=== PATIENT | female | born 1940 | race Caucasian/White ===

== ENCOUNTER 2021-10-11 00:24 | Emergency (ER) | payer MEDICARE, SELFPAY ==
[2021-10-11 00:37] VITALS: BP 182/64; BP 200/100; PULSE 76; PULSE 86; RESP 18; TEMP 36.9; O2SAT 96; BMI 32.1
--- NOTE | 2021-10-11 00:46 | ED.EPISTAXIS ---
History of Present Illness General Chief Complaint: Epistaxis Stated Complaint: nose bleed Source: patient and EMS Mode of arrival: EMS Limitations: no limitations History of Present Illness HPI Narrative: 81-year-old female presents via EMS for epistaxis. Patient has had 3 episodes of nose bleeds today, woke up with a nose bleed. Patient is on aspirin, does not report any digital trauma, and denies any other concerning symptoms. Location: Yes left naris Onset/current episode: Yes hour(s) Duration: Yes intermittent Pertinent past history: Yes hypertension and Yes history of previous nose bleed Context: Yes aspirin use and Yes hypertension Associated symptoms: Yes bleeding down back of throat Treatment prior to arrival: Yes nose pinching, Yes head leaning forward and Yes stuff nose with tissue Related Data Previous Rx's Medication Instructions Recorded amoxicillin 875 mg-potassium 1 tab PO Q12H 3 Days #6 tab 10/11/21 clavulanate 125 mg tablet Allergies Allergy/AdvReac Type Severity Reaction Status Date / Time Sulfa (Sulfonamide Allergy Mild HIVES Verified 10/11/21 00:36 Antibiotics) Review of Systems Review of Systems: Constitutional: No Fever, No Chills ENT/Mouth: Positive epistaxis, No Ear Pain, No Hoarseness, No sore throat Eyes: No Eye Pain, No Swelling, No Redness, No Foreign Body Cardiovascular: No Chest Pain, No SOB Respiratory: No Cough, No Dyspnea Gastrointestinal: No Nausea, No Vomiting, No Diarrhea, No abdominal Pain Genitourinary: No Dysuria, No Hematuria Musculoskeletal: No joint pain, No Myalgias, No Joint Swelling Skin: No Skin lacerations, No rash Neuro: No Weakness, No Numbness, No Paresthesias, No Loss of Consciousness, No Dizziness, No Headache Psych: No Anxiety/Panic, No Depression Heme/Lymph: no easy bruising, no Lymphadenopathy Endocrine: No Polyuria, No Polydipsia Yes all other systems are reviewed and are negative PMFSH Past Medical History Attestation statement: The following information was validated with the patient. Source: old records reviewed Social History Social History Alcohol intake: never Patient Tobacco Use Status: Former Tobacco user Use of substances other than those prescribed or required for medical reasons: No Advance Directives: No Advance Directives Information Provided: Yes Physical Exam Vital Signs: Vital Signs: Last Vital Signs Temp 98.4 F 10/11/21 00:37 Pulse 76 10/11/21 00:37 Resp 18 10/11/21 00:37 BP 182/64 H 10/11/21 00:37 Pulse Ox 96 10/11/21 00:37 BMI result Body Mass Index 32.1 Appearance: Alert. Oriented X3. No acute distress. Eyes: Pupils equal, round and reactive to light. ENT: Pharynx normal. Left Guillermo epistaxis, bleeding at the anterior septum. Neck: Normal inspection. Neck supple. CVS: Normal heart rate and rhythm. Pulses normal. Respiratory: No respiratory distress. Breath sounds normal. Abdomen: Soft and nontender. Skin: Skin warm and dry. Normal skin color. Normal skin turgor. Extremities: Moves all extremities against resistance. Neuro: No motor deficit. No sensory deficit. Cranial nerves 2-12 intact. Course Course Course Narrative: 81-year-old female presents with 3rd episode of epistaxis today. On my exam patient is actively bleeding, I pulled a large blood clot out of her left naris and noted active bleeding to an area of the anterior septum. Considering this is her 3rd episode of bleeding, will apply rhino rocket. Rhino rocket with Betadine applied with good effect. Patient tolerated procedure well. 5 mL of air inflated. Will give Augmentin. 01:41 no bleeding noted. Patient will be discharged home. Understands she must return 3 days to have rocket removed. Patient verbalized understanding of and agrees to plan of care to discharge home. Verbalized understanding of signs and symptoms indicating need for emergent intervention MDM - Epistaxis Differential Diagnosis Differential diagnosis: Likely anterior epistaxis Medical Records Attestation: I reviewed the patient's medical records. Procedures Epistaxis Control Nostril: Yes left Direct inspection: Yes anterior source identified Direct inspection method: Yes nasal speculum Clots removed by: Yes blowing nose and Yes manually Epistaxis treatment: Yes nasal tampon Results of treatment: Yes bleeding controlled Complications: Yes none Discharge Plan Discharge Clinical Impression: Epistaxis Patient Disposition: Home, Self-Care Instructions: Nosebleed (ED) Additional Instructions: You were evaluated for nose bleed. We placed a nasal tampon to stop the bleeding. Please return in 3 days to have device removed. Take Augmentin 875 mg every 12 hours for the next 3 days. Thank you for choosing this emergency department for evaluation. Please follow-up with primary care physician as needed. Return to the emergency department for any new, concerning, or worsening symptoms. Prescriptions: New amoxicillin-pot clavulanate 875-125 mg tablet 1 tab PO Q12H 3 Days Qty: 6 0RF
--- NOTE | 2021-10-11 00:50 | PC.NURSE ---
pt a&ox3, vss - hypertensive, bp has gone down since EMS picked pt up. 3 episodes of epistaxis today, pt on aspirin. pending ED provider.
[2021-10-11 02:00] VITALS: BP 185/70; PULSE 79; O2SAT 96
[2021-10-11] MEDS: Amoxicillin/Potassium Clav 875 MG TABLET PO (02:49)
--- NOTE | 2021-10-11 02:49 | PC.NURSE ---
medicated per provider order. daughter will need a phone call to pick pt up when she gets out of work at 8:00a.
--- NOTE | 2021-10-11 02:52 | PC.NURSE ---
Addendum entered by Talya Kidd 10/11/21 06:53: report given to GLYNN Galvin daughter called, will pick pt up at 8:30AM Original Note: report received from GLYNN Vargas
[2021-10-11 04:00] VITALS: RESP 20
[2021-10-11 05:45] VITALS: BP 184/73; PULSE 74; RESP 16; TEMP 36.6; O2SAT 96
== END 2021-10-11 09:12 | disposition home or self-care (01) ==
PROVIDERS: Emergency Provider Emergency Medicine
DX: R04.0 Epistaxis (principal); I10 Essential (primary) hypertension; Z79.82 Long term (current) use of aspirin
CPT/HCPCS: 30901; 99283; 99284

== ENCOUNTER 2021-12-21 15:35 | Emergency (ER) | payer MEDICARE, SELFPAY ==
--- NOTE | ~2021-12-21 | XR_ITS ---
EXAMINATION: CR X-RAY FOOT AND ANKLE RIGHT CLINICAL INFORMATION: [place] snap femoral fracture. COMPARISON: None TECHNIQUE: 3 views each of the right foot and ankle were obtained. An arrow points to the base of the fifth metatarsal. FINDINGS: There is an acute, spiral type comminuted fracture of the base of the fifth metatarsal. The remainder of the metatarsals are intact. The ankle joint and mortise are intact. The tarsal bones are normally aligned. Small to moderate plantar and retrocalcaneal spurs are noted. The tarsal bones are normally aligned. Mild intertarsal, first and second metatarsophalangeal and distal interphalangeal degenerative joint changes are seen. There is mild soft tissue swelling. XR/XR ankle RT 2V IMPRESSION: 1. Acute, nondisplaced spiral type fracture of the base of the fifth metatarsal. 2. Mild degenerative joint changes as detailed above.
--- NOTE | ~2021-12-21 | XR_ITS ---
EXAMINATION: CR X-RAY FOOT AND ANKLE RIGHT CLINICAL INFORMATION: [place] snap femoral fracture. COMPARISON: None TECHNIQUE: 3 views each of the right foot and ankle were obtained. An arrow points to the base of the fifth metatarsal. FINDINGS: There is an acute, spiral type comminuted fracture of the base of the fifth metatarsal. The remainder of the metatarsals are intact. The ankle joint and mortise are intact. The tarsal bones are normally aligned. Small to moderate plantar and retrocalcaneal spurs are noted. The tarsal bones are normally aligned. Mild intertarsal, first and second metatarsophalangeal and distal interphalangeal degenerative joint changes are seen. There is mild soft tissue swelling. XR/XR foot RT 2V IMPRESSION: 1. Acute, nondisplaced spiral type fracture of the base of the fifth metatarsal. 2. Mild degenerative joint changes as detailed above.
[2021-12-21 16:23] VITALS: BP 186/69; PULSE 73; RESP 18; TEMP 37; O2SAT 98; BMI 30.8
--- NOTE | 2021-12-21 16:43 | ECG_ITS ---
Test Reason : FALL Blood Pressure : / mmHG Vent. Rate : 066 BPM Atrial Rate : 066 BPM P-R Int : 176 ms QRS Dur : 074 ms QT Int : 426 ms P-R-T Axes : 056 -23 053 degrees QTc Int : 446 ms Sinus rhythm with Premature atrial complexes Otherwise normal ECG When compared with ECG of 21-JUL-2018 04:23, Premature atrial complexes are now Present Referred By: Miranda Burks Electronically Signed By:HYACINTH SALCIDO MD
[2021-12-21] MEDS: Dextrose 50 % 25 GM/50 ML SYRINGE IVPUSH (16:48)
[2021-12-21 16:51] LABS: MANUAL DIFF FLAG NO
[2021-12-21 17:01] LABS: Basophils Absolute Auto 0.1 X10*3/uL (0.0-0.2); Basophils Percent Auto 0.4 % (0-2); Eosinophils Absolute Auto 0.2 X10*3/uL (0.0-0.4); Eosinophils Percent Auto 1.2 % (0-4); Hematocrit 39.4 % (37.0-47.0); Hemoglobin 12.8 g/dl (12.0-16.0); Imm Gran Abs Auto 0.04 X10*3/uL (0.00-0.03); Imm Gran Pct Auto 0.3 % (0.0-0.4); Lymphocytes Absolute Auto 4.3 X10*3/uL (1.2-4.9); Mean Corpuscular HGB Conc 32.5 g/dl (31.0-35.0); Mean Corpuscular Hemoglobin 30.8 pg (27.0-33.0); Mean Corpuscular Volume 94.9 fL (80.0-98.0); Mean Platelet Volume 10.5 fL (9.4-12.3); Monocytes Absolute Auto 0.9 X10*3/uL (0.1-1.2); Monocytes Percent Auto 6.7 % (2-11); Neutrophils Percent Auto 59.4 % (45-73); Platelet Count 197 X10*3/uL (160-400); Red Blood Count 4.15 X10*6/uL (4.20-5.50); Red Cell Distribution Width 12.9 % (11.0-16.0); White Blood Count 13.5 X10*3/uL (4.8-10.8)
--- NOTE | 2021-12-21 17:05 | ED.LOWEXIN ---
HPI - Extremity Injury (Lower) General Chief Complaint: Extremity Injury, Lower Stated Complaint: ? R Foot Fx S/P Fall 12/21/21 Time Seen by Provider: 12/21/21 16:43 Source: patient and family History of Present Illness HPI Narrative: 81-year-old female who presents with loss of balance while putting on her pants today and felt a ?snap? right lateral foot with some bruising and then noted afterwards she was not able to bear weight. Patient states that she took her diabetic medications this morning which is insulin and then did not eat. Nursing noted that patient became clammy and pale at triage and noted that her point of care was 37 and patient was immediately given juice. Otherwise, patient denies any fever, chills, nausea, vomiting, abdominal pain, urinary pain/burning/frequency. Related Data Home Medications Medication Instructions Recorded Confirmed atorvastatin 80 mg tablet 1 tab PO BEDTIME 12/21/21 12/21/21 citalopram 20 mg tablet 1 tab PO DAILY 12/21/21 12/21/21 insulin aspart U-100 100 unit/mL 8 unit subcut TID 12/21/21 12/21/21 subcutaneous solution (Novolog U-100 Insulin aspart) insulin glargine 100 unit/mL (3 25 unit subcut BEDTIME 12/21/21 12/21/21 mL) subcutaneous pen (Basaglar KwikPen U-100 Insulin) isosorbide mononitrate 60 mg 1 tab PO DAILY 12/21/21 12/21/21 tablet,extended release 24 hr metoprolol succinate 50 mg 1 tab PO DAILY 12/21/21 12/21/21 tablet,extended release 24 hr pantoprazole 40 mg tablet,delayed 1 tab PO DAILY 12/21/21 12/21/21 release primidone 50 mg tablet 1 tab PO TID 12/21/21 12/21/21 Allergies Allergy/AdvReac Type Severity Reaction Status Date / Time Sulfa (Sulfonamide Allergy Mild HIVES Verified 12/21/21 16:22 Antibiotics) Review of Systems Review of Systems: Pertinent positives and negatives as stated in HPI 10 point review of systems is otherwise negative. [facility] Past Medical History Source: nursing notes reviewed Social History Social History Alcohol intake: never Patient Tobacco Use Status: Former Tobacco user Use of substances other than those prescribed or required for medical reasons: No Advance Directives: No Advance Directives Information Provided: No Physical Exam Vital Signs: Vital Signs: Last Vital Signs Temp 98.6 F 12/21/21 16:23 Pulse 73 12/21/21 16:23 Resp 18 12/21/21 16:23 BP 186/69 H 12/21/21 16:23 Pulse Ox 98 12/21/21 16:23 O2 Del Method 12/21/21 16:23 BMI result Body Mass Index 30.8 VITAL SIGNS: Reviewed. GENERAL: Well developed, well nourished, in no acute distress. HEAD: Normocephalic/atraumatic EYES: PERRLA, EOMI EARS: Ext canals without abnormality OROPHARYNX: no oral lesions noted, posterior pharynx clear LUNGS: Normal breath sounds. No adventitious sounds or accessory muscle use. SpO2<98> CARDIOVASCULAR: Regular rate and rhythm without noted murmurs, no JVD or lower extremity edema. ABDOMEN: Soft, non-tender, non-distended with bowel sounds. MUSCULOSKELETAL: No tenderness, deformities, or effusions noted on gross inspection. EXTREMITIES: No cyanosis, clubbing or edema; RIGHT FOOT: Patient has noted ecchymosis over the 5th metatarsal with pain on palpation and mild swelling. SKIN: Inspection of the skin reveals no rashes NEUROLOGIC: Alert and oriented x 4. Strength and sensation to light touch were grossly intact x 4. Course Course Course Narrative: 81-year-old female with history and clinical presentation consistent fracture of the left foot which was further corroborated by x-ray showing acute nondisplaced spiral type fracture of the base the 5th metatarsal. Her daughter is at bedside but states that she is unable to care for her mother at home as she has just undergone surgery herself and has her left arm in a sling. Otherwise, patient was at home by herself and being placed in a walking boot and having follow-up for Orthopedics will likely increase chances of falls and so plan is for patient to go to short-term rehab. Both the patient and the daughter are aware of the plan. Basic labs will be conducted and case management/PT referrals have been placed. Review of all investigations significant for reactive leukocytosis and chronic stable CKD, serum glucose within normal range and will continue to be monitored. COVID is negative and patient is otherwise medically cleared for placement in short-term rehab. Reevaluation(s) Reevaluation #1: Patient placed in physician observation because the patient needed more time for labs, PT eval, case management placement. At the time observation was started the patient's vital signs were stable, patient is alert and oriented, neuro: Nonfocal, CV RRR, lungs clear Time: 17:13 MDM - Extremity Injury (Lower) Lab Data Result diagrams: 12/21/21 16:46 12/21/21 16:46 Labs: Lab Results 12/21/21 12/21/21 12/21/21 Range/Units 16:24 16:31 16:46 WBC 13.5 H (4.8-10.8) X10*3/uL RBC 4.15 L (4.20-5.50) X10*6/uL Hgb 12.8 (12.0-16.0) g/dl Hct 39.4 (37.0-47.0) % MCV 94.9 (80.0-98.0) fL MCH 30.8 (27.0-33.0) pg MCHC 32.5 (31.0-35.0) g/dl RDW 12.9 (11.0-16.0) % Plt Count 197 (160-400) X10*3/uL MPV 10.5 (9.4-12.3) fL Immature Gran % (Auto) 0.3 (0.0-0.4) % Neut % (Auto) 59.4 (45-73) % Lymph % (Auto) 32.0 (20-40) % [place] % (Auto) 6.7 (2-11) % Eos % (Auto) 1.2 (0-4) % Baso % (Auto) 0.4 (0-2) % Lymph # (Auto) 4.3 (1.2-4.9) X10*3/uL [place] # (Auto) 0.9 (0.1-1.2) X10*3/uL Eos # (Auto) 0.2 (0.0-0.4) X10*3/uL Baso # (Auto) 0.1 (0.0-0.2) X10*3/uL Abs Immat Gran (auto) 0.04 H (0.00-0.03) X10*3/uL Absolute Neuts (auto) 8.0 (2.0-8.3) x10*3/uL Absolute Nucleated RBC 0.000 (0.0-0.012) X10*3/uL Nucleated RBC % (auto) 0.0 (0.0-0.2) /100WBC Sodium (135-145) mmol/L Potassium (3.3-5.1) mmol/L Chloride (96-108) mmol/L Carbon Dioxide (22-29) mmol/L Anion Gap (12-20) BUN (9-16) mg/dL Creatinine (0.5-1.4) mg/dL Estim Creat Clear Calc Estimated GFR POC Glucose 37 L* 46 L* (60-115) mg/dL Random Glucose (60-115) mg/dL Calcium (8.4-10.2) mg/dL Total Bilirubin (0.0-1.0) mg/dL AST (5-31) U/L ALT (0-31) U/L Alkaline Phosphatase (39-117) U/L Troponin I High Sens (<3.5-17.0) ng/L Total Protein (6.5-8.0) g/dL Albumin (3.5-5.0) g/dL COVID-19 ([facility]) (Negative) COVID-19 Clin Com 12/21/21 12/21/21 12/21/21 Range/Units 16:46 16:46 18:11 WBC (4.8-10.8) X10*3/uL RBC (4.20-5.50) X10*6/uL Hgb (12.0-16.0) g/dl Hct (37.0-47.0) % MCV (80.0-98.0) fL MCH (27.0-33.0) pg MCHC (31.0-35.0) g/dl RDW (11.0-16.0) % Plt Count (160-400) X10*3/uL MPV (9.4-12.3) fL Immature Gran % (Auto) (0.0-0.4) % Neut % (Auto) (45-73) % Lymph % (Auto) (20-40) % [place] % (Auto) (2-11) % Eos % (Auto) (0-4) % Baso % (Auto) (0-2) % Lymph # (Auto) (1.2-4.9) X10*3/uL [place] # (Auto) (0.1-1.2) X10*3/uL Eos # (Auto) (0.0-0.4) X10*3/uL Baso # (Auto) (0.0-0.2) X10*3/uL Abs Immat Gran (auto) (0.00-0.03) X10*3/uL Absolute Neuts (auto) (2.0-8.3) x10*3/uL Absolute Nucleated RBC (0.0-0.012) X10*3/uL Nucleated RBC % (auto) (0.0-0.2) /100WBC Sodium 141 (135-145) mmol/L Potassium 4.0 (3.3-5.1) mmol/L Chloride 110 H (96-108) mmol/L Carbon Dioxide 20 L (22-29) mmol/L Anion Gap 15 (12-20) BUN 31 H (9-16) mg/dL Creatinine 1.47 H (0.5-1.4) mg/dL Estim Creat Clear Calc 26.6 Estimated GFR 34 POC Glucose (60-115) mg/dL Random Glucose 65 (60-115) mg/dL Calcium 9.7 (8.4-10.2) mg/dL Total Bilirubin 0.2 (0.0-1.0) mg/dL AST 22 (5-31) U/L ALT 17 (0-31) U/L Alkaline Phosphatase 75 (39-117) U/L Troponin I High Sens 4.0 (<3.5-17.0) ng/L Total Protein 7.6 (6.5-8.0) g/dL Albumin 4.3 (3.5-5.0) g/dL COVID-19 ([facility]) Negative (Negative) COVID-19 Clin Com See Note ECG Data Attestation: I personally reviewed and interpreted this ECG as follows: Prior ECG tracings: available for review Interpretation: Sinus rhythm with PACs, HR-66, no STEMI, [place]/QRS/QTC are within normal limits. Discharge Plan Discharge Clinical Impression: Fracture of fifth metatarsal bone of right foot, Diabetes Patient Disposition: Still a Patient Prescriptions: No Action primidone 50 mg tablet 1 tab PO TID atorvastatin 80 mg tablet 1 tab PO BEDTIME metoprolol succinate 50 mg tablet extended release 24 hr 1 tab PO DAILY isosorbide mononitrate 60 mg tablet extended release 24 hr 1 tab PO DAILY citalopram 20 mg tablet 1 tab PO DAILY insulin aspart U-100 [Novolog U-100 Insulin aspart] 100 unit/mL solution 8 unit subcut TID pantoprazole 40 mg tablet,delayed release (DR/EC) 1 tab PO DAILY insulin glargine [Basaglar KwikPen U-100 Insulin] 100 unit/mL (3 mL) insulin pen 25 unit subcut BEDTIME
[2021-12-21 17:11] LABS: Alanine Aminotransferase 17 U/L (0-31); Albumin Level 4.3 g/dL (3.5-5.0); Alkaline Phosphatase 75 U/L (39-117); Anion Gap 15 (12-20); Aspartate Amino Transferase 22 U/L (5-31); Bilirubin Total 0.2 mg/dL (0.0-1.0); Blood Urea Nitrogen 31 mg/dL (9-16); Calcium 9.7 mg/dL (8.4-10.2); Carbon Dioxide 20 mmol/L (22-29); Chloride 110 mmol/L (96-108); Creatinine Clr Calc Pharmacy 26.6; Estimated Glomerular Filt Rate 34; Glucose Random 65 mg/dL (60-115); Sodium 141 mmol/L (135-145); Total Protein 7.6 g/dL (6.5-8.0)
[2021-12-21 17:25] LABS: Glucose, Whole Blood 46 mg/dL (60-115)
[2021-12-21 17:25] LABS: Glucose, Whole Blood 37 mg/dL (60-115)
[2021-12-21] MEDS: Acetaminophen 325 MG TABLET 975 MG PO (17:47)
--- NOTE | 2021-12-21 18:28 | PHA.MEDREC ---
Pharmacy Consult ? Medication Reconciliation Pharmacy has completed the medication reconciliation. Dose on basaglar decreased to 25 units Thanks Esteban
[2021-12-21 18:38] LABS: COVID-19 Test Negative (Negative); IDNOW Serial# 9DB6401D
--- NOTE | 2021-12-21 18:58 | PC.NURSE ---
Assumed care of this pt. at 1900 - report from Lani Herrera RN
[2021-12-21 19:55] VITALS: BP 155/64; PULSE 62; RESP 14; TEMP 36.8; O2SAT 96
--- NOTE | 2021-12-21 19:55 | PC.NURSE ---
Pt. awaiting walking boot. Nursing construction supervisor/carpenter checked for boot in OR and there were none. Pt. will need to obtain walking boot from Ortho. tomorrow, 12/22
[2021-12-21 20:23] LABS: Glucose, Whole Blood 51 mg/dL (60-115)
--- NOTE | 2021-12-21 21:00 | MHC.CM.ED ---
CM met with patient at request of Dr. Burks. Pt has spiral fx of base of 5th metatarsal. Lives alone. Daughter recently had abd surgery and has a fx wrist. Unable to assist mother at this time. Pt would like to go home, but does understand that she may have trouble getting around with a boot on and her walker. Reluctantly agreeable to STR. Understands she will have a PT eval in the am and they will make recommendations for further care. Pt uses a wheeled walker and has MOW. HCP/daughter Jennifer Cummings ([phone]). Vax/boosted with [employer]. Pt has no requests for facilities. Will make local referrals. Pt awake she will have final decision once bed offers are made. CM to follow for d/c needs.
[2021-12-22] VITALS: BP 191/71; PULSE 64; RESP 16; TEMP 36.6; O2SAT 98
[2021-12-22 00:23] LABS: Glucose, Whole Blood 92 mg/dL (60-115)
--- NOTE | 2021-12-22 00:48 | PC.NURSE ---
GLYNN ALONSO IS AWARE OF PATIENT HIGH BP .
[2021-12-22] MEDS: Atorvastatin Calcium 80 MG TABLET PO (01:32)
[2021-12-22] MEDS: Primidone 50 MG TABLET PO ×2 (01:32→11:24)
[2021-12-22 02:48] LABS: CDiff Gene PCR NEGATIVE (Negative)
[2021-12-22] MEDS: Acetaminophen 325 MG TABLET 975 MG PO (05:11)
[2021-12-22 05:26] VITALS: BP 179/57; PULSE 67; RESP 17; TEMP 36.7; O2SAT 96
[2021-12-22 07:19] VITALS: BP 190/62; PULSE 76; RESP 16; TEMP 36.4; O2SAT 95
[2021-12-22 07:24] LABS: Glucose, Whole Blood 156 mg/dL (60-115)
[2021-12-22 07:37] VITALS: PULSE 76; O2SAT 95
[2021-12-22] MEDS: Insulin Lispro 100 UNIT/ML 3 ML VIAL 8 UNIT SUBCUT (08:36)
[2021-12-22] MEDS: Isosorbide Mononitrate 60 MG TAB.ER.24H PO (08:36)
[2021-12-22] MEDS: Escitalopram Oxalate 10 MG TABLET PO (08:36)
[2021-12-22] MEDS: Metoprolol Succinate ER 50 MG TAB.ER.24H PO (08:36)
--- NOTE | 2021-12-22 08:47 | PC.NURSE ---
assumed care of pt; pt states no pain; administered pt meds per MAR; call hamilton within reach
--- NOTE | 2021-12-22 10:01 | PC.NURSE ---
Pt's daughter states she doesn't feel safe bringing pt home, aware pt passed PT at this time. CM made aware, she will f/u with daughter.
--- NOTE | 2021-12-22 10:05 | MHC.CM.ED ---
Addendum entered by Steph Ga 12/22/21 12:24: Spoke with patient's daughter, Jennifer, via telephone at [phone]. T/w explained patient passed physical therapy and rehab would not be authorized by Medicare. Jennifer disappointed but understands patient can't privately pay at a short term rehab. Jennifer will be at ER around 1pm to transport her mother home. Patient, Glenis MAKI and Alexia PAUL aware. Original Note: Patient remains in ER. Physical therapy eval completed. Home with services is recommended. Met with patient in regards to discharge planning. Patient feels she can safely return home with VNA. Patient's daughter will transport her home when she returns from her doctors appointment. Spoke with GLYNN Galvin about discharge plan. Glenis notified T/W that patient's daughter does not feel patient can safely return home. Will wait for daughter to return so discharge plan can be discussed. Continue to monitor for d/c needs.
--- NOTE | 2021-12-22 10:22 | PC.NURSE ---
Called pharmacy to request primidone. To be sent.
[2021-12-22 11:00] LABS: Appearance Urine CLEAR; Color Urine YELLOW; Glucose Urine UA NEG (NEG); Leukocyte Esterase Urine NEG (NEG); Nitrite Urine NEG (NEG); UACC Culture Trigger NO; Urine Blood 2+ (NEG); Urine Ketones NEG (NEG); Urine Protein 2+ MG/DL (NEG-TRACE)
[2021-12-22 11:14] LABS: Bacteria Urine 3+ /LPF; Squamous Epithelial Cell Urine TRACE /LPF
== END 2021-12-22 13:14 | disposition home or self-care (01) ==
PROVIDERS: Nurse Practitioner Family; Emergency Provider Student in an Organized Health Care Education/Training Program; PCP Internal Medicine
DX: S92.501A Displaced unspecified fracture of right lesser toe(s), initial encounter for closed fracture (principal); E11.9 Type 2 diabetes mellitus without complications; M25.571 Pain in right ankle and joints of right foot; R07.89 Other chest pain; W01.0XXA Fall on same level from slipping, tripping and stumbling without subsequent striking against object, initial encounter; Y93.9 Activity, unspecified; Y92.9 Unspecified place or not applicable; Y99.9 Unspecified external cause status; Z79.899 Other long term (current) drug therapy; Z20.822 Contact with and (suspected) exposure to COVID-19; Z87.891 Personal history of nicotine dependence
CPT/HCPCS: 36415; 73600; 73620; 80053; 81001; 82947; 84484; 85025; 87493; 87635; 93005; 96374; 97162; 99285

== ENCOUNTER 2022-01-22 19:28 | Emergency (ER) | payer MEDICARE, SELFPAY ==
[2022-01-22 19:33] VITALS: BP 182/69; BP 210/80; PULSE 81; PULSE 85; RESP 18; TEMP 36.7; O2SAT 98; BMI 26.4
--- NOTE | 2022-01-22 19:40 | ED_ITS ---
HPI - Eye Problem General Chief complaint: Eye Problems Stated complaint: bleeding in the left eye Time Seen by Provider: 01/22/22 19:36 Source: patient and EMS Mode of arrival: EMS Limitations: no limitations History of Present Illness HPI Narrative: 81-year-old female with history of diabetic retinopathy managed by Dr. Mcnamara in [place] presents to the ER for evaluation of acute onset of left eye bleeding and dull pain after she had an injection in the left eye at 17:00 today. she states she noted her left eye the start to feel funny and when she looked in the mirror she noticed a most the entire portion of her sclera was bloody. She reported a new dull achy type pain. She reported persistent blurry vision in that left eye, unchanged from prior. she reports a history of the same procedure in the right eye about a month ago with no adverse side effects. She is on aspirin but no full anticoagulation. MD chief complaint: eye pain and eye redness Onset (ago): hour(s) Onset description: sudden Duration: constant Location: left eye Eye Symptoms: redness and pain Mechanism: direct trauma Severity: mild Severity scale (1-10): 3 If Pain, Quality: aching Context: history of glaucoma and recent eye procedure Associated symptoms: none Treatments Prior to Arrival: none Related Data Home Medications Medication Instructions Recorded Confirmed atorvastatin 80 mg tablet 1 tab PO BEDTIME 12/21/21 12/21/21 citalopram 20 mg tablet 1 tab PO DAILY 12/21/21 12/21/21 insulin aspart U-100 100 unit/mL 8 unit subcut TID 12/21/21 12/21/21 subcutaneous solution (Novolog U-100 Insulin aspart) insulin glargine 100 unit/mL (3 25 unit subcut BEDTIME 12/21/21 12/21/21 mL) subcutaneous pen (Basaglar KwikPen U-100 Insulin) isosorbide mononitrate 60 mg 1 tab PO DAILY 12/21/21 12/21/21 tablet,extended release 24 hr metoprolol succinate 50 mg 1 tab PO DAILY 12/21/21 12/21/21 tablet,extended release 24 hr pantoprazole 40 mg tablet,delayed 1 tab PO DAILY 12/21/21 12/21/21 release primidone 50 mg tablet 1 tab PO TID 08/01/22 08/01/22 Allergies Allergy/AdvReac Type Severity Reaction Status Date / Time Sulfa (Sulfonamide Allergy Mild HIVES Verified 12/21/21 16:22 Antibiotics) Review of Systems Review of Systems: Constitutional: No Fever, No Chills ENT/Mouth: No sore throat, No Rhinorrhea Eyes: + Eye Pain, No Swelling, + Redness, +Blurred vision Cardiovascular: No Chest Pain, No SOB Respiratory: No Cough, No Sputum Gastrointestinal: No Nausea, No Vomiting, No abdominal Pain Genitourinary: No Hematuria Musculoskeletal: No joint pain, No Myalgias Skin: No Skin Lesions, No rash Neuro: No Weakness, No Numbness, No Dizziness, No Headache Psych: + Anxiety/Panic, No Depression Heme/Lymph: No Bruising PMFSH Social History Social History Alcohol intake: never Patient Tobacco Use Status: Former Tobacco user Use of substances other than those prescribed or required for medical reasons: No Advance Directives: No Advance Directives Information Provided: No Physical Exam Vital Signs: Vital Signs: Last Vital Signs Temp 98.0 F 01/22/22 19:41 Pulse 81 01/22/22 19:41 Resp 18 01/22/22 19:41 BP 182/69 H 01/22/22 19:41 Pulse Ox 98 01/22/22 19:41 O2 Del Method 01/22/22 19:41 BMI result Body Mass Index 26.4 Appearance: Alert. Oriented X3. No acute distress. HEENT: left eye with scleral hemorrhage involving the upper left and lower left area, pupil is dilated, prior glaucoma surgery changes. CVS: Normal heart rate and rhythm. Pulses normal. Respiratory: No respiratory distress. Skin: Skin warm and dry. Normal skin color. Normal skin turgor. No rashes. Extremities: normal inpsection Neuro: Oriented X 3. No motor deficit. No sensory deficit. Course Course Course Narrative: 81-year-old female with recent injection to her left eye presents to the ER with sudden onset dull ache and bleeding some flare up. She is not anticoagulation. She has baseline blurred vision in the left eye with end-stage diabetic retinopathy. On examination it appears as this is a subconjunctival hemorrhage as a complication of the procedure. Her intra-ocular pressure is 10. Dr. Mcnamara's office has been contacted. Reevaluation(s) Reevaluation #1: Spoke with Dr. Mcnamara's colleague - normal complication of the injections, recommend warm compresses and tylenol PRN. patient reassured. stable for d/c home. Critical Care Time Critical Care Time Critical Care Time: No Discharge Plan Discharge Clinical Impression: Subconjunctival hemorrhage Patient Disposition: Home, Self-Care Instructions: Subconjunctival Hemorrhage (ED) Additional Instructions: Use warm compresses to your eye a few times per day Take tylenol as needed for pain The bleeding and pain can be normal after this procedure follow-up with Dr. Mcnamara as needed Prescriptions: No Action primidone 50 mg tablet 1 tab PO TID atorvastatin 80 mg tablet 1 tab PO BEDTIME metoprolol succinate 50 mg tablet extended release 24 hr 1 tab PO DAILY isosorbide mononitrate 60 mg tablet extended release 24 hr 1 tab PO DAILY citalopram 20 mg tablet 1 tab PO DAILY insulin aspart U-100 [Novolog U-100 Insulin aspart] 100 unit/mL solution 8 unit subcut TID pantoprazole 40 mg tablet,delayed release (DR/EC) 1 tab PO DAILY insulin glargine [Basaglar KwikPen U-100 Insulin] 100 unit/mL (3 mL) insulin pen 25 unit subcut BEDTIME
[2022-01-22 19:41] VITALS: BP 182/69; PULSE 81; RESP 18; TEMP 36.7; O2SAT 98
[2022-01-22] MEDS: Tetracaine HCl/PF 0.5% Oph Sol 4 ML DROPS 1 DROP EYE-LEFT (20:44)
--- NOTE | 2022-01-22 20:45 | PC.NURSE ---
Pt. up for discharge. Pt. attempting to call family members for a ride home at this time.
--- NOTE | 2022-01-22 22:39 | PC.NURSE ---
Pt. still awaiting ride home from family member. Unsafe to be d/c to waiting room d/t blurred vision from glaucoma shot (reason for visit), and pt. being a fall risk because of this.
--- NOTE | 2022-01-22 23:42 | PC.NURSE ---
Another attempt to contact pt.'s daughter, Jennifer, for transportation home
--- NOTE | 2022-01-23 03:33 | PC.NURSE ---
Daughter, Jennifer, called back. Jennifer planning to shredder picker her mother at 05:30am this morning.
[2022-01-23 05:57] VITALS: BP 170/74; PULSE 89; RESP 18; TEMP 36.6; O2SAT 95
--- NOTE | 2022-01-23 06:02 | PC.NURSE ---
Pt. d/c home safely to daughter, Jennifer, in front lobby. Escorted to front lobby with RN for safety
== END 2022-01-23 06:05 | disposition home or self-care (01) ==
PROVIDERS: Emergency Provider Student in an Organized Health Care Education/Training Program; PCP Internal Medicine
DX: H11.32 Conjunctival hemorrhage, left eye (principal)
CPT/HCPCS: 99283; 99284

== ENCOUNTER 2022-12-30 10:57 | Outpatient (AMB) | payer MEDICARE, SELFPAY ==
--- NOTE | 2022-12-30 11:01 | A.OFFPC_ITS ---
Vital Signs 12/30/22 11:03 Height 5 ft 1 in Weight 141 lb BMI 26.6 BP 126/70 Blood Pressure Location Rt brachial Position Sitting Pulse 68 Pulse Source Pulse Oximeter Pulse Oximetry (%) 98 Intake Visit Reasons: COOK FISH EGGS/HTN , Diabetes , Asthma Intake Note: pt is here for npv, establish care Nursery Attendant Required: No Accompanied by: Daughter Allergies Sulfa (Sulfonamide Antibiotics) Allergy (Mild, Verified 12/30/22 11:24) HIVES Medication List - Last Reconciled 12/30/22 by Todd Espinal PA-C ascorbic acid (vitamin C) ER 500 mg PO DAILY aspirin 81 mg PO DAILY atorvastatin 1 tab PO BEDTIME calcium carbonate (Calcium) 600 mg PO DAILY cetirizine 10 mg PO DAILY PRN cholecalciferol (vitamin D3) 10 mcg PO DAILY citalopram 1 tab PO DAILY ferrous sulfate 325 mg PO DAILY insulin aspart U-100 (Novolog U-100 Insulin aspart) 8 units subcut TID insulin glargine (Basaglar KwikPen U-100 Insulin) 25 units subcut BEDTIME insulin syringe-needle U-100 (BD Insulin Syringe Ultra-Fine) As directed isosorbide mononitrate ER 1 tab PO DAILY metoprolol succinate ER 1 tab PO DAILY nitroglycerin 0.4 mg sublingual Q5M PRN pantoprazole 20 mg PO QAM pen needle, diabetic (BD Ultra-Fine Short Pen Needle) As directed primidone 1 tab PO TID Tobacco use date assessed: 12/30/22 Fall risk assessment: No Falls in past year Last assessed Fall Risk: 12/30/22 Dental Screening Dental Screen Date: 12/30/22 Did you have a dental visit in the last 12 months?: No Did you have a dental problem in the last 6 months where you did not have access to dental care?: No Was dental information given to patient?: Patient declined HPI COOK FISH EGGS/HTN , Diabetes , Asthma HPI Details Patient is an 82-year-old female here today for new patient visit. This the 1st time I am meeting this 82-year-old female with a past medical history significant for type 2 diabetes, hypertension, depression, AFIB, CAD( stent placement), COPD, CHF, GERD. .. Type 2 diabetes: Patient continues on insulin therapy and has been able to manage her blood sugars fairly well. Was seeing chain saw mechanic while in [place]. Today's A1c at 7.9. .. AFIB: Not on anticoagulation due to a severe head bleed, continues on aspirin daily. Followed by surface ship usw supervisor in [place] like to transfer care to [facility]. Currently under rate control with metoprolol. She also has a history of coronary artery disease and has a stent placed. Continues on high potency statin and aspirin. Will check her fasting lipid panel to ensure appropriate LDL below 70. .. Congestive heart failure : Has a chronic history of Congestive heart failure though at this time no need for diuretics. Seems euvolemic on physical exam today. .. Right renal mass: Reviewed previous PCP and Nephrology records--> Was followed by senior sql server database developer [place] for right renal mass. She was to undergo MRI with contrast as recent imaging showing enlarging right renal mass Vaccines: Up-to-date with COVID vaccine, tetanus vaccine and shingles vaccine PFSH Surgical History History of ankle surgery Hx laparoscopic cholecystectomy Hx of hernia repair S/P HORTENCIA (total abdominal hysterectomy) Family History Mother Diabetes Father COPD (chronic obstructive pulmonary disease) Social History Housing: Apartment Alcohol intake: never Patient Tobacco Use Status: Former Tobacco user e-Cigarette/Vaping Use: Never Used service: No Current occupational status: retired Cognitive needs: No Hearing needs: No Vision needs: Yes Questionnaire PHQ-9 Over the last 2 weeks, how often have you been bothered by any of the following problems? 1. Little interest or pleasure in doing things: not at all 2. Feeling down, depressed, or hopeless: several days 3. Trouble falling or staying asleep, or sleeping too much: nearly every day 4. Feeling tired or having little energy: several days 5. Poor appetite or overeating: not at all 6. Feeling bad about yourself - or that you are a failure or have let yourself or your family down: several days 7. Trouble concentrating on things, such as reading the newspaper or watching television: not at all 8. Moving or speaking so slowly that other people could have noticed. Or the opposite - being so fidgety or restless that you have been moving around a lot more than usual: nearly every day 9. Thoughts that you would be better off or of hurting yourself in some way: not at all Total score: 9 Depression Screening Interpretation: Positive 18913 - PHQ-9 Billing: Yes Source: Developed by Drs. Emigdio Webber, Cathy Will, Khris Bernal and colleagues, with an educational belle from [employer]. Thrive Questionnaire Date Thrive assessed: 12/30/22 I am a: Patient What is your living situation today?: I have a steady place to live Within the past 12 months, did the food you bought not last and you didn't have the money to get more?: Never true Within the past 12 months, did you worry whether your food would run out before you got money to buy more?: Never true Do you have trouble paying for medicines?: No Do you have trouble getting transportation to medical appointments?: No Do you have trouble paying your heating and electricity bill?: No Do you have trouble taking care of your child, family member or friend?: No Do you have trouble with day-to-day activities such as bathing, preparing meals, shopping, managing finances, etc.?: No Are you currently unemployed and looking for a job?: No Are you interested in more education?: No Please select the resources that you would like help with: None Currently or been in a relationship where the following occur: no concerns reported SAI-7 AMB Questionnaire SAI-7 Date SAI - 7 assessed: 12/30/22 Feeling nervous, anxious, or on edge: 3 = Nearly every day Not being able to stop or control worryin = Nearly every day Worrying too much about different things: 3 = Nearly every day Trouble relaxin = Nearly every day Being so restless that it is hard to sit still: 3 = Nearly every day Becoming easily annoyed or irritable: 1 = Several days Feeling afraid as if something awful might happen: 0 = Not at all Total ASI-7 score (0-4 normal; 5-9 mild; 10-14 moderate; 15-21 severe): 16 Source: Developed by Drs. Emigdio Webber, Khris Barrientos and colleagues, with an educational belle from [employer]. SAI-7 Assessment Billing SAI-7 Assessment Tool: SAI-7 Assessment 37343 Review of Systems Const Denies headache(s) Eyes Denies loss of vision ENT Denies vertigo, Denies dizziness, Denies headache(s) and Denies sore throat Card Denies chest pain, Denies leg edema and Denies lightheadedness Resp Denies cough, Denies hemoptysis and Denies wheezing GI Denies abdominal pain, Denies melena, Denies constipation, Denies diarrhea and Denies vomiting Denies urinary frequency, Denies dysuria and Denies urinary urgency Musc Denies arthralgias, Denies joint swelling, Denies numbness and Denies tingling Neuro Denies Abnormal speech present, Denies behavioral changes, Denies vertigo, Denies dizziness, Denies headache(s), Denies loss of vision, Denies memory loss, Denies numbness and Denies tingling Psych Denies anxiety, Denies behavioral changes, Denies depression, Denies memory loss and Denies panic attacks Paul/Lymph Denies easy bleeding and Denies easy bruising Aller/Immun Denies wheezing Physical exam (Primary Care) Vital Signs: Last Vital Signs Pulse 68 12/30/22 11:03 BP 126/70 12/30/22 11:03 Pulse Ox 98 12/30/22 11:03 BMI result Body Mass Index 26.6 Tobacco/Smoking Status: Tobacco use Status Tobacco use date assessed 12/30/22 12/30/22 11:03 Patient Tobacco Use Status Former Tobacco user 12/30/22 11:14 e-Cigarette/Vaping Use Never Used 12/30/22 11:18 PHQ-9: PHQ-9 Score PHQ-9: Total score 9 12/30/22 11:27 Depression Screening Interpretation: Positive Thrive Assessment: Date of Thrive Assessment Date Thrive assessed 12/30/22 12/30/22 11:18 Currently or been in a relationship where the following occur: no concerns reported Const General: healthy appearing, no acute distress, alert and awake Nutritional Appearance: well nourished Orientation/consciousness: oriented to person, oriented to place and oriented to time HENMT Ears: TM's normal bilaterally General nose exam: Normal nasal mucous membranes and turbinates present Eyes Conjunctivae: conjunctivae normal Sclerae: sclerae normal Pupils: Equal, round and reactive pupils present Neck Neck: Yes no lymphadenopathy and Yes no JVD Thyroid: Thyroid normal Carotids: no bruits Resp Effort & Inspection: normal respiratory effort and not tachypneic Auscultation: no crackles, no rales, no rhonchi and no wheezes Cardio Rate: regular rate Rhythm: regular rhythm Heart sounds: no murmurs and normal S1 and S2 GI Palpation (GI): Soft to palpation, nontender, no hepatomegaly and no splenomegaly Auscultation: normal bowel sounds Back/Spine/Pelvis Back/spine/pelvis image: 1. SMALL SUBCUTANEOUS CYSTIC LIKE MASS OVER THE UPPER BACK Skin General skin exam: no rashes or lesions noted and dry skin Neuro General: oriented to person, oriented to place and oriented to time Cranial nerves: Yes Equal, round and reactive pupils present Speech: No Abnormal speech present Gait exam (Neuro): Normal gait present Motor exam (neuro): no tremor noted Extrem Right upper extremity: full ROM Left upper extremity: full ROM Right lower extremity: full ROM; no edema Left lower extremity: full ROM; no edema Psych Mental Status: mental status grossly normal Speech and movement: Normal speech and movement present Affect: normal affect Attitude: cooperative Thought process: Normal thought process present Results AMB Hemoglobin A1c AMB Hemoglobin A1c 7.9 % Last Edit by Xavi Bolden CMA on 12/30/22 11: 32 Results Reviewed Results Reviewed: Laboratory Last Values Hgb A1c (Clinic) 7.9 % (4.0-6.0) H 12/30/22 11:31 Assessment and Plan Assessment & Plan (1) DMII (diabetes mellitus, type 2): Code(s): E11.9 - Type 2 diabetes mellitus without complications Qualifiers: Diabetes mellitus complication status: with hyperglycemia Diabetes mellitus director long term care insulin use: with director long term care use Qualified Code(s): E11.65 - Type 2 diabetes mellitus with hyperglycemia; Z79.4 - FDC (current) use of insulin Plan: Patient's type 2 diabetes controlled with current insulin regime. Goal A1c is to be below 8.0 due to patient's age and comorbidities. (2) HTN (hypertension): Code(s): I10 - Essential (primary) hypertension Qualifiers: Hypertension type: primary hypertension Qualified Code(s): I10 - Essential (primary) hypertension Plan: Blood pressure acceptable today in office. Will continue her current dose of antihypertensive medication with goal blood pressure be below 140/90 (3) GERD (gastroesophageal reflux disease): Code(s): K21.9 - Gastro-esophageal reflux disease without esophagitis Qualifiers: Esophagitis presence: without esophagitis Qualified Code(s): K21.9 - Gastro-esophageal reflux disease without esophagitis Plan: Continues on PPI therapy with good effect on reducing her GERD symptoms. (4) MDD (major depressive disorder), recurrent episode, moderate: Code(s): F33.1 - Major depressive disorder, recurrent, moderate Plan: Patient continues on SSRI therapy over last several years. She reports she was in a D depression several years ago after her passed. Currently gets support from her family and feels stable from a mental health point of view. (5) SAI (generalized anxiety disorder): Code(s): F41.1 - Generalized anxiety disorder Plan: Patient's SAI-7 score positive for moderate anxiety which has been an existing condition for her. She continues on SSRI therapy. (6) Afib: Code(s): I48.91 - Unspecified atrial fibrillation Qualifiers: Atrial fibrillation type: persistent (not longstanding) Qualified Code(s): I48.19 - Other persistent atrial fibrillation Plan: Patient has a chronic history of AFib. Was placed on anticoagulation in the past though had a severe head bleed from a fall. Was taken off anticoagulation and now on daily aspirin therapy. She otherwise denies any chest discomfort palpitations or dizziness. She would like to establish care with a surface ship usw supervisor here in [facility] (7) CHF (congestive heart failure), NYHA class III: Code(s): I50.9 - Heart failure, unspecified Qualifiers: Congestive heart failure chronicity: chronic Congestive heart failure type: diastolic Qualified Code(s): I50.32 - Chronic diastolic (congestive) heart failure (8) Right renal mass: Code(s): N28.89 - Other specified disorders of kidney and ureter Plan: As per HPI patient has a right renal mass that has enlarged the last year. She was due for MRI with contrast though unsure she had had this done. Will refer to senior sql server database developer here in [facility] for further evaluation and management of her right renal mass (9) Hypothyroid: Code(s): E03.9 - Hypothyroidism, unspecified Qualifiers: Hypothyroidism type: unspecified Qualified Code(s): E03.9 - Hypothyroidism, unspecified Plan: Patient has a history of slightly elevated TSH readings. Was followed by endocrinology as well for this. Has not been started on levothyroxine at this time will continue to follow TSH (10) Subcutaneous cyst: Code(s): L72.9 - Follicular cyst of the skin and subcutaneous tissue, unspecified Plan: Has a small subcutaneous cyst over upper back that has been drained in the past by general surgeon. She reports she has felt this is come back and would like to watch and wait at this time. Offered general surgeon referral though she declines at this time. Orders: Orders Comprehensive [facility]. Panel Fast Today I10 - Essential (primary) hypertension Lipid Panel Today I50.32 - Chronic diastolic (congestive) heart failure NT-proBNP Today I50.32 - Chronic diastolic (congestive) heart failure Complete Blood Count no Diff Today I10 - Essential (primary) hypertension TSH reflex Free T4 Today E03.9 - Hypothyroidism, unspecified AMB Hemoglobin A1c Today E11.9 - Type 2 diabetes mellitus without complications Referrals Cardiology Referral I48.91 - Unspecified atrial fibrillation, I50.9 - Heart failure, unspecified Nephrology Referral N28.89 - Other specified disorders of kidney and ureter Medications: New pantoprazole 20 mg PO QAM 90 days 90 tabs 2RF K21.9 - Gastro-esophageal reflux disease without esophagitis nitroglycerin do not exceed 3 doses per episode 0.4 mg sublingual Q5M 4 days PRN 10 tabs 0RF chest pain I50.32 - Chronic diastolic (congestive) heart failure Changed From atorvastatin 1 tab PO BEDTIME I50.32 - Chronic diastolic (congestive) heart failure To atorvastatin 80 mg PO BEDTIME 90 days 90 tabs 2RF I50.32 - Chronic diastolic (congestive) heart failure From citalopram 1 tab PO DAILY F33.1 - Major depressive disorder, recurrent, moderate To citalopram 20 mg PO DAILY 90 days 90 tabs 2RF F33.1 - Major depressive disorder, recurrent, moderate From isosorbide mononitrate ER 1 tab PO DAILY I50.32 - Chronic diastolic (congestive) heart failure To isosorbide mononitrate ER 60 mg PO DAILY 90 days 90 tabs 2RF I50.32 - Chronic diastolic (congestive) heart failure From primidone 1 tab PO TID R25.1 - Tremor, unspecified To primidone 50 mg PO TID 90 days 270 tabs 2RF R25.1 - Tremor, unspecified From metoprolol succinate ER 1 tab PO DAILY I48.19 - Other persistent atrial fibrillation To metoprolol succinate ER 50 mg PO DAILY 90 tabs 2RF I48.19 - Other persistent atrial fibrillation Coding Level of Care Code New Pt Level 4 (89569) Diagnoses DMII (diabetes mellitus, type 2) E11.65; Z79.4 Diabetes mellitus complication status: with hyperglycemia Diabetes mellitus [facility] insulin use: with [facility] use HTN (hypertension) I10 Hypertension type: primary hypertension GERD (gastroesophageal reflux disease) K21.9 Esophagitis presence: without esophagitis MDD (major depressive disorder), recurrent episode, moderate F33.1 SAI (generalized anxiety disorder) F41.1 Afib I48.19 Atrial fibrillation type: persistent (not longstanding) CHF (congestive heart failure), NYHA class III I50.32 Congestive heart failure chronicity: chronic Congestive heart failure type: diastolic Right renal mass N28.89 Hypothyroid E03.9 Hypothyroidism type: unspecified Subcutaneous cyst L72.9 Additional Codes SAI-7 Assessment Billing - SAI-7 Assessment Tool: SAI-7 Assessment [id number] ([id number])
[2022-12-30 11:03] VITALS: BP 126/70; PULSE 68; O2SAT 98; BMI 26.6
== END 2022-12-30 12:07 | disposition home or self-care (01) ==
PROVIDERS: Visit Provider Physician Assistant
DX: E11.65 Type 2 diabetes mellitus with hyperglycemia (principal); Z79.4 Long term (current) use of insulin; I10 Essential (primary) hypertension; K21.9 Gastro-esophageal reflux disease without esophagitis; F33.1 Major depressive disorder, recurrent, moderate; I48.19 Other persistent atrial fibrillation; I50.32 Chronic diastolic (congestive) heart failure; E03.9 Hypothyroidism, unspecified; F41.1 Generalized anxiety disorder; N28.89 Other specified disorders of kidney and ureter; L72.9 Follicular cyst of the skin and subcutaneous tissue, unspecified
CPT/HCPCS: 83036; 99204

== ENCOUNTER 2022-12-31 07:10 | Outpatient (REF) | payer MEDICARE, SELFPAY ==
[2022-12-31 08:13] LABS: Hematocrit 40.8 % (37.0-47.0); Mean Corpuscular HGB Conc 31.9 g/dl (31.0-35.0); Mean Corpuscular Volume 97.1 fL (80.0-98.0); Mean Platelet Volume 11.6 fL (9.4-12.3); Platelet Count 247 X10*3/uL (160-400); Red Cell Distribution Width 13.5 % (11.0-16.0); White Blood Count 10.3 X10*3/uL (4.8-10.8)
[2022-12-31 08:52] LABS: Alanine Aminotransferase 115 U/L (0-31); Albumin Level 3.9 g/dL (3.5-5.0); Alkaline Phosphatase 73 U/L (39-117); Anion Gap 14 (12-20); Aspartate Amino Transferase 75 U/L (5-31); Bilirubin Total 0.4 mg/dL (0.0-1.0); Blood Urea Nitrogen 41 mg/dL (9-16); Calcium 10.2 mg/dL (8.4-10.2); Carbon Dioxide 21 mmol/L (22-29); Chloride 109 mmol/L (96-108); Cholesterol 137 mg/dL; Estimated Glomerular Filt Rate 31; Glucose Fasting 127 mg/dL (60-99); HDL Cholesterol 36 mg/dL; LDL Cholesterol Calculated 77 mg/dl; Potassium 4.1 mmol/L (3.3-5.1); Sodium 140 mmol/L (135-145); Total Protein 7.5 g/dL (6.5-8.0); Triglycerides 120 mg/dL
[2023-01-05 15:58] LABS: NT-proBNP 811 pg/mL (<450)
== END 2022-12-31 07:11 | disposition home or self-care (01) ==
LOC: HO.LAB 07:10
PROVIDERS: PCP Physician Assistant; Visit Provider Physician Assistant
DX: I11.0 Hypertensive heart disease with heart failure (principal); I50.32 Chronic diastolic (congestive) heart failure; E03.9 Hypothyroidism, unspecified
CPT/HCPCS: 36415; 80053; 80061; 83880; 84443; 85027

== ENCOUNTER 2023-02-08 14:06 | Outpatient (AMB) | payer MEDICARE, SELFPAY ==
--- NOTE | 2023-02-08 14:10 | A.OFFVIS_ITS ---
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 Teddy/ afib /heart failure Intake Note: NPV w/ EKG Supervisor Rubber Covering Required: No Accompanied by: Daughter Allergies Sulfa (Sulfonamide Antibiotics) Allergy (Mild, Verified 02/08/23 14:19) HIVES Medication List - Last Reconciled 02/08/23 by Tom Jordan MD ascorbic acid (vitamin C) ER 500 mg PO DAILY aspirin 81 mg PO DAILY atorvastatin 80 mg PO BEDTIME 90 days calcium carbonate (Calcium) 600 mg PO DAILY cetirizine 10 mg PO DAILY PRN cholecalciferol (vitamin D3) 10 mcg PO DAILY citalopram 20 mg PO DAILY 90 days ferrous sulfate 325 mg PO DAILY insulin aspart U-100 (Novolog U-100 Insulin aspart) 8 units subcut TID insulin glargine (Basaglar KwikPen U-100 Insulin) 25 units subcut BEDTIME insulin syringe-needle U-100 (BD Insulin Syringe Ultra-Fine) As directed isosorbide mononitrate ER 60 mg PO DAILY 90 days metoprolol succinate ER 50 mg PO DAILY nitroglycerin 0.4 mg sublingual Q5M PRN 4 days pantoprazole 20 mg PO QAM 90 days pen needle, diabetic (BD Ultra-Fine Short Pen Needle) As directed primidone 50 mg PO TID 90 days HPI HPI Comments History of Present Illness Details Alejandra is here for consultation regarding various cardiac issues. Listed to have paroxysmal atrial fibrillation, coronary disease as well as congestive heart failure. Per daughter who comes for the appointment, patient apparently goes to [facility] but she would like to switch her care to us due to convenience. Within limits of her daily activity, she is generally doing okay. No recent episodes of cardiac decompensation. However, she does get short of breath with activity but has been this way for a long time. With regard to atrial fibrillation, apparently she was on anticoagulation but then had head injury from fall extra and had bleeding issues and hence it was stopped. She also used to get nosebleeds as well. At this time, she is not on any anticoagulation. With regard to coronary disease, history of right coronary artery stenting in 2011 but has not had any anginal issues or anything along those lines. Overall, seems to be getting along okay but would likely to switch to us. [facility] Medical History (Updated 02/08/23 @ 14:54 by Tom Jordan MD) Heart failure, unspecified PAF (paroxysmal atrial fibrillation) DMII (diabetes mellitus, type 2) Atherosclerotic cardiovascular disease Surgical History History of ankle surgery Hx of hernia repair S/P HORTENCIA (total abdominal hysterectomy) Hx laparoscopic cholecystectomy Family History Mother Diabetes Father COPD (chronic obstructive pulmonary disease) Social History Housing: Apartment Alcohol intake: never Patient Tobacco Use Status: Former Tobacco user e-Cigarette/Vaping Use: Never Used service: No Current occupational status: retired Cognitive needs: No Hearing needs: No Vision needs: Yes Review of Systems Const Denies chills, Denies daytime sleepiness, Denies fatigue, Denies fever(s), Denies frequent falls, Denies night sweats, Denies snoring, Denies weakness, Denies weight gain and Denies weight loss Eyes Denies loss of vision ENT Denies dizziness and Denies hearing loss Card Denies chest pain, Denies chest pain with activity, Denies syncope, Denies rapid heart rate, Denies edema, Denies claudication, Denies leg edema, Denies lightheadedness, Denies palpitations, Denies dyspnea, Denies dyspnea on exertion and Denies orthopnea Resp Denies cough, Denies excessive phlegm production, Denies dyspnea, Denies dyspnea on exertion, Denies snoring and Denies wheezing GI Denies abdominal pain, Denies hematochezia, Denies change in bowel habits, Denies change in stool character, Denies heartburn, Denies nausea and Denies vomiting Denies hematuria, Denies urinary frequency and Denies dysuria Musc Denies arthralgias, Denies muscle weakness, Denies numbness and Denies tingling Skin/Breast Denies nail changes and Denies rash Neuro Denies Abnormal speech present, Denies dizziness, Denies syncope, Denies frequent falls, Denies loss of vision, Denies memory loss, Denies numbness, Denies tingling and Denies weakness Psych Denies depression and Denies memory loss Endo Denies fatigue and Denies palpitations Aller/Immun Denies wheezing Physical Exam Vital Signs: Last Vital Signs Pulse 67 02/08/23 14:11 BP 128/54 L 02/08/23 14:11 BMI result Body Mass Index 26.6 Const General: comfortable and no acute distress Orientation/consciousness: patient oriented x3 HEENT Other: Unremarkable Head: Yes normal to inspection Neck Neck: Yes normal visual inspection Chest Chest palpation & inspection: normal inspection of the chest Resp Auscultation: clear to auscultation bilaterally Cardio Palpation: normal PMI Heart sounds: S1 normal heart sound present, S2 normal heart sound present, no gallops, no murmurs and no rubs GI Palpation (GI): Soft to palpation Back/Spine/Pelvis Other: unremarkable Skin General skin exam: no rashes or lesions noted Neuro General: patient oriented x3 Speech: No Abnormal speech present Extrem General: Yes normal to inspection Psych Mental Status: mental status grossly normal Office Procedures EKG Details: EKG with sinus rhythm at 67/Min; no significant ST-T changes and otherwise [place]remarkable[place] [id number], Complete Assessment & Plan Assessment & Plan (1) PAF (paroxysmal atrial fibrillation): Code(s): I48.0 - Paroxysmal atrial fibrillation Plan: By EKG, in sinus rhythm. On beta-blockers. No changes. Per history, head injury/bleeding in the past and hence not on any anticoagulation. Will need to review records. (2) Atherosclerotic cardiovascular disease: Code(s): I25.10 - Atherosclerotic heart disease of [place] coronary artery without angina pectoris Plan: Cardiac catheterization 2011 with right coronary artery stenting. Clinically, she does not have any angina. In that study, she had some disease in circumflex and diagonal system but nothing significant. On aspirin, statins. (3) Heart failure, unspecified: Code(s): I50.9 - Heart failure, unspecified Qualifiers: Heart failure chronicity: unspecified Heart failure type: unspecified Qualified Code(s): I50.9 - Heart failure, unspecified Plan: Listed have congestive heart failure but unknown cardiac function. Will need echocardiogram to assess this further. Clinically, she does not have any overt volume overload. Not on any diuretics either. Shortness of breath could also be from COPD. Plan Will request records from [facility]. Orders: Orders CA echo transthoracic complete Today I50.9 - Heart failure, unspecified ECG 3 day holter monitor Today I48.0 - Paroxysmal atrial fibrillation Coding Level of Care Code New Pt Level 4 (04182) Diagnoses PAF (paroxysmal atrial fibrillation) I48.0 Atherosclerotic cardiovascular disease I25.10 Heart failure, unspecified HF chronicity, unspecified heart failure type I50.9 Heart failure chronicity: unspecified Heart failure type: unspecified CPT Codes EKG - CPT: 70016-[id number], Complete ([id number])
[2023-02-08 14:11] VITALS: BP 128/54; PULSE 67; BMI 26.6
== END 2023-02-08 15:08 | disposition home or self-care (01) ==
PROVIDERS: PCP Physician Assistant; Visit Provider Internal Medicine
DX: I48.0 Paroxysmal atrial fibrillation (principal); I25.10 Atherosclerotic heart disease of native coronary artery without angina pectoris; I50.9 Heart failure, unspecified
CPT/HCPCS: 93010; 99204

== ENCOUNTER → 2023-02-08 14:06 | Outpatient (BNVA) | payer MEDICARE, SELFPAY | PROVIDERS: PCP Physician Assistant; Visit Provider Internal Medicine | DX: I48.0 Paroxysmal atrial fibrillation (principal); I25.10 Atherosclerotic heart disease of native coronary artery without angina pectoris; I50.9 Heart failure, unspecified | CPT/HCPCS: 93005 ==

== ENCOUNTER 2023-02-16 09:12 | Outpatient (AMB) | payer MEDICARE, SELFPAY ==
--- NOTE | 2023-02-16 09:17 | A.OFFVIS_ITS ---
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 Patient is accompanied by her daughter Jennifer. Pt states she has tremors in her arms mainly. Pt states she hasn't had any recent falls. Pt denies any numbness or tingling. Accompanied by: Daughter Allergies Sulfa (Sulfonamide Antibiotics) Allergy (Mild, Verified 02/16/23 09:21) HIVES HPI HPI Comments History of Present Illness Details 82y/o female with tremors comes for furt her management. She is accompanied by her daughter who helps with history . she was born premature - weighed 2 lbs . she has had tremors in her hands and her whole body all her life. she also has some voice tremors. she has been managed with primidone and has been doing well. she still does all her cooking If she feels her tremors are worse she sits and relaxes and that helps her. she also has gait issues, some balance issues . she uses a walker and no recent falls. [facility] Medical History Heart failure, unspecified PAF (paroxysmal atrial fibrillation) DMII (diabetes mellitus, type 2) Atherosclerotic cardiovascular disease Surgical History History of ankle surgery Hx of hernia repair S/P HORTENCIA (total abdominal hysterectomy) Hx laparoscopic cholecystectomy Family History Mother Diabetes Father COPD (chronic obstructive pulmonary disease) Social History Housing: Apartment Alcohol intake: never Patient Tobacco Use Status: Former Tobacco user e-Cigarette/Vaping Use: Never Used service: No Current occupational status: retired Cognitive needs: No Hearing needs: No Vision needs: Yes Review of Systems Const Denies headache(s) Eyes Denies loss of vision ENT Denies vertigo, Denies dizziness, Denies headache(s) and Denies sore throat Card Denies chest pain, Denies leg edema and Denies lightheadedness Resp Denies cough, Denies hemoptysis and Denies wheezing GI Denies abdominal pain, Denies melena, Denies constipation, Denies diarrhea and Denies vomiting Denies urinary frequency, Denies dysuria and Denies urinary urgency Musc Denies arthralgias, Denies joint swelling, Denies numbness and Denies tingling Neuro Denies Abnormal speech present, Denies behavioral changes, Denies vertigo, Denies dizziness, Denies headache(s), Denies loss of vision, Denies memory loss, Denies numbness and Denies tingling Psych Denies anxiety, Denies behavioral changes, Denies depression, Denies memory loss and Denies panic attacks Paul/Lymph Denies easy bleeding and Denies easy bruising Aller/Immun Denies wheezing Physical Exam Vital Signs: Last Vital Signs Pulse 88 02/16/23 09:19 BP 140/60 H 02/16/23 09:19 Pulse Ox 96 02/16/23 09:19 Oxygen Delivery Method Room Air 02/16/23 09:19 BMI result Body Mass Index 27.7 Const General: cooperative and comfortable Nutritional Appearance: average body habitus Orientation/consciousness: patient oriented x3 Eyes Pupils: Equal, round and reactive pupils present Neuro Other: Bilateral Ptosis Mild voice tremors No tremors in UE Normal tone Gait- off balance, small steps Better with walker General: patient oriented x3, tone normal and moves all extremities Cranial nerves: Yes Facial sensation intact/muscles of mastication intact, Yes Equal, round and reactive pupils present, Yes Bilaterally intact EOM present, Yes Nystagmus not present and Yes Normal facial strength present Cognition (Neuro): normal cognition Speech: No Abnormal speech present Motor exam (neuro): 5/5 motor strength present throughout and no tremor noted Deep tendon reflexes (DTR's): Right triceps reflex intensity grade: 1+, Left triceps reflex intensity grade: 1+, Rt Biceps (C5, C6): 1+, Left biceps reflex intensity grade: 1+, Right brachioradialis reflex intensity grade: 1+, Left brachioradialis reflex intensity grade: 1+, Right patellar reflex intensity grade: 1+ and Left patellar reflex intensity grade: 1+ Coordination: [id number] test normal Psych Appearance: grossly normal Assessment & Plan Assessment & Plan (1) Tremor: Comment: benign essential Code(s): R25.1 - Tremor, unspecified Plan Patient is doing well on primidone 50mg tid Suggested PT -patient declines Coding Level of Care Code New Pt Level 3 (58701) Diagnoses Tremor R25.1
[2023-02-16 09:19] VITALS: BP 140/60; PULSE 88; O2SAT 96; BMI 27.7
== END 2023-02-16 10:24 | disposition home or self-care (01) ==
PROVIDERS: Referring Provider Internal Medicine; Visit Provider Psychiatry & Neurology Neurology
DX: R25.1 Tremor, unspecified (principal)
CPT/HCPCS: 99203

== ENCOUNTER → 2023-02-16 09:12 | Outpatient (BNVA) | payer MEDICARE, SELFPAY | PROVIDERS: Referring Provider Internal Medicine; Visit Provider Psychiatry & Neurology Neurology ==

== ENCOUNTER → 2023-03-08 13:45 | Outpatient (REF) | payer MEDICARE, SELFPAY ==
--- NOTE | 2023-03-08 13:49 | HM_ITS ---
Conclusion: 1. Patient was monitored for total period of 1 day and 12 hours 2. Baseline was normal sinus with average heart rate of 73 beats per minute 3. Frequent PACs noted with total burden of 1.1% 4. 2 short episodes of substernal with tachycardia noted longest lasting 8 beats and the fastest 140 beats per minute 5. No significant pauses noted 6. Patient marked the counter twice correlating with sinus rhythm and at the at the time PVC MTDD
--- NOTE | 2023-03-08 13:49 | CA_ITS ---
Transthoracic Echocardiogram Patient (Last, First, Middle): Alejandra Bellamy M Gender: Female Date of : 1940 Age: 82 Procedure Date: 03/08/2023 Procedure Type: Transthoracic Echocardiogram Location: OP Height: 154.94 cm Weight: 66.68 kg BSA: 1.66 m2 Heart Rate: bpm BP: 148 / 68 mmHg Dynamics Ax Developer: TO Referring MD: Tom Jordan MD Symptoms: I50.9 - Heart failure, unspecified Study Quality: Fair ECG Rhythm: Sinus Conclusions: - The left ventricular systolic function is normal. The calculated ejection fraction is 68% by biplane method. - There is moderate septal and moderate basal asymmetric hypertrophy. - There is mild calcification of the aortic valve. - There is mild mitral annular calcification. - No obvious valvular pathology seen on this study. Findings Left Ventricle Normal left ventricular cavity size. The left ventricular systolic function is normal. The calculated ejection fraction is 68% by biplane method. There is no evidence of regional wall motion abnormalities. Evidence suggests grade I (mild) diastolic dysfunction. There is moderate septal and moderate basal asymmetric hypertrophy. Right Ventricle Normal right ventricular cavity size and systolic function. Atria Both atria are normal in size. Aortic Valve There is a normal trileaflet aortic valve. There is mild calcification of the aortic valve. There is no aortic valve stenosis. There is no aortic valve regurgitation. Mitral Valve There is mild anterior mitral leaflet thickening. There is mild mitral annular calcification. There is trace mitral valve regurgitation. There is no mitral valve stenosis. Pulmonic Valve The pulmonic valve is likely normal. Tricuspid Valve There is no tricuspid valve regurgitation. Tricuspid regurgitation envelope is inadequate for calculation of right ventricular systolic pressure. Great Vessels The asc aorta is normal in size. Small plaque is seen in the sino tubular ridge. Venous The inferior vena cava is normal in size and collapses greater than 50% with inspiration. Pericardium/Pleural There is no evidence of pericardial effusion. Prior Study Comparison No significant change compared to prior study dated: 04/28/2017. Recommendations, Care & Conclusions No obvious valvular pathology seen on this study. Measurements 2D Linear Measurements IVSd: 1.60 0.6-0.9/0.6-1.0 cm LVIDd: 3.70 3.9-5.3/4.2-5.9 cm LVIDd Index: 2.23 2.4-3.2/2.2-3.1 cm/m2 LVIDs: 2.00 2.0-3.6 cm LVPWd: 0.90 0.7-1.1 cm LA Diam: 3.40 2.7-3.8/3.0-4.0 cm LAIDs Index: 2.05 1.5-2.3 cm/m2 LV Mass: 195.18 67-162/88-224 g LV Mass Index: 117.58 43-95/49-115 g/m2 LVOT Diam: 1.80 3.0+(-)1.3 cm 2D Systolic Function EF 4C: 69.50 >55% EF 2C: 65.50 >55% EF BiP: 67.80 >55% Mitral Valve MV VTI: 0.39 MV Pk Anjel: 1.28 MV Mn Anjel: 0.78 MV Pk Grad: 7.00 MV Mn Grad: 3.00 MV Pk E: 1.05 MV PK A: 1.15 MV Decel Time: 279.00 E/A: 0.90 E'Lateral: 6.20 E'Medial: 5.55 E/E' Med: 18.90 E/E' Lat: 16.90 PHT: 82.00 MVA PHT: 2.68 MVA Continuity: 1.58 Decel Spalding: 3.78 Aortic Valve AoV Pk Anjel: 1.29 AoV Mn Anjel: 1.05 AoV VTI: 0.33 AoV Pk Grad: 7.00 Aov Mn Grad: 5.00 ISABELLA Cont.VTI: 1.89 LVOT LVOT Pk Anjel: 0.94 LVOT Mn Anjel: 0.75 LVOT VTI: 0.24 LVOT Pk Grad: 4.00 LVOT Mn Grad: 2.00 LVOT Diam: 1.80 LVOT Area: 2.54 Diastolic Function MV Pk E: 1.05 MV Pk A: 1.15 E/A: 0.90 E'Medial: 5.55 E/E' Med: 18.90 E' Laterial: 6.20 E/E' Lat: 16.90 Right Ventricle TAPSE (mm): 21.70 TVS' Anjel: 12.30 Tricuspid Valve RA Press: 3.00 Great Vessels Aorta Sinus of Valsalva: 2.90 2.0-3.[address] Ridge: 2.00 1.7-3.4 cm Ao Asc: 3.30 2.1-3.4 cm Updated in Other Vendor System with Status of Final Tom Jordan MD electronically signed on 03/10/2023 12:53:42 PM with status of Final
== END ==
LOC: HO.CARD 13:45
PROVIDERS: PCP Physician Assistant; Visit Provider Internal Medicine
DX: I48.0 Paroxysmal atrial fibrillation (principal); I50.9 Heart failure, unspecified
CPT/HCPCS: 93242; 93306

== ENCOUNTER → 2023-03-08 13:49 | Outpatient (BNV) | payer MEDICARE, SELFPAY | PROVIDERS: PCP Physician Assistant; Visit Provider Internal Medicine | DX: I49.1 Atrial premature depolarization (principal) | CPT/HCPCS: 93227; 93306 ==

== ENCOUNTER 2023-04-13 13:40 | Outpatient (AMB) | payer MEDICARE, SELFPAY ==
[2023-04-13 13:54] VITALS: BP 124/50; PULSE 81; BMI 27.8
--- NOTE | 2023-04-13 13:54 | HO.NEPHOV_ITS ---
HPI HPI Comments History of Present Illness Details 82-year-old female with a type 2 diabete s over 40 years, hypertension, CAD, CHF among multiple other medical issues was seen in consultation for CKD. She is on insulin has been able to manage her blood sugars fairly well. Her last A1c was 7.9. She had CAD & undergone angioplasty and stenting of her coronaries. She has A Fib but not on anticoagulation due to H/O intracranial bleed. She has history of Congestive heart failure but not on Farxiga. She has H/O right renal mass and has been followed up by Urologist for enlarging right renal mass. She is hypertensive and her BP is well controlled. She is not on A CEI/ARB. She does not take NSAID's regularly. She has no urinary symptoms, new bone or back pain, edema, hematuria. She denies nausea, vomiting, diarrhea, PND, orthopnea or any other systemic complaints. [facility] Medical History Heart failure, unspecified PAF (paroxysmal atrial fibrillation) DMII (diabetes mellitus, type 2) Atherosclerotic cardiovascular disease Surgical History History of ankle surgery Hx of hernia repair S/P HORTENCIA (total abdominal hysterectomy) Hx laparoscopic cholecystectomy Family History Mother Diabetes Father COPD (chronic obstructive pulmonary disease) Housing: Apartment Alcohol intake: never Patient Tobacco Use Status: Former Tobacco user e-Cigarette/Vaping Use: Never Used service: No Current occupational status: retired Cognitive needs: No Hearing needs: No Vision needs: Yes Vital Signs 04/13/23 13:54 Height 5 ft 1 in Weight 147 lb 6 oz BMI 27.8 BP 124/50 L Blood Pressure Location Rt brachial Position Sitting Pulse 81 Pulse Source Pulse Oximeter Physical Exam Vital Signs: Last Vital Signs Pulse 81 04/13/23 13:54 BP 124/50 L 04/13/23 13:54 BMI result Body Mass Index 27.8 Const General: comfortable and no acute distress Orientation/consciousness: patient oriented x3 HEENT Head: Yes normocephalic Mouth: Normal oral and palatal mucosa present Eyes EOM: EOMs intact bilaterally Neck Neck: Yes supple Resp Auscultation: clear to auscultation bilaterally Cardio Jugular venous distension: no JVD Rate: regular rate GI Palpation (GI): Soft to palpation Auscultation: normal bowel sounds General: Yes no CVA tenderness Back/Spine/Pelvis Back: no CVA tenderness Skin General skin exam: no rashes or lesions noted Neuro General: patient oriented x3 and moves all extremities Extrem General: Yes no pedal edema Assessment & Plan Assessment & Plan (1) CKD (chronic kidney disease) stage 3, GFR 30-59 ml/min: Code(s): N18.30 - Chronic kidney disease, stage 3 unspecified Qualifiers: Chronic kidney disease stage 3 subtype: stage 3a (GFR 45-59) Qualified Code(s): N18.31 - Chronic kidney disease, stage 3a (2) HTN (hypertension): Code(s): I10 - Essential (primary) hypertension Qualifiers: Hypertension type: primary hypertension Qualified Code(s): I10 - Essential (primary) hypertension Plan Alejandra has 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 She has diabetes mellitus over 40 years. Her A1c is still over 7. She is proteinuric. She has no hypoglycemia. Her blood pressure is at goal. She has history of congestive heart failure. She is not on any ANI inhibitor or ARB. She is not clear why she has not been on those medications. We should start her on Farxiga/Jardiance. She should keep her blood sugar under better control. She should be on a low-sodium diet. She should avoid nonsteroidal anti-inflammatory medications. She has a renal mass which needs very close follow-up with her urologist. Follow-up laboratory studies were ordered. All her and her daughter's questions were answered. Time spent retrieving data, patient encounter and documentation 61 minutes. Orders: Orders Electrolytes 04/13/23 N18.30 - Chronic kidney disease, stage 3 unspecified Blood Urea Nitrogen 04/13/23 N18.30 - Chronic kidney disease, stage 3 unspecified Creatinine 04/13/23 N18.30 - Chronic kidney disease, stage 3 unspecified Protein Creatinine Ratio, Ur 04/13/23 N18.30 - Chronic kidney disease, stage 3 unspecified Calcium 04/13/23 N18.30 - Chronic kidney disease, stage 3 unspecified Immunofixation Pnl, Serum 04/13/23 N18.30 - Chronic kidney disease, stage 3 unspecified Coding Level of Care Code New Pt Level 4 (31303) Diagnoses Stage 3a chronic kidney disease N18.31 Chronic kidney disease stage 3 subtype: stage 3a (GFR 45-59) Primary hypertension I10 Hypertension type: primary hypertension
== END 2023-04-13 14:46 | disposition home or self-care (01) ==
PROVIDERS: PCP Physician Assistant; Visit Provider Internal Medicine Nephrology
DX: E11.22 Type 2 diabetes mellitus with diabetic chronic kidney disease (principal); N18.31 Chronic kidney disease, stage 3a; I12.9 Hypertensive chronic kidney disease with stage 1 through stage 4 chronic kidney disease, or unspecified chronic kidney disease; N28.89 Other specified disorders of kidney and ureter; R80.8 Other proteinuria
CPT/HCPCS: 99205

== ENCOUNTER → 2023-04-13 13:40 | Outpatient (BNVA) | payer MEDICARE, SELFPAY | PROVIDERS: PCP Physician Assistant; Visit Provider Internal Medicine Nephrology | DX: N18.31 Chronic kidney disease, stage 3a (principal); E11.65 Type 2 diabetes mellitus with hyperglycemia; Z79.4 Long term (current) use of insulin | CPT/HCPCS: 99202 ==

== ENCOUNTER 2023-04-25 13:12 | Outpatient (AMB) | payer MEDICARE, SELFPAY ==
--- NOTE | 2023-04-25 13:15 | MHC.OFFVIS ---
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 Operator Required: No Accompanied by: Daughter Allergies Sulfa (Sulfonamide Antibiotics) Allergy (Mild, Verified 04/25/23 13:19) HIVES Medication List - Last Reconciled 04/25/23 by Tom Jordan MD ascorbic acid (vitamin C) ER 500 mg PO DAILY aspirin 81 mg PO DAILY atorvastatin 80 mg PO BEDTIME 90 days calcium carbonate (Calcium) 600 mg PO DAILY cetirizine 10 mg PO DAILY PRN cholecalciferol (vitamin D3) 10 mcg PO DAILY citalopram 20 mg PO DAILY 90 days ferrous sulfate 325 mg PO DAILY insulin aspart U-100 (Novolog U-100 Insulin aspart) 8 units subcut TID insulin glargine (Basaglar KwikPen U-100 Insulin) 17 units subcut BEDTIME insulin syringe-needle U-100 (BD Insulin Syringe Ultra-Fine) As directed isosorbide mononitrate ER 60 mg PO DAILY 90 days metoprolol succinate ER 50 mg PO DAILY nitroglycerin 0.4 mg sublingual Q5M PRN 4 days pantoprazole 20 mg PO QAM 90 days pen needle, diabetic (BD Ultra-Fine Short Pen Needle) As directed primidone 50 mg PO TID 90 days HPI HPI Comments History of Present Illness Details Alejandra returns for follow-up. Recently seen in consultation. She was going to [facility] but would like to switch to us for convenience. Listed to have paroxysmal atrial fibrillation, coronary disease as well as congestive heart failure. Within limits of her daily activity, she is generally doing okay. No recent episodes of cardiac decompensation. However, she does get short of breath with activity but has been this way for a long time. With regard to atrial fibrillation, apparently she was on anticoagulation but then had head injury from fall extra and had bleeding issues and hence it was stopped. She also used to get nosebleeds as well. At this time, she is not on any anticoagulation. With regard to coronary disease, history of right coronary artery stenting in 2011 but has not had any anginal issues or anything along those lines. Overall, seems to be getting along okay but would likely to switch to us. Daughter is also here for the appointment. [facility] Medical History Heart failure, unspecified PAF (paroxysmal atrial fibrillation) DMII (diabetes mellitus, type 2) Atherosclerotic cardiovascular disease Surgical History History of ankle surgery Hx of hernia repair S/P HORTENCIA (total abdominal hysterectomy) Hx laparoscopic cholecystectomy Family History Mother Diabetes Father COPD (chronic obstructive pulmonary disease) Social History Housing: Apartment Alcohol intake: never Patient Tobacco Use Status: Former Tobacco user e-Cigarette/Vaping Use: Never Used service: No Current occupational status: retired Cognitive needs: No Hearing needs: No Vision needs: Yes Review of Systems Const Denies weakness ENT Denies dizziness Card Denies chest pain, Denies chest pain with activity, Denies syncope, Denies rapid heart rate, Denies pedal edema, Denies edema, Denies leg edema, Denies lightheadedness, Denies palpitations, Denies dyspnea, Denies dyspnea on exertion and Denies orthopnea Resp Denies cough, Denies dyspnea and Denies dyspnea on exertion GI Denies hematochezia and Denies change in stool character Musc Denies abnormal gait, Denies muscle cramps, Denies muscle weakness, Denies numbness, Denies radiating pain into limb and Denies tingling Neuro Denies abnormal gait, Denies dizziness, Denies syncope, Denies numbness, Denies tingling and Denies weakness Endo Denies palpitations Physical Exam Vital Signs: Last Vital Signs Pulse 80 04/25/23 13:19 BP 130/54 L 04/25/23 13:19 BMI result Body Mass Index 27.6 Const General: comfortable and no acute distress Orientation/consciousness: patient oriented x3 HEENT Other: Unremarkable Head: Yes normal to inspection Neck Neck: Yes normal visual inspection Chest Chest palpation & inspection: normal inspection of the chest Resp Auscultation: clear to auscultation bilaterally Cardio Palpation: normal PMI Heart sounds: S1 normal heart sound present, S2 normal heart sound present, no gallops, no murmurs and no rubs GI Palpation (GI): Soft to palpation Back/Spine/Pelvis Other: unremarkable Skin General skin exam: no rashes or lesions noted Neuro General: patient oriented x3 Extrem General: Yes normal to inspection Psych Mental Status: mental status grossly normal Assessment & Plan Assessment & Plan (1) PAF (paroxysmal atrial fibrillation): Code(s): I48.0 - Paroxysmal atrial fibrillation Plan: By EKG, in sinus rhythm. Recent Holter shows no clear atrial fibrillation. On beta-blockers. No changes. Per history, head injury/bleeding in the past and hence not on any anticoagulation. We still do not have last cardiac note from [facility] and hence will request the same. (2) Atherosclerotic cardiovascular disease: Code(s): I25.10 - Atherosclerotic heart disease of [place] coronary artery without angina pectoris Plan: Cardiac catheterization 2011 with right coronary artery stenting. Clinically, she does not have any angina. In that study, she had some disease in circumflex and diagonal system but nothing significant. On aspirin, statins. (3) Heart failure, unspecified: Code(s): I50.9 - Heart failure, unspecified Qualifiers: Heart failure chronicity: unspecified Heart failure type: unspecified Qualified Code(s): I50.9 - Heart failure, unspecified Plan: Heart failure statin her diagnosis. In the recent echocardiogram, LVEF 68% with mild diastolic dysfunction. No obvious evidence of congestive heart failure on exam. Not on regular diuretics. Shortness of breath could also be from COPD. (4) Carotid artery stenosis: Code(s): I65.29 - Occlusion and stenosis of unspecified carotid artery Plan: History of carotid artery stenosis but they do not want any specific workup. They would like leave it as is. Plan Will again request records from [facility]. Discussed with daughter who came for appointment. Coding Level of Care Code Est Pt Level 4 (38986) Diagnoses PAF (paroxysmal atrial fibrillation) I48.0 Atherosclerotic cardiovascular disease I25.10 Heart failure, unspecified HF chronicity, unspecified heart failure type I50.9 Heart failure chronicity: unspecified Heart failure type: unspecified Carotid artery stenosis I65.29
[2023-04-25 13:19] VITALS: BP 130/54; PULSE 80; BMI 27.6
== END 2023-04-25 13:39 | disposition home or self-care (01) ==
PROVIDERS: PCP Physician Assistant; Visit Provider Internal Medicine
DX: I48.0 Paroxysmal atrial fibrillation (principal); I25.10 Atherosclerotic heart disease of native coronary artery without angina pectoris; I50.9 Heart failure, unspecified; I65.29 Occlusion and stenosis of unspecified carotid artery
CPT/HCPCS: 99214

== ENCOUNTER → 2023-04-25 13:12 | Outpatient (BNVA) | payer MEDICARE, SELFPAY | PROVIDERS: PCP Physician Assistant; Visit Provider Internal Medicine | DX: I48.0 Paroxysmal atrial fibrillation (principal); I25.10 Atherosclerotic heart disease of native coronary artery without angina pectoris; I11.0 Hypertensive heart disease with heart failure; I50.9 Heart failure, unspecified; I65.29 Occlusion and stenosis of unspecified carotid artery | CPT/HCPCS: 99212 ==

== ENCOUNTER 2023-05-05 11:04 | Outpatient (AMB) | payer MEDICARE, SELFPAY ==
--- NOTE | 2023-05-05 11:20 | MHC.PC.OV ---
Vital Signs 05/05/23 11:21 Height 5 ft 1 in Weight 147 lb 4.301 oz BMI 27.8 BP 130/50 L Blood Pressure Location Rt brachial Position Sitting Respiration 16 Pulse 60 Pulse Source Palpation Intake Visit Reasons: f/u DMII Intake Note: Pt is here for F/U DM, Pt requesting Dermatology referral due to skin rash on back of the neck and skin sensitivity. Steel Die Printer Required: No Accompanied by: Daughter Allergies Sulfa (Sulfonamide Antibiotics) Allergy (Mild, Verified 05/05/23 11:38) HIVES Medication List - Last Reconciled 05/05/23 by Todd Espinal PA-C ascorbic acid (vitamin C) ER 500 mg PO DAILY aspirin 81 mg PO DAILY atorvastatin 80 mg PO BEDTIME 90 days calcium carbonate (Calcium) 600 mg PO DAILY cetirizine 10 mg PO DAILY PRN cholecalciferol (vitamin D3) 10 mcg PO DAILY citalopram 20 mg PO DAILY 90 days ferrous sulfate 325 mg PO DAILY insulin aspart U-100 (Novolog U-100 Insulin aspart) 8 units subcut TID insulin glargine (Basaglar KwikPen U-100 Insulin) 17 units subcut BEDTIME insulin syringe-needle U-100 (BD Insulin Syringe Ultra-Fine) As directed isosorbide mononitrate ER 60 mg PO DAILY 90 days metoprolol succinate ER 50 mg PO DAILY nitroglycerin 0.4 mg sublingual Q5M PRN 4 days pantoprazole 20 mg PO QAM 90 days pen needle, diabetic (BD Ultra-Fine Short Pen Needle) As directed primidone 50 mg PO TID 90 days Tobacco use date assessed: 12/30/22 Fall risk assessment: No Falls in past year Last assessed Fall Risk: 05/05/23 Dental Screening Dental Screen Date: 05/05/23 Did you have a dental visit in the last 12 months?: No Did you have a dental problem in the last 6 months where you did not have access to dental care?: No Was dental information given to patient?: Patient declined HPI f/u DMII HPI Details Patient is an 83-year-old female here today for new patient visit. Patient has a past medical history significant for type 2 diabetes, hypertension, depression, AFIB, CAD( stent placement), COPD, CHF, GERD. Concern--> reports over last several years having an itchy irritated scalp. She does have lesions over her scalp in upper neck and in her ear canals. Signs symptoms are concerning for psoriasis or eczema. Will refer to dermatology for evaluation. Will start topical steroid treatment to help with the discomfort and itch. .. Type 2 diabetes: Patient continues on insulin therapy and has been able to manage her blood sugars fairly well. Today's A1c is 7.1 from 7.9. Her diet has been much better as she is getting Meals on wheels .. AFIB: Not on anticoagulation due to a severe head bleed the past, continues on aspirin daily. Followed by pinking machine operator in [place] like to transfer care to [facility]. Currently under rate control with metoprolol. She also has a history of coronary artery disease and has a stent placed. Continues on high potency statin and aspirin. Will check her fasting lipid panel to ensure appropriate LDL below 70. .. Congestive heart failure : Has now follow-up with [facility]. Has a chronic history of Congestive heart failure though at this time no need for diuretics. Seems euvolemic on physical exam today. .. Right renal mass: Reviewed previous PCP and Nephrology records--> Was followed by mosaicist [place] for right renal mass. She was to undergo MRI with contrast as recent imaging showing enlarging right renal mass .. Chronic kidney disease stage III: Now followed by Nephrology. Recommendations have been made to consider farxiga or Jardiance [facility] Medical History Heart failure, unspecified PAF (paroxysmal atrial fibrillation) DMII (diabetes mellitus, type 2) Atherosclerotic cardiovascular disease Surgical History History of ankle surgery Hx of hernia repair S/P HORTENCIA (total abdominal hysterectomy) Hx laparoscopic cholecystectomy Family History Mother Diabetes Father COPD (chronic obstructive pulmonary disease) Social History Housing: Apartment Alcohol intake: never Patient Tobacco Use Status: Former Tobacco user e-Cigarette/Vaping Use: Never Used service: No Current occupational status: retired Cognitive needs: No Hearing needs: No Vision needs: Yes Questionnaire Thrive Questionnaire Date Thrive assessed: 12/30/22 SAI-7 AMB Questionnaire SAI-7 Date SAI - 7 assessed: 12/30/22 Source: Developed by Drs. Emigdio Webber, Cathy Will, Khris Bernal and colleagues, with an educational belle from [employer]. Review of Systems Const Denies headache(s) Eyes Denies loss of vision ENT Denies vertigo, Denies dizziness, Denies headache(s) and Denies sore throat Card Denies chest pain, Denies leg edema and Denies lightheadedness Resp Denies cough, Denies hemoptysis and Denies wheezing GI Denies abdominal pain, Denies melena, Denies constipation, Denies diarrhea and Denies vomiting Denies urinary frequency, Denies dysuria and Denies urinary urgency Musc Denies arthralgias, Denies joint swelling, Denies numbness and Denies tingling Neuro Denies Abnormal speech present, Denies behavioral changes, Denies vertigo, Denies dizziness, Denies headache(s), Denies loss of vision, Denies memory loss, Denies numbness and Denies tingling Psych Denies anxiety, Denies behavioral changes, Denies depression, Denies memory loss and Denies panic attacks Paul/Lymph Denies easy bleeding and Denies easy bruising Aller/Immun Denies wheezing Physical exam (Primary Care) Vital Signs: Last Vital Signs Pulse 60 05/05/23 11:21 Resp 16 05/05/23 11:21 BP 130/50 L 05/05/23 11:21 BMI result Body Mass Index 27.8 Tobacco/Smoking Status: Tobacco use Status Tobacco use date assessed 12/30/22 05/05/23 11:23 Patient Tobacco Use Status Former Tobacco user 05/05/23 11:23 e-Cigarette/Vaping Use Never Used 05/05/23 11:23 Thrive Assessment: Date of Thrive Assessment Date Thrive assessed 12/30/22 05/05/23 11:23 Const General: healthy appearing, no acute distress, alert and awake Nutritional Appearance: well nourished Orientation/consciousness: oriented to person, oriented to place and oriented to time [facility] Head images: 1. DRY PAPULES PUSTULES OVER THE SCALP. Ears: TM's normal bilaterally General nose exam: Normal nasal mucous membranes and turbinates present Eyes Conjunctivae: conjunctivae normal Sclerae: sclerae normal Pupils: Equal, round and reactive pupils present Neck Neck: Yes no lymphadenopathy and Yes no JVD Thyroid: Thyroid normal Carotids: no bruits Resp Effort & Inspection: normal respiratory effort and not tachypneic Auscultation: no crackles, no rales, no rhonchi and no wheezes Cardio Rate: regular rate Rhythm: regular rhythm Heart sounds: no murmurs and normal S1 and S2 GI Palpation (GI): Soft to palpation, nontender, no hepatomegaly and no splenomegaly Auscultation: normal bowel sounds Skin General skin exam: no rashes or lesions noted and dry skin Neuro General: oriented to person, oriented to place and oriented to time Cranial nerves: Yes Equal, round and reactive pupils present Speech: No Abnormal speech present Gait exam (Neuro): Normal gait present Motor exam (neuro): no tremor noted Extrem Right upper extremity: full ROM Left upper extremity: full ROM Right lower extremity: full ROM; no edema Left lower extremity: full ROM; no edema Psych Mental Status: mental status grossly normal Speech and movement: Normal speech and movement present Affect: normal affect Attitude: cooperative Thought process: Normal thought process present Office Procedures Flu Questionnaire Does the patient have a severe egg allergy?: No Does the patient have severe life threatening allergies?: No Does the patient have a fever or illness today?: No Has the patient ever had Guillain-[place] Syndrome?: No Has the patient ever had any past reaction to a flu shot?: No Results AMB Hemoglobin A1c AMB Hemoglobin A1c 7.1 % Last Edit by DAVID Hunt on 05/05/23 11:36 Immunizations flu vacc [id number] 6mos up(PF) 60 mcg(15 mcgx4)/0.5 mL IM syringe Performing Provider: Todd Espinal PA-C [facility] Administered by: DAVID Hunt on 05/05/23 11:38 Dose Route Admin Location Dispensed Lot Number Expiration Date NDC Smoking Pipe Liner 0.5 mL IM Right Deltoid 0.5 mL [id number] 11/20/23 57940-147-46 Context Labs VIS Given Date VIS Provided VIS Publication Date 05/05/23 Single Vaccine 20 Eligibility Eligibility Date Funding Source Not [facility] Eligible 05/05/23 Private Results Reviewed Results Reviewed: Laboratory Last Values Hgb A1c (Clinic) 7.1 % (4.0-6.0) H 05/05/23 11:36 Assessment and Plan Assessment & Plan (1) DMII (diabetes mellitus, type 2): Code(s): E11.9 - Type 2 diabetes mellitus without complications Qualifiers: Diabetes mellitus terminal operations manager insulin use: with fci use Diabetes mellitus complication status: with hyperglycemia Qualified Code(s): E11.65 - Type 2 diabetes mellitus with hyperglycemia; Z79.4 - tank terminal gauger (current) use of insulin Plan: Patient's type 2 diabetes controlled with current insulin regime. Goal A1c is to be below 8.0 due to patient's age and comorbidities. (2) HTN (hypertension): Code(s): I10 - Essential (primary) hypertension Qualifiers: Hypertension type: primary hypertension Qualified Code(s): I10 - Essential (primary) hypertension Plan: Blood pressure acceptable today in office. Will continue her current dose of antihypertensive medication with goal blood pressure be below 140/90 (3) GERD (gastroesophageal reflux disease): Code(s): K21.9 - Gastro-esophageal reflux disease without esophagitis Qualifiers: Esophagitis presence: without esophagitis Qualified Code(s): K21.9 - Gastro-esophageal reflux disease without esophagitis Plan: Continues on PPI therapy with good effect on reducing her GERD symptoms. (4) MDD (major depressive disorder), recurrent episode, moderate: Code(s): F33.1 - Major depressive disorder, recurrent, moderate Plan: Patient continues on SSRI therapy over last several years. She reports she was in a D depression several years ago after her passed. Currently gets support from her family and feels stable from a mental health point of view. (5) Afib: Code(s): I48.91 - Unspecified atrial fibrillation Qualifiers: Atrial fibrillation type: persistent (not longstanding) Qualified Code(s): I48.19 - Other persistent atrial fibrillation Plan: Patient has a chronic history of AFib. Was placed on anticoagulation in the past though had a severe head bleed from a fall. Was taken off anticoagulation and now on daily aspirin therapy. She otherwise denies any chest discomfort palpitations or dizziness. She would like to establish care with a pinking machine operator here in [place] (6) CHF (congestive heart failure), NYHA class III: Code(s): I50.9 - Heart failure, unspecified Qualifiers: Congestive heart failure type: diastolic Congestive heart failure chronicity: chronic Qualified Code(s): I50.32 - Chronic diastolic (congestive) heart failure Plan: Appears euvolemic on physical exam today. No overt signs of Congestive heart failure. (7) Right renal mass: Code(s): N28.89 - Other specified disorders of kidney and ureter Plan: As per HPI patient has a right renal mass that has enlarged the last year. Family reports she had been followed for this renal mass though no further concerns (8) Hypothyroid: Code(s): E03.9 - Hypothyroidism, unspecified Qualifiers: Hypothyroidism type: unspecified Qualified Code(s): E03.9 - Hypothyroidism, unspecified Plan: Patient's most recent TSH stable.. Was followed by endocrinology as well for this. Has not been started on levothyroxine at this time will continue to follow TSH (9) Psoriasis: Code(s): L40.9 - Psoriasis, unspecified Plan: Patient reports a 2 year history of dry itchy scalp, on physical exam does try patches over her scalp back of neck. Also has similar appearance in her ears. Concerns here for psoriasis. Will refer to dermatology for evaluation. Will supply patient with topical steroid solution Orders: Orders AMB Hemoglobin A1c Today E11.9 - Type 2 diabetes mellitus without complications Lipid Panel Today E11.65 - Type 2 diabetes mellitus with hyperglycemia, Z79.4 - tank terminal gauger (current) use of insulin Comprehensive [place]. Panel Fast Today E11.65 - Type 2 diabetes mellitus with hyperglycemia, Z79.4 - [facility] (current) use of insulin Complete Blood Count no Diff Today I48.0 - Paroxysmal atrial fibrillation TSH reflex Free T4 Today E03.9 - Hypothyroidism, unspecified Influenza [id number] Immunization Today Z23 - Encounter for immunization Referrals Dermatology Referral L40.9 - Psoriasis, unspecified Medications: New clobetasol 0.05% 1 appl topical DAILY 30 days 50 mL 1RF L40.9 - Psoriasis, unspecified Coding Level of Care Code Est Pt Level 4 (37312) Diagnoses Type 2 diabetes mellitus with hyperglycemia, with long-term current use of insulin E11.65; Z79.4 Diabetes mellitus terminal operations manager insulin use: with terminal operations manager use Diabetes mellitus complication status: with hyperglycemia Primary hypertension I10 Hypertension type: primary hypertension Gastroesophageal reflux disease without esophagitis K21.9 Esophagitis presence: without esophagitis MDD (major depressive disorder), recurrent episode, moderate F33.1 Persistent atrial fibrillation I48.19 Atrial fibrillation type: persistent (not longstanding) Chronic diastolic congestive heart failure, NYHA class 3 I50.32 Congestive heart failure type: diastolic Congestive heart failure chronicity: chronic Right renal mass N28.89 Hypothyroidism, unspecified type E03.9 Hypothyroidism type: unspecified Psoriasis L40.9
[2023-05-05 11:21] VITALS: BP 130/50; PULSE 60; RESP 16; BMI 27.8
== END 2023-05-05 12:00 | disposition home or self-care (01) ==
PROVIDERS: PCP Physician Assistant; Visit Provider Physician Assistant
DX: Z23 Encounter for immunization (principal); E11.65 Type 2 diabetes mellitus with hyperglycemia; Z79.4 Long term (current) use of insulin; L40.9 Psoriasis, unspecified; I48.19 Other persistent atrial fibrillation; F33.1 Major depressive disorder, recurrent, moderate; E03.9 Hypothyroidism, unspecified
CPT/HCPCS: 83036; 90471; 90686; 99214

== ENCOUNTER 2023-06-01 10:45 | Outpatient (REF) | payer MEDICARE, SELFPAY ==
[2023-06-01 12:15] LABS: Hematocrit 37.7 % (37.0-47.0); Hemoglobin 12.2 g/dl (12.0-16.0); Mean Corpuscular HGB Conc 32.4 g/dl (31.0-35.0); Mean Corpuscular Volume 95.9 fL (80.0-98.0); Mean Platelet Volume 11.8 fL (9.4-12.3); Platelet Count 188 X10*3/uL (160-400); Red Blood Count 3.93 X10*6/uL (4.20-5.50); Red Cell Distribution Width 13.5 % (11.0-16.0); White Blood Count 6.4 X10*3/uL (4.8-10.8)
[2023-06-01 12:53] LABS: Alanine Aminotransferase 12 U/L (0-31); Albumin Level 3.8 g/dL (3.5-5.0); Alkaline Phosphatase 64 U/L (39-117); Anion Gap 13 (12-20); Aspartate Amino Transferase 14 U/L (5-31); Bilirubin Total 0.2 mg/dL (0.0-1.0); Blood Urea Nitrogen 38 mg/dL (9-16); Calcium 9.9 mg/dL (8.4-10.2); Carbon Dioxide 23 mmol/L (22-29); Chloride 109 mmol/L (96-108); Cholesterol 156 mg/dL (<200); Estimated Glomerular Filt Rate 32; Glucose Fasting 141 mg/dL (60-99); HDL Cholesterol 44 mg/dL (>40); LDL Cholesterol Calculated 90 mg/dL (<100); Potassium 4.1 mmol/L (3.3-5.1); Sodium 141 mmol/L (135-145); Total Protein 7.1 g/dL (6.5-8.0); Triglycerides 110 mg/dL (<150)
[2023-06-01 13:11] LABS: TSH reflex Free T4 2.72 uIU/mL (0.32-4.0)
== END 2023-06-01 10:46 | disposition home or self-care (01) ==
LOC: HO.LAB 10:45
PROVIDERS: PCP Physician Assistant; Visit Provider Internal Medicine Nephrology
DX: I48.0 Paroxysmal atrial fibrillation (principal); E11.65 Type 2 diabetes mellitus with hyperglycemia; E03.9 Hypothyroidism, unspecified; Z79.4 Long term (current) use of insulin
CPT/HCPCS: 36415; 80053; 80061; 84443; 85027

== ENCOUNTER 2023-06-15 13:34 | Outpatient (AMB) | payer MEDICARE, SELFPAY ==
--- NOTE | 2023-06-15 13:58 | HO.NEPHOV_ITS ---
HPI HPI Comments History of Present Illness Details 82-year-old female with a type 2 diabete s over 40 years, hypertension, CAD, CHF among multiple other medical issues was seen in consultation for CKD. She is on insulin & has been able to manage her blood sugars fairly well. Her last A1c was 7.9. She had CAD & undergone angioplasty and stenting of her coronaries. She has A Fib but not on anticoagulation due to H/O intracranial bleed. She has history of Congestive heart failure but not on Farxiga. She claims to have history of recurrent UTIs. She has H/O right renal mass and has been followed up by Urologist for enlarging right renal mass. She is hypertensi ve and her BP is well controlled. She is not on ACEI/ARB. She does not take NSAID's regularly. She has no urinary symptoms, new bone or back pain, edema, hematuria. She said she has been having blood coming of urethra even though she is not very clear whether it was vaginal bleed. Her daughter was there during this encounter. Patient said this issue has been going on for a long time which has never been brought up were discussed with her family or physicians. She denies nausea, vomiting, diarrhea, PND, orthopnea or any other systemic complaints PFSH Medical History Heart failure, unspecified PAF (paroxysmal atrial fibrillation) DMII (diabetes mellitus, type 2) Atherosclerotic cardiovascular disease Surgical History History of ankle surgery Hx of hernia repair S/P HORTENCIA (total abdominal hysterectomy) Hx laparoscopic cholecystectomy Family History Mother Diabetes Father COPD (chronic obstructive pulmonary disease) Social History Housing: Apartment Alcohol intake: never Patient Tobacco Use Status: Former Tobacco user e-Cigarette/Vaping Use: Never Used service: No Current occupational status: retired Cognitive needs: No Hearing needs: No Vision needs: Yes Vital Signs 06/15/23 14:00 Height 5 ft 1 in Weight 148 lb 2 oz BMI 28.0 BP 140/60 H Blood Pressure Location Lt brachial Position Sitting Pulse 90 Pulse Source Pulse Oximeter Pulse Oximetry (%) 96 Oxygen Delivery Method Room Air Physical Exam Vital Signs: Last Vital Signs Pulse 90 06/15/23 14:00 BP 140/60 H 06/15/23 14:00 Pulse Ox 96 06/15/23 14:00 Oxygen Delivery Method Room Air 06/15/23 14:00 BMI result Body Mass Index 28.0 Const General: comfortable and no acute distress Orientation/consciousness: patient oriented x3 HEENT Head: Yes normocephalic Mouth: Normal oral and palatal mucosa present Eyes EOM: EOMs intact bilaterally Neck Neck: Yes supple Resp Auscultation: clear to auscultation bilaterally Cardio Jugular venous distension: no JVD Rate: regular rate GI Palpation (GI): Soft to palpation Auscultation: normal bowel sounds General: Yes no CVA tenderness Back/Spine/Pelvis Back: no CVA tenderness Skin General skin exam: no rashes or lesions noted Neuro General: patient oriented x3 and moves all extremities Extrem General: Yes no pedal edema Assessment & Plan Assessment & Plan (1) CKD (chronic kidney disease) stage 3, GFR 30-59 ml/min: Code(s): N18.30 - Chronic kidney disease, stage 3 unspecified Qualifiers: Chronic kidney disease stage 3 subtype: stage 3a (GFR 45-59) Qualified Code(s): N18.31 - Chronic kidney disease, stage 3a (2) Hematuria: Code(s): R31.9 - Hematuria, unspecified Qualifiers: Hematuria type: gross Qualified Code(s): R31.0 - Gross hematuria Plan Alejandra has 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 She has diabetes mellitus over 40 years. Her A1c is still over 7. She is proteinuric. She has no hypoglycemia. Her blood pressure is at goal. She has history of congestive heart failure. She is not on any ANI inhibitor or ARB. She is not clear why she has not been on those medications. We should start her on Farxiga/Jardiance. I did not initiate it as she mentioned in passing she gets recurrent UTI. She should keep her blood sugar under better control. She should be on a low-sodium diet. She should avoid nonsteroidal anti-inflammatory medications. She has a renal mass which needs very close follow-up with her urologist. I ordered a renal ultrasound. She may need CT scan of the abdomen and pelvis with intravenous contrast after seeing her ultrasound. She needs to go back to her urologist as well as a pelvic exam by a solution professional. Follow-up laboratory studies were ordered. All her and her daughter's questions were answered. Follow-up given Orders: Orders Electrolytes 06/15/23 N18.30 - Chronic kidney disease, stage 3 unspecified Creatinine 06/15/23 N18.30 - Chronic kidney disease, stage 3 unspecified Protein Creatinine Ratio, Ur 06/15/23 N18.30 - Chronic kidney disease, stage 3 unspecified Blood Urea Nitrogen 06/15/23 N18.30 - Chronic kidney disease, stage 3 unspecified US renal BI 06/15/23 N18.30 - Chronic kidney disease, stage 3 unspecified, R31.9 - Hematuria, unspecified Medications: New empagliflozin (Jardiance) 5 mg (1/2 x 10 mg) PO DAILY 15 tabs 4RF 30 days Coding Level of Care Code Est Pt Level 4 (38196) Diagnoses Stage 3a chronic kidney disease N18.31 Chronic kidney disease stage 3 subtype: stage 3a (GFR 45-59) Gross hematuria R31.0 Hematuria type: gross Results Reviewed Nephrology Results: Hgb 12.2 g/dl (12.0-16.0) 06/01/23 WBC 6.4 X10*3/uL (4.8-10.8) 06/01/23 Plt Count 188 X10*3/uL (160-400) 06/01/23 Sodium 141 mmol/L (135-145) 06/01/23 Potassium 4.1 mmol/L (3.3-5.1) 06/01/23 Chloride 109 mmol/L (96-108) H 06/01/23 Carbon Dioxide 23 mmol/L (22-29) 06/01/23 BUN 38 mg/dL (9-16) H 06/01/23 Creatinine 1.53 mg/dL (0.5-1.4) H 06/01/23 Calcium 9.9 mg/dL (8.4-10.2) 06/01/23
[2023-06-15 14:00] VITALS: BP 140/60; PULSE 90; O2SAT 96; BMI 28.0
== END 2023-06-15 14:52 | disposition home or self-care (01) ==
PROVIDERS: PCP Physician Assistant; Visit Provider Internal Medicine Nephrology
DX: N18.31 Chronic kidney disease, stage 3a (principal); R31.0 Gross hematuria
CPT/HCPCS: 99214

== ENCOUNTER → 2023-06-15 13:34 | Outpatient (BNVA) | payer MEDICARE, SELFPAY | PROVIDERS: PCP Physician Assistant; Visit Provider Internal Medicine Nephrology | DX: N18.31 Chronic kidney disease, stage 3a (principal); R31.0 Gross hematuria | CPT/HCPCS: 99212 ==

== ENCOUNTER 2023-06-23 14:43 | Outpatient (REF) | payer MEDICARE, SELFPAY ==
--- NOTE | ~2023-06-23 | US_ITS ---
EXAMINATION: US RETROPERITONEAL LIMITED (RENAL ONLY) CLINICAL INFORMATION: Hematuria. COMPARISON: Ultrasound kidney 04/25/2017 TECHNIQUE: Routine grayscale imaging of kidneys was performed. FINDINGS: RIGHT KIDNEY: 8.7 x 3.8 x 4.1 cm (SAG x AP x TRV). The kidney is normal in size, lobulated contour, and echogenicity. Renal cortical thickness is normal. There are anechoic, likely parapelvic, lower pole cysts with largest measuring 1.8 x 0.9 x 1.2 cm. No echogenic stones seen. Suspect mild caliectasis. LEFT KIDNEY: 9.4 x 4.1 x 4.1 cm (SAG x AP x TRV). The kidney is normal in size, lobulated contour, and echogenicity. Renal cortical thickness is normal. There are prominent pyramids. No calculi or focal parenchymal lesions. No hydronephrosis. US/US renal BI IMPRESSION: Bilateral lobulated kidney contour with likely parapelvic lower pole cysts right kidney. There is suspicion for mild caliectasis. There are prominent pyramids in the left kidney. There are no echogenic stones or obvious hydronephrosis.
== END 2023-06-23 14:44 | disposition home or self-care (01) ==
LOC: HO.US 14:43
PROVIDERS: PCP Physician Assistant; Visit Provider Internal Medicine Nephrology
DX: N18.30 Chronic kidney disease, stage 3 unspecified (principal); R31.9 Hematuria, unspecified
CPT/HCPCS: 76775

== ENCOUNTER 2023-09-13 13:34 | Outpatient (REF) | payer MEDICARE, SELFPAY ==
[2023-09-13 14:59] LABS: Anion Gap 13 (12-20); Blood Urea Nitrogen 37 mg/dL (9-16); Calcium 9.8 mg/dL (8.4-10.2); Carbon Dioxide 26 mmol/L (22-29); Chloride 106 mmol/L (96-108); Estimated Glomerular Filt Rate 29; Potassium 4.4 mmol/L (3.3-5.1); Sodium 141 mmol/L (135-145)
[2023-09-13 15:01] LABS: Creatinine Urine 95.45 mg/dL
[2023-09-13 15:20] LABS: Protein/Creatinine Ratio, Ur 2.34 (<0.2); Total Protein Urine Random 223 mg/dL (<12)
[2023-09-17 15:03] LABS: IgA 324 mg/dL (70-320); IgG 1293 mg/dL (600-1540); IgM 117 mg/dL (50-300)
== END 2023-09-13 13:35 | disposition home or self-care (01) ==
LOC: HO.LAB 13:34
PROVIDERS: PCP Physician Assistant; Visit Provider Internal Medicine Nephrology
DX: N18.30 Chronic kidney disease, stage 3 unspecified (principal)
CPT/HCPCS: 36415; 80051; 82310; 82565; 82570; 82784; 84156; 84520; 86334

== ENCOUNTER 2023-09-21 10:27 | Outpatient (AMB) | payer MEDICARE, SELFPAY ==
--- NOTE | 2023-09-21 10:31 | HO.NEPHOV ---
Vital Signs 09/21/23 10:32 Height 5 ft 1 in Weight 150 lb 2 oz BMI 28.4 BP 124/50 L Blood Pressure Location Rt brachial Position Sitting Pulse 67 Pulse Source Pulse Oximeter Pulse Oximetry (%) 97 Oxygen Delivery Method Room Air Intake Visit Reasons: CKD/ 3 MO FU/ Confirmed [employer] Insurance Required: No Accompanied by: Daughter Allergies Sulfa (Sulfonamide Antibiotics) Allergy (Mild, Verified 09/21/23 10:34) HIVES HPI Comments Details: 82-year-old female with a type 2 diabetes over 40 years, hypertension, CAD, CHF among multiple other medical issues was seen in consultation for CKD. She is on insulin & has been able to manage her blood sugars fairly well. She had CAD & undergone angioplasty and stenting of her coronaries. She has A Fib but not on anticoagulation due to H/O intracranial bleed. She has history of Congestive heart failure but not on Farxiga ( expensive). She claims to have history of recurrent UTIs bu tnone recently. She is hypertensive and her BP is well controlled. She is not on ACEI/ARB. She does not take NSAID's regularly. She has no urinary symptoms, new bone or back pain, edema, hematuria. Her daughter and grand daughter were there during this encounter. She denies nausea, vomiting, diarrhea, PND, orthopnea or any other systemic complaints [facility] Medical History Heart failure, unspecified PAF (paroxysmal atrial fibrillation) DMII (diabetes mellitus, type 2) Atherosclerotic cardiovascular disease Surgical History History of ankle surgery Hx of hernia repair S/P HORTENCIA (total abdominal hysterectomy) Hx laparoscopic cholecystectomy Family History Mother Diabetes Father COPD (chronic obstructive pulmonary disease) Social History Housing: Apartment Alcohol intake: never Patient Tobacco Use Status: Former Tobacco user e-Cigarette/Vaping Use: Never Used service: No Current occupational status: retired Cognitive needs: No Hearing needs: No Vision needs: Yes Physical Exam Vital Signs: Last Vital Signs Pulse 67 09/21/23 10:32 BP 124/50 L 09/21/23 10:32 Pulse Ox 97 09/21/23 10:32 Oxygen Delivery Method Room Air 09/21/23 10:32 BMI result Body Mass Index 28.4 Const General: comfortable and no acute distress Orientation/consciousness: patient oriented x3 HEENT Head: Yes normocephalic Mouth: Normal oral and palatal mucosa present Eyes EOM: EOMs intact bilaterally Neck Neck: Yes supple Resp Auscultation: clear to auscultation bilaterally Cardio Jugular venous distension: no JVD Rate: regular rate GI Palpation (GI): Soft to palpation Auscultation: normal bowel sounds General: Yes no CVA tenderness Back/Spine/Pelvis Back: no CVA tenderness Skin General skin exam: no rashes or lesions noted Neuro General: patient oriented x3 and moves all extremities Extrem General: Yes no pedal edema Results Reviewed Nephrology Results: Hgb 12.2 g/dl (12.0-16.0) 06/01/23 WBC 6.4 X10*3/uL (4.8-10.8) 06/01/23 Plt Count 188 X10*3/uL (160-400) 06/01/23 Sodium 141 mmol/L (135-145) 09/13/23 Potassium 4.4 mmol/L (3.3-5.1) 09/13/23 Chloride 106 mmol/L (96-108) 09/13/23 Carbon Dioxide 26 mmol/L (22-29) 09/13/23 BUN 37 mg/dL (9-16) H 09/13/23 Creatinine 1.70 mg/dL (0.5-1.4) H 09/13/23 Calcium 9.8 mg/dL (8.4-10.2) 09/13/23 Urine Creatinine 95.45 mg/dL 09/13/23 Protein/Creatinin Ratio 2.34 (<0.2) H 09/13/23 Renal US 06/23/23 Assessment & Plan Assessment & Plan (1) CKD (chronic kidney disease) stage 3, GFR 30-59 ml/min: Code(s): N18.30 - Chronic kidney disease, stage 3 unspecified Category: Medical Qualifiers: Chronic kidney disease stage 3 subtype: stage 3a (GFR 45-59) Qualified Code(s): N18.31 - Chronic kidney disease, stage 3a (2) HTN (hypertension): Code(s): I10 - Essential (primary) hypertension Category: Medical Qualifiers: Hypertension type: primary hypertension Qualified Code(s): I10 - Essential (primary) hypertension Ulysses Roberts has 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 She has diabetes mellitus over 40 years. Her A1c is still over 7. She is proteinuric. She has no hypoglycemia. Her blood pressure is at goal. She has history of congestive heart failure. She is not on any ANI inhibitor or ARB. She is not clear why she has not been on those medications. We ideally should start her on Farxiga/Jardiance but expensive for patient and cant afford. She should keep her blood sugar under better control. She should be on a low-sodium diet. She should avoid nonsteroidal anti-inflammatory medications. She has a renal mass which needs very close follow-up with her urologist. Her recent renal ultrasound was reviewed. Follow-up laboratory studies were ordered. All her and her daughter's questions were answered. Follow-up given Orders: Orders Creatinine Today I10 - Essential (primary) hypertension, N18.31 - Chronic kidney disease, stage 3a Electrolytes Today I10 - Essential (primary) hypertension, N18.31 - Chronic kidney disease, stage 3a Blood Urea Nitrogen Today I10 - Essential (primary) hypertension, N18.31 - Chronic kidney disease, stage 3a Medications: Discontinued empagliflozin (Jardiance) Discontinued Reason: Doctor's Order 5 mg (1/2 x 10 mg) PO DAILY 30 days 15 tabs 4RF Coding Level of Care Code Est Pt Level 4 (50442) Diagnoses Stage 3a chronic kidney disease N18.31 Chronic kidney disease stage 3 subtype: stage 3a (GFR 45-59) Primary hypertension I10 Hypertension type: primary hypertension
[2023-09-21 10:32] VITALS: BP 124/50; PULSE 67; O2SAT 97; BMI 28.4
== END 2023-09-21 11:02 | disposition home or self-care (01) ==
PROVIDERS: PCP Physician Assistant; Visit Provider Internal Medicine Nephrology
DX: N18.31 Chronic kidney disease, stage 3a (principal); I10 Essential (primary) hypertension
CPT/HCPCS: 99214

== ENCOUNTER → 2023-09-21 10:27 | Outpatient (BNVA) | payer MEDICARE, SELFPAY | PROVIDERS: PCP Physician Assistant; Visit Provider Internal Medicine Nephrology | DX: I13.0 Hypertensive heart and chronic kidney disease with heart failure and stage 1 through stage 4 chronic kidney disease, or unspecified chronic kidney disease (principal); I50.9 Heart failure, unspecified; N18.31 Chronic kidney disease, stage 3a; I48.91 Unspecified atrial fibrillation; Z79.899 Other long term (current) drug therapy | CPT/HCPCS: 99212 ==

== ENCOUNTER 2023-11-02 10:49 | Outpatient (REF) | payer MEDICARE, SELFPAY ==
[2023-11-02 12:17] LABS: Anion Gap 13 (12-20); Blood Urea Nitrogen 40 mg/dL (9-16); Carbon Dioxide 23 mmol/L (22-29); Chloride 105 mmol/L (96-108); Estimated Glomerular Filt Rate 33; Potassium 4.5 mmol/L (3.3-5.1); Sodium 136 mmol/L (135-145)
[2023-11-02 12:35] LABS: Creatinine Urine 30.44 mg/dL; Protein/Creatinine Ratio, Ur 2.73 (<0.2); Total Protein Urine Random 83 mg/dL (<12)
== END 2023-11-02 10:50 | disposition home or self-care (01) ==
LOC: HO.LAB 10:49
PROVIDERS: PCP Physician Assistant; Visit Provider Internal Medicine Nephrology
DX: N18.30 Chronic kidney disease, stage 3 unspecified (principal)
CPT/HCPCS: 36415; 80051; 82565; 82570; 84156; 84520

== ENCOUNTER 2023-11-10 10:46 | Outpatient (AMB) | payer MEDICARE, SELFPAY ==
[2023-11-10 11:03] VITALS: BP 118/60; PULSE 70; O2SAT 96; BMI 28.3
--- NOTE | 2023-11-10 11:03 | MHC.PC.OV ---
Vital Signs 11/10/23 11:03 Height 5 ft 1 in Weight 150 lb BMI 28.3 BP 118/60 Blood Pressure Location Lt brachial Position Sitting Pulse 70 Pulse Source Pulse Oximeter Pulse Oximetry (%) 96 Oxygen Delivery Method Room Air Intake Visit Reasons: f/u HTN/ DMII Machine Operator Hop Worker Required: No Grizzly Worker: Present Accompanied by: Daughter Allergies Sulfa (Sulfonamide Antibiotics) Allergy (Mild, Verified 11/10/23 11:21) HIVES Medication List - Last Reconciled 11/10/23 by Todd Espinal PA-C ascorbic acid (vitamin C) ER 500 mg PO DAILY aspirin 81 mg PO DAILY atorvastatin 80 mg PO BEDTIME 90 days calcium carbonate (Calcium 600) 600 mg PO DAILY cetirizine 10 mg PO DAILY PRN cholecalciferol (vitamin D3) 10 mcg PO DAILY citalopram 20 mg PO DAILY 90 days clobetasol 0.05% 1 appl topical DAILY 30 days ferrous sulfate 325 mg PO DAILY insulin glargine (Basaglar KwikPen U-100 Insulin) 17 units (0.17 mL) subcut BEDTIME 30 days insulin lispro (Humalog U-100 Insulin) 8 units (0.08 mL) subcut TID 30 days insulin syringe-needle U-100 (BD Insulin Syringe Ultra-Fine) As directed isosorbide mononitrate ER 60 mg PO DAILY 90 days metoprolol succinate ER 50 mg PO DAILY nitroglycerin 0.4 mg sublingual Q5M PRN 4 days pantoprazole 20 mg PO QAM 90 days pen needle, diabetic (BD Ultra-Fine Short Pen Needle) once Daily primidone 50 mg PO TID 90 days Tobacco use date assessed: 11/10/23 Fall risk assessment: No Falls in past year Last assessed Fall Risk: 11/10/23 Dental Screening Dental Screen Date: 11/10/23 Did you have a dental visit in the last 12 months?: No Did you have a dental problem in the last 6 months where you did not have access to dental care?: No Was dental information given to patient?: Patient has dentist HPI f/u HTN/ DMII HPI Details Patient is an 83-year-old female here today for new patient visit. Patient has a past medical history significant for type 2 diabetes, hypertension, depression, AFIB, CAD( stent placement), COPD, CHF, GERD. .. Type 2 diabetes: Patient continues on insulin therapy and has been able to manage her blood sugars fairly well. Today's A1c is 7.1 from 7.9. Her diet has been much better as she is getting Meals on wheels .. AFIB: Not on anticoagulation due to a severe head bleed the past, continues on aspirin daily. Followed by elevator worker in [place] like to transfer care to [facility]. Currently under rate control with metoprolol. She also has a history of coronary artery disease and has a stent placed. Continues on high potency statin and aspirin. Will check her fasting lipid panel to ensure appropriate LDL below 70. .. Congestive heart failure : Has now follow-up with [facility]. Has a chronic history of Congestive heart failure though at this time no need for diuretics. Seems euvolemic on physical exam today. .. Right renal mass: Reviewed previous PCP and Nephrology records--> Was followed by flight coordinator [place] for right renal mass. She was to undergo MRI with contrast as recent imaging showing enlarging right renal mass .. Chronic kidney disease stage III: Now followed by Nephrology. Recommendations have been made to consider farxiga or Jardiance unfortunately have been too expensive. Laboratory Tests 12/21/21 12/31/22 06/01/23 16:46 07:24 11:22 RBC 4.15 L 4.20 3.93 L Hgb 12.2 Creatinine 1.59 H Fasting Glucose 127 H AST 75 H ALT 115 H LDL Cholesterol, C alc 77 U Random Total Pro tein 09/13/23 11/02/23 11/02/23 13:46 11:02 11:03 RBC Hgb Creatinine 1.70 H 1.50 H Fasting Glucose AST ALT LDL Cholesterol, C alc U Random Total Pro tein 83 H PFSH Medical History (Updated 11/14/23 @ 07:19 by Todd Espinal PA-C) DMII (diabetes mellitus, type 2) Atherosclerotic cardiovascular disease Surgical History History of ankle surgery Hx of hernia repair S/P HORTENCIA (total abdominal hysterectomy) Hx laparoscopic cholecystectomy Family History Mother Diabetes Father COPD (chronic obstructive pulmonary disease) Social History Housing: Apartment Alcohol intake: never Patient Tobacco Use Status: Former Tobacco user e-Cigarette/Vaping Use: Never Used service: No Current occupational status: retired Cognitive needs: No Hearing needs: No Vision needs: Yes Questionnaire PHQ-9 Over the last 2 weeks, how often have you been bothered by any of the following problems? 1. Little interest or pleasure in doing things: not at all 2. Feeling down, depressed, or hopeless: not at all 3. Trouble falling or staying asleep, or sleeping too much: not at all 4. Feeling tired or having little energy: not at all 5. Poor appetite or overeating: not at all 6. Feeling bad about yourself - or that you are a failure or have let yourself or your family down: not at all 7. Trouble concentrating on things, such as reading the newspaper or watching television: not at all 8. Moving or speaking so slowly that other people could have noticed. Or the opposite - being so fidgety or restless that you have been moving around a lot more than usual: not at all 9. Thoughts that you would be better off or of hurting yourself in some way: not at all Total score: 0 Depression Screening Interpretation: Negative Depression Screening Done: Yes 79744 - PHQ-9 Billing: Yes Source: Developed by Drs. Emigdio Webber, Cathy Will, Khris Bernal and colleagues, with an educational belle from [employer]. Thrive Questionnaire Date Thrive assessed: 11/10/23 I am a: Patient What is your living situation today?: I have a steady place to live Within the past 12 months, did the food you bought not last and you didn't have the money to get more?: Never true Within the past 12 months, did you worry whether your food would run out before you got money to buy more?: Never true Do you have trouble paying for medicines?: No Do you have trouble getting transportation to medical appointments?: No Do you have trouble paying your heating and electricity bill?: No Do you have trouble taking care of your child, family member or friend?: No Do you have trouble with day-to-day activities such as bathing, preparing meals, shopping, managing finances, etc.?: No Are you currently unemployed and looking for a job?: No Are you interested in more education?: No Please select the resources that you would like help with: None Currently or been in a relationship where the following occur: no concerns reported THRIVE Score: 0 AUDIT C Alcohol Use Questionnaire (AUDIT-C) 1. How often do you have a drink containing alcohol?: Never 3. How often do you have six or more drinks on one occasion?: Never Total Score: 0 SAI-7 AMB Questionnaire SAI-7 Date SAI - 7 assessed: 11/10/23 Feeling nervous, anxious, or on edge: 0 = Not at all Not being able to stop or control worryin = Not at all Worrying too much about different things: 0 = Not at all Trouble relaxin = Not at all Being so restless that it is hard to sit still: 0 = Not at all Becoming easily annoyed or irritable: 0 = Not at all Feeling afraid as if something awful might happen: 0 = Not at all Total SAI-7 score (0-4 normal; 5-9 mild; 10-14 moderate; 15-21 severe): 0 Source: Developed by Drs. Emigdio Webber, Cathy Will, Khris Bernal and colleagues, with an educational belle from [employer]. SAI-7 Assessment Billing SAI-7 Assessment Tool: SAI-7 Assessment 98279 (The patient's daughter reports that the patient is doing very well on citalopram.) Review of Systems Const Denies headache(s) Eyes Denies loss of vision ENT Denies vertigo, Denies dizziness, Denies headache(s) and Denies sore throat Card Denies chest pain, Denies leg edema and Denies lightheadedness Resp Denies cough, Denies hemoptysis and Denies wheezing GI Denies abdominal pain, Denies melena, Denies constipation, Denies diarrhea and Denies vomiting Denies urinary frequency, Denies dysuria and Denies urinary urgency Musc Denies arthralgias, Denies joint swelling, Denies numbness and Denies tingling Neuro Denies Abnormal speech present, Denies behavioral changes, Denies vertigo, Denies dizziness, Denies headache(s), Denies loss of vision, Denies memory loss, Denies numbness and Denies tingling Psych Denies anxiety, Denies behavioral changes, Denies depression, Denies memory loss and Denies panic attacks Paul/Lymph Denies easy bleeding and Denies easy bruising Aller/Immun Denies wheezing Physical exam (Primary Care) Vital Signs: Last Vital Signs Pulse 70 11/10/23 11:03 BP 118/60 11/10/23 11:03 Pulse Ox 96 11/10/23 11:03 Oxygen Delivery Method Room Air 11/10/23 11:03 BMI result Body Mass Index 28.3 Tobacco/Smoking Status: Tobacco use Status Tobacco use date assessed 11/10/23 11/10/23 11:11 Patient Tobacco Use Status Former Tobacco user 11/10/23 11:03 e-Cigarette/Vaping Use Never Used 11/10/23 11:03 PHQ-9: PHQ-9 Score PHQ-9: Total score 0 11/10/23 11:24 Depression Screening Interpretation: Negative Thrive Assessment: Date of Thrive Assessment Date Thrive assessed 11/10/23 11/10/23 11:11 Currently or been in a relationship where the following occur: no concerns reported Const General: healthy appearing, no acute distress, alert and awake Nutritional Appearance: well nourished Orientation/consciousness: oriented to person, oriented to place and oriented to time HENMT Ears: TM's normal bilaterally General nose exam: Normal nasal mucous membranes and turbinates present Eyes Conjunctivae: conjunctivae normal Sclerae: sclerae normal Pupils: Equal, round and reactive pupils present Neck Neck: Yes no lymphadenopathy and Yes no JVD Thyroid: Thyroid normal Carotids: no bruits Resp Effort & Inspection: normal respiratory effort and not tachypneic Auscultation: no crackles, no rales, no rhonchi and no wheezes Cardio Rate: regular rate Rhythm: regular rhythm Heart sounds: no murmurs and normal S1 and S2 GI Palpation (GI): Soft to palpation, nontender, no hepatomegaly and no splenomegaly Auscultation: normal bowel sounds Skin General skin exam: no rashes or lesions noted and dry skin Neuro General: oriented to person, oriented to place and oriented to time Cranial nerves: Yes Equal, round and reactive pupils present Speech: No Abnormal speech present Gait exam (Neuro): Normal gait present Motor exam (neuro): no tremor noted Extrem Right upper extremity: full ROM Left upper extremity: full ROM Right lower extremity: full ROM; no edema Left lower extremity: full ROM; no edema Psych Mental Status: mental status grossly normal Speech and movement: Normal speech and movement present Affect: normal affect Attitude: cooperative Thought process: Normal thought process present Results AMB Hemoglobin A1c AMB Hemoglobin A1c 7.4 % Last Edit by DAVID Hunt on 11/10/23 11:25 Results Reviewed Results Reviewed: Laboratory Last Values Hgb A1c (Clinic) 7.4 % (4.0-6.0) H 11/10/23 10:55 Assessment and Plan Assessment & Plan (1) DMII (diabetes mellitus, type 2): Code(s): E11.9 - Type 2 diabetes mellitus without complications Qualifiers: Diabetes mellitus complication status: with hyperglycemia Diabetes mellitus terminal computer operator insulin use: with terminal computer operator use Qualified Code(s): E11.65 - Type 2 diabetes mellitus with hyperglycemia; Z79.4 - half-way (current) use of insulin Plan: Patient's type 2 diabetes controlled with current insulin regime. Today's A1c is 7.4.. Goal A1c is to be below 8.0 due to patient's age and comorbidities. (2) HTN (hypertension): Code(s): I10 - Essential (primary) hypertension Qualifiers: Hypertension type: primary hypertension Qualified Code(s): I10 - Essential (primary) hypertension Plan: Blood pressure acceptable today in office. Will continue her current dose of antihypertensive medication with goal blood pressure be below 140/90 (3) GERD (gastroesophageal reflux disease): Code(s): K21.9 - Gastro-esophageal reflux disease without esophagitis Qualifiers: Esophagitis presence: without esophagitis Qualified Code(s): K21.9 - Gastro-esophageal reflux disease without esophagitis Plan: Continues on PPI therapy with good effect on reducing her GERD symptoms. (4) MDD (major depressive disorder), recurrent episode, moderate: Code(s): F33.1 - Major depressive disorder, recurrent, moderate Plan: Patient continues on SSRI therapy over last several years. Currently gets support from her family and feels stable from a mental health point of view. (5) Afib: Code(s): I48.91 - Unspecified atrial fibrillation Qualifiers: Atrial fibrillation type: persistent (not longstanding) Qualified Code(s): I48.19 - Other persistent atrial fibrillation Plan: Patient has a chronic history of AFib. Was placed on anticoagulation in the past though had a severe head bleed from a fall. Was taken off anticoagulation and now on daily aspirin therapy. She otherwise denies any chest discomfort palpitations or dizziness. She would like to establish care with a elevator worker here in [place] (6) CHF (congestive heart failure), NYHA class III: Code(s): I50.9 - Heart failure, unspecified Qualifiers: Congestive heart failure chronicity: chronic Congestive heart failure type: diastolic Qualified Code(s): I50.32 - Chronic diastolic (congestive) heart failure Plan: Appears euvolemic on physical exam today. No overt signs of Congestive heart failure. (7) Right renal mass: Code(s): N28.89 - Other specified disorders of kidney and ureter Plan: As per HPI patient has a right renal mass that has enlarged the last year. Family reports she had been followed for this renal mass though no further concerns (8) Hypothyroid: Code(s): E03.9 - Hypothyroidism, unspecified Qualifiers: Hypothyroidism type: unspecified Qualified Code(s): E03.9 - Hypothyroidism, unspecified Plan: Patient's most recent TSH stable.. Was followed by endocrinology as well for this. Has not been started on levothyroxine at this time will continue to follow TSH (9) Psoriasis: Code(s): L40.9 - Psoriasis, unspecified Plan: She reports her psoriasis skin manifestations are fairly well controlled. She does have a new ferrari pool given to her last visit at his has been helpful on her scalp which.. on physical exam does try patches over her scalp back of neck. Also has similar appearance in her ears. Orders: Orders Complete Blood Count no Diff 11/10/23 E11.65 - Type 2 diabetes mellitus with hyperglycemia, Z79.4 - half-way (current) use of insulin Lipid Panel 11/10/23 I25.10 - Atherosclerotic heart disease of [place] coronary artery without angina pectoris AMB Hemoglobin A1c 11/10/23 E11.65 - Type 2 diabetes mellitus with hyperglycemia, Z79.4 - half-way (current) use of insulin Comprehensive [place]. Panel Fast 11/10/23 E11.65 - Type 2 diabetes mellitus with hyperglycemia, Z79.4 - termite helper (current) use of insulin TSH reflex Free T4 11/10/23 E03.9 - Hypothyroidism, unspecified Patient Instructions: Goal: Blood pressure to remain below 140/90, A1c to be below 8.0 Barriers: Adherence to physical activity and healthy eating habits Coding Level of Care Code Est Pt Level 4 (40357) Diagnoses Type 2 diabetes mellitus with hyperglycemia, with long-term current use of insulin E11.65; Z79.4 Diabetes mellitus complication status: with hyperglycemia Diabetes mellitus terminal computer operator insulin use: with terminal computer operator use Primary hypertension I10 Hypertension type: primary hypertension Gastroesophageal reflux disease without esophagitis K21.9 Esophagitis presence: without esophagitis MDD (major depressive disorder), recurrent episode, moderate F33.1 Persistent atrial fibrillation I48.19 Atrial fibrillation type: persistent (not longstanding) Chronic diastolic congestive heart failure, NYHA class 3 I50.32 Congestive heart failure chronicity: chronic Congestive heart failure type: diastolic Right renal mass N28.89 Hypothyroidism, unspecified type E03.9 Hypothyroidism type: unspecified Psoriasis L40.9 Additional Codes SAI-7 Assessment Billing - SAI-7 Assessment Tool: SAI-7 Assessment 28682 ([id number])
== END 2023-11-10 11:33 | disposition home or self-care (01) ==
PROVIDERS: PCP Physician Assistant; Visit Provider Physician Assistant
DX: E11.65 Type 2 diabetes mellitus with hyperglycemia (principal); Z79.4 Long term (current) use of insulin
CPT/HCPCS: 83036; 99214

== ENCOUNTER 2023-12-01 14:02 | Outpatient (AMB) | payer MEDICARE, SELFPAY ==
--- NOTE | 2023-12-01 14:03 | MHC.OFFVIS ---
Vital Signs 12/01/23 14:04 Height 5 ft 1 in Weight 152 lb 1.903 oz BMI 28.7 BP 150/64 H Blood Pressure Location Lt brachial Position Sitting Pulse 75 Intake Visit Reasons: 6 mth f/up Applied Psychology Chair Required: No Closing Machine Operator: Closing Machine Operator Present Accompanied by: Daughter Allergies Sulfa (Sulfonamide Antibiotics) Allergy (Mild, Verified 11/10/23 11:21) HIVES Medication List - Last Reconciled 12/01/23 by Tom Jordan MD ascorbic acid (vitamin C) ER 500 mg PO DAILY aspirin 81 mg PO DAILY atorvastatin 80 mg PO BEDTIME 90 days calcium carbonate (Calcium 600) 600 mg PO DAILY cetirizine 10 mg PO DAILY PRN cholecalciferol (vitamin D3) 10 mcg PO DAILY citalopram 20 mg PO DAILY 90 days clobetasol 0.05% 1 appl topical DAILY 30 days ferrous sulfate 325 mg PO DAILY insulin glargine (Basaglar KwikPen U-100 Insulin) 17 units (0.17 mL) subcut BEDTIME 30 days insulin lispro (Humalog U-100 Insulin) 8 units (0.08 mL) subcut TID 30 days insulin syringe-needle U-100 (BD Insulin Syringe Ultra-Fine) As directed isosorbide mononitrate ER 60 mg PO DAILY 90 days metoprolol succinate ER 50 mg PO DAILY nitroglycerin 0.4 mg sublingual Q5M PRN 4 days pantoprazole 20 mg PO QAM 90 days pen needle, diabetic (BD Ultra-Fine Short Pen Needle) once Daily primidone 50 mg PO TID 90 days HPI Comments Details: Alejandra returns for follow-up. Switched from [facility] for convenience. Per their last office note, history of coronary disease, paroxysmal atrial fibrillation, heart failure with preserved ejection fraction, CVA, peripheral vascular disease, hypertension, dyslipidemia. Overall, she feels well. No specific cardiac symptoms at this time. [facility] Medical History (Updated 11/14/23 @ 07:19 by Todd Espinal PA-C) DMII (diabetes mellitus, type 2) Atherosclerotic cardiovascular disease Surgical History History of ankle surgery Hx of hernia repair S/P HORTENCIA (total abdominal hysterectomy) Hx laparoscopic cholecystectomy Family History Mother Diabetes Father COPD (chronic obstructive pulmonary disease) Social History Housing: Apartment Alcohol intake: never Patient Tobacco Use Status: Former Tobacco user e-Cigarette/Vaping Use: Never Used service: No Current occupational status: retired Cognitive needs: No Hearing needs: No Vision needs: Yes Review of Systems Const Denies chills, Denies fatigue, Denies fever(s), Denies weight gain and Denies weight loss ENT Denies dizziness Card Denies chest pain, Denies leg edema, Denies lightheadedness, Denies palpitations, Reports dyspnea on exertion, Denies orthopnea and Denies other Resp Denies cough and Reports dyspnea on exertion GI Denies hematochezia and Denies change in stool character Musc Denies abnormal gait, Denies muscle weakness, Denies numbness, Denies radiating pain into limb and Denies tingling Neuro Denies abnormal gait, Denies dizziness, Denies numbness and Denies tingling Endo Denies fatigue and Denies palpitations Physical Exam Vital Signs: Last Vital Signs Pulse 75 12/01/23 14:04 BP 150/64 H 12/01/23 14:04 BMI result Body Mass Index 28.7 Const General: comfortable and no acute distress Orientation/consciousness: patient oriented x3 HEENT Other: Unremarkable Head: Yes normal to inspection Neck Neck: Yes normal visual inspection Chest Chest palpation & inspection: normal inspection of the chest Resp Auscultation: clear to auscultation bilaterally Cardio Palpation: normal PMI Heart sounds: S1 normal heart sound present, S2 normal heart sound present, no gallops, no murmurs and no rubs GI Palpation (GI): Soft to palpation Back/Spine/Pelvis Other: unremarkable Skin General skin exam: no rashes or lesions noted Neuro General: patient oriented x3 Extrem General: Yes normal to inspection Psych Mental Status: mental status grossly normal Assessment & Plan Assessment & Plan (1) PAF (paroxysmal atrial fibrillation): Code(s): I48.0 - Paroxysmal atrial fibrillation Category: Medical Plan: By EKG, in sinus rhythm. Recent Holter shows no clear atrial fibrillation. On beta-blockers. No changes. Per history, head injury/bleeding in the past and hence not on any anticoagulation. Discussed with daughter today and she states that patient would never like to go back on anticoagulation. (2) Atherosclerotic cardiovascular disease: Code(s): I25.10 - Atherosclerotic heart disease of [place] coronary artery without angina pectoris Category: Medical Plan: Cardiac catheterization 2011 with right coronary artery stenting. Clinically, she does not have any angina. In that study, she had some disease in circumflex and diagonal system but nothing significant. On aspirin, statins. (3) Heart failure, unspecified: Code(s): I50.9 - Heart failure, unspecified Category: Medical Qualifiers: Heart failure chronicity: unspecified Heart failure type: unspecified Qualified Code(s): I50.9 - Heart failure, unspecified Plan: In the recent echocardiogram, LVEF 68% with mild diastolic dysfunction. No obvious evidence of congestive heart failure on exam. Not on regular diuretics. Shortness of breath could also be from COPD. (4) Carotid artery stenosis: Code(s): I65.29 - Occlusion and stenosis of unspecified carotid artery Category: Medical Plan: History of carotid artery stenosis but they do not want any specific workup. They would like leave it as is. Plan Overall, they would like to keep the care as simple as conservative as possible and avoid anything aggressive. Coding Level of Care Code Est Pt Level 4 (50257) Diagnoses PAF (paroxysmal atrial fibrillation) I48.0 Atherosclerotic cardiovascular disease I25.10 Heart failure, unspecified HF chronicity, unspecified heart failure type I50.9 Heart failure chronicity: unspecified Heart failure type: unspecified Carotid artery stenosis I65.29
[2023-12-01 14:04] VITALS: BP 150/64; PULSE 75; BMI 28.7
== END 2023-12-01 14:28 | disposition home or self-care (01) ==
PROVIDERS: PCP Physician Assistant; Visit Provider Internal Medicine
DX: I48.0 Paroxysmal atrial fibrillation (principal); I25.10 Atherosclerotic heart disease of native coronary artery without angina pectoris; I50.9 Heart failure, unspecified; I65.29 Occlusion and stenosis of unspecified carotid artery
CPT/HCPCS: 93010; 99214

== ENCOUNTER → 2023-12-01 14:02 | Outpatient (BNVA) | payer MEDICARE, SELFPAY | PROVIDERS: PCP Physician Assistant; Visit Provider Internal Medicine | DX: I48.0 Paroxysmal atrial fibrillation (principal); I25.10 Atherosclerotic heart disease of native coronary artery without angina pectoris; I50.9 Heart failure, unspecified; I65.29 Occlusion and stenosis of unspecified carotid artery | CPT/HCPCS: 93005; 99212 ==

== ENCOUNTER 2024-01-17 12:18 | Outpatient (REF) | payer MEDICARE, SELFPAY ==
[2024-01-17 13:02] LABS: Hematocrit 37.5 % (37.0-47.0); Hemoglobin 12.2 g/dl (12.0-16.0); Mean Corpuscular HGB Conc 32.5 g/dl (31.0-35.0); Mean Corpuscular Hemoglobin 31.2 pg (27.0-33.0); Mean Corpuscular Volume 95.9 fL (80.0-98.0); Mean Platelet Volume 10.9 fL (9.4-12.3); Platelet Count 177 X10*3/uL (160-400); Red Blood Count 3.91 X10*6/uL (4.20-5.50); Red Cell Distribution Width 13.3 % (11.0-16.0); White Blood Count 7.6 X10*3/uL (4.8-10.8)
[2024-01-17 13:32] LABS: Alanine Aminotransferase 17 U/L (0-31); Albumin Level 4.2 g/dL (3.5-5.0); Alkaline Phosphatase 77 U/L (39-117); Anion Gap 10 (12-20); Aspartate Amino Transferase 21 U/L (5-31); Bilirubin Total 0.2 mg/dL (0.0-1.0); Blood Urea Nitrogen 40 mg/dL (9-16); Calcium 9.9 mg/dL (8.4-10.2); Carbon Dioxide 25 mmol/L (22-29); Chloride 109 mmol/L (96-108); Cholesterol 140 mg/dL (<200); Estimated Glomerular Filt Rate 27; Glucose Fasting 121 mg/dL (60-99); HDL Cholesterol 44 mg/dL (>40); LDL Cholesterol Calculated 72 mg/dL (<100); Potassium 4.7 mmol/L (3.3-5.1); Sodium 139 mmol/L (135-145); Total Protein 7.7 g/dL (6.5-8.0); Triglycerides 123 mg/dL (<150)
[2024-01-17 13:52] LABS: TSH reflex Free T4 1.92 uIU/mL (0.32-4.0)
== END 2024-01-17 12:19 | disposition home or self-care (01) ==
LOC: HO.LAB 12:18
PROVIDERS: PCP Physician Assistant; Visit Provider Internal Medicine Nephrology
DX: E11.65 Type 2 diabetes mellitus with hyperglycemia (principal); I25.10 Atherosclerotic heart disease of native coronary artery without angina pectoris; Z79.4 Long term (current) use of insulin; E03.9 Hypothyroidism, unspecified
CPT/HCPCS: 36415; 80053; 80061; 84443; 85027

== ENCOUNTER 2024-01-25 11:52 | Outpatient (AMB) | payer MEDICARE, SELFPAY ==
--- NOTE | 2024-01-25 12:14 | HO.NEPHOV_ITS ---
Vital Signs 01/25/24 12:17 Height 5 ft 1 in Weight 154 lb 8 oz BMI 29.2 BP 124/50 L Blood Pressure Location Rt brachial Position Sitting Pulse 79 Pulse Source Pulse Oximeter Pulse Oximetry (%) 94 Oxygen Delivery Method Room Air Intake Visit Reasons: 4 mo fu w/labs- Conf w/ daughter Industrial Hygiene Manager Required: No Accompanied by: Daughter Allergies Sulfa (Sulfonamide Antibiotics) Allergy (Mild, Verified 01/25/24 12:18) HIVES HPI Comments Details: 82-year-old female with a type 2 diabetes over 40 years, hypertension, CAD, CHF among multiple other medical issues was seen in follow up for CKD. She is on insulin & has been able to manage her blood sugars fairly well. She had CAD & undergone angioplasty and stenting of her coronaries. She has A Fib but not on anticoagulation due to H/O intracranial bleed. She has history of Congestive heart failure but not on Farxiga ( expensive). She is hypertensive and her BP is well controlled. She is not on ACEI/ARB. She does not take NSAID's regularly. She has no urinary symptoms, new bone or back pain, edema, hematuria. Her da ughter was there during this encounter. She denies nausea, vomiting, diarrhea, PND, orthopnea or any other systemic complaints [facility] Medical History (Updated 01/25/24 @ 21:56 by Sergey Sanches MD) DMII (diabetes mellitus, type 2) Atherosclerotic cardiovascular disease Surgical History History of ankle surgery Hx of hernia repair S/P HORTENCIA (total abdominal hysterectomy) Hx laparoscopic cholecystectomy Family History Mother Diabetes Father COPD (chronic obstructive pulmonary disease) Social History Housing: Apartment Alcohol intake: never Patient Tobacco Use Status: Former Tobacco user e-Cigarette/Vaping Use: Never Used service: No Current occupational status: retired Cognitive needs: No Hearing needs: No Vision needs: Yes Review of Systems Const All systems reviewed & are unremarkable except as noted in HPI and below Physical Exam Vital Signs: Last Vital Signs Pulse 79 01/25/24 12:17 BP 124/50 L 01/25/24 12:17 Pulse Ox 94 01/25/24 12:17 Oxygen Delivery Method Room Air 01/25/24 12:17 BMI result Body Mass Index 29.2 Const General: comfortable and no acute distress Orientation/consciousness: patient oriented x3 HEENT Head: Yes normocephalic Mouth: Normal oral and palatal mucosa present Eyes EOM: EOMs intact bilaterally Neck Neck: Yes supple Resp Auscultation: clear to auscultation bilaterally Cardio Jugular venous distension: no JVD Rate: regular rate GI Palpation (GI): Soft to palpation Auscultation: normal bowel sounds General: Yes no CVA tenderness Back/Spine/Pelvis Back: no CVA tenderness Skin General skin exam: no rashes or lesions noted Neuro General: patient oriented x3 and moves all extremities Extrem General: Yes no pedal edema Results Reviewed Nephrology Results: Hgb 12.2 g/dl (12.0-16.0) 01/17/24 WBC 7.6 X10*3/uL (4.8-10.8) 01/17/24 Plt Count 177 X10*3/uL (160-400) 01/17/24 Sodium 139 mmol/L (135-145) 01/17/24 Potassium 4.7 mmol/L (3.3-5.1) 01/17/24 Chloride 109 mmol/L (96-108) H 01/17/24 Carbon Dioxide 25 mmol/L (22-29) 01/17/24 BUN 40 mg/dL (9-16) H 01/17/24 Creatinine 1.76 mg/dL (0.5-1.4) H 01/17/24 Calcium 9.9 mg/dL (8.4-10.2) 01/17/24 Urine Creatinine 30.44 mg/dL 11/02/23 Protein/Creatinin Ratio 2.73 (<0.2) H 11/02/23 Renal US 06/23/23 Assessment & Plan Assessment & Plan (1) CKD (chronic kidney disease) stage 3, GFR 30-59 ml/min: Code(s): N18.30 - Chronic kidney disease, stage 3 unspecified Category: Medical Qualifiers: Chronic kidney disease stage 3 subtype: stage 3a (GFR 45-59) Qualified Code(s): N18.31 - Chronic kidney disease, stage 3a (2) Diabetic nephropathy: Code(s): E11.21 - Type 2 diabetes mellitus with diabetic nephropathy Category: Medical Qualifiers: Diabetes mellitus type: type 2 Qualified Code(s): E11.21 - Type 2 diabetes mellitus with diabetic nephropathy (3) HTN (hypertension): Code(s): I10 - Essential (primary) hypertension Category: Medical Qualifiers: Hypertension type: primary hypertension Qualified Code(s): I10 - Essential (primary) hypertension Ulysses Roberts has 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 She has diabetes mellitus over 40 years. Her A1c is still over 7. She is proteinuric. She has no hypoglycemia. Her blood pressure is at goal. She has history of congestive heart failure. She is not on any ANI inhibitor or ARB. She is not clear why she has not been on those medications. We ideally should start her on Farxiga/Jardiance but expensive for patient and cant afford. She should keep her blood sugar under better control. She should be on a low-sodium diet. She should avoid nonsteroidal anti-inflammatory medications. She has a renal mass which needs very close follow-up with her urologist. Follow-up laboratory studies were ordered. All her and her daughter's questions were answered. Follow-up given Orders: Orders Creatinine Today N18.31 - Chronic kidney disease, stage 3a Blood Urea Nitrogen Today N18.31 - Chronic kidney disease, stage 3a Electrolytes Today N18.31 - Chronic kidney disease, stage 3a Coding Level of Care Code Est Pt Level 4 (93710) Diagnoses Stage 3a chronic kidney disease N18.31 Chronic kidney disease stage 3 subtype: stage 3a (GFR 45-59) Diabetic nephropathy associated with type 2 diabetes mellitus E11.21 Diabetes mellitus type: type 2 Primary hypertension I10 Hypertension type: primary hypertension
[2024-01-25 12:17] VITALS: BP 124/50; PULSE 79; O2SAT 94; BMI 29.2
== END 2024-01-25 12:30 | disposition home or self-care (01) ==
PROVIDERS: PCP Physician Assistant; Visit Provider Internal Medicine Nephrology
DX: N18.31 Chronic kidney disease, stage 3a (principal); E11.21 Type 2 diabetes mellitus with diabetic nephropathy; I10 Essential (primary) hypertension
CPT/HCPCS: 99214

== ENCOUNTER → 2024-01-25 11:52 | Outpatient (BNVA) | payer MEDICARE, SELFPAY | PROVIDERS: PCP Physician Assistant; Visit Provider Internal Medicine Nephrology | DX: E11.22 Type 2 diabetes mellitus with diabetic chronic kidney disease (principal); I12.9 Hypertensive chronic kidney disease with stage 1 through stage 4 chronic kidney disease, or unspecified chronic kidney disease; N18.31 Chronic kidney disease, stage 3a; E11.21 Type 2 diabetes mellitus with diabetic nephropathy | CPT/HCPCS: 99212 ==

== ENCOUNTER 2024-05-15 08:37 | Outpatient (REF) | payer MEDICARE, BC, SELFPAY ==
[2024-05-15 09:04] LABS: Hematocrit 39.6 % (37.0-47.0); Hemoglobin 12.7 g/dl (12.0-16.0); Mean Corpuscular HGB Conc 32.1 g/dl (31.0-35.0); Mean Corpuscular Hemoglobin 30.5 pg (27.0-33.0); Mean Corpuscular Volume 95.2 fL (80.0-98.0); Mean Platelet Volume 10.4 fL (9.4-12.3); Platelet Count 203 X10*3/uL (160-400); Red Blood Count 4.16 X10*6/uL (4.20-5.50); Red Cell Distribution Width 12.8 % (11.0-16.0); White Blood Count 7.6 X10*3/uL (4.8-10.8)
[2024-05-15 09:55] LABS: Glucose Fasting 58 mg/dL (60-99)
[2024-05-15 09:56] LABS: Albumin Level 4.2 g/dL (3.5-5.0); Anion Gap 13 (12-20); Aspartate Amino Transferase 35 U/L (5-31); Bilirubin Total 0.2 mg/dL (0.0-1.0); Blood Urea Nitrogen 46 mg/dL (9-16); Carbon Dioxide 24 mmol/L (22-29); Chloride 108 mmol/L (96-108); Cholesterol 147 mg/dL (<200); Estimated Glomerular Filt Rate 24; HDL Cholesterol 38 mg/dL (>40); LDL Cholesterol Calculated 81 mg/dL (<100); Potassium 4.2 mmol/L (3.3-5.1); Sodium 141 mmol/L (135-145); TSH reflex Free T4 4.37 uIU/mL (0.32-4.0); Triglycerides 141 mg/dL (<150)
[2024-05-15 10:08] LABS: Alanine Aminotransferase 23 U/L (0-31); Alkaline Phosphatase 78 U/L (39-117)
== END 2024-05-15 08:38 | disposition home or self-care (01) ==
LOC: HO.LAB 08:37
PROVIDERS: PCP Physician Assistant; Visit Provider Physician Assistant
DX: E11.21 Type 2 diabetes mellitus with diabetic nephropathy (principal); I50.32 Chronic diastolic (congestive) heart failure; E03.9 Hypothyroidism, unspecified
CPT/HCPCS: 36415; 80053; 80061; 84439; 84443; 85027

== ENCOUNTER 2024-05-17 10:12 | Outpatient (AMB) | payer MEDICARE, SELFPAY ==
--- NOTE | 2024-05-17 10:17 | MHC.PC.OV ---
Vital Signs 05/17/24 10:28 Height 5 ft 1 in Weight 153 lb 8 oz BMI 29.0 BP 150/60 H Blood Pressure Location Lt brachial Position Sitting Pulse 90 Pulse Source Pulse Oximeter Pulse Oximetry (%) 94 Oxygen Delivery Method Room Air Intake Visit Reasons: f/u DMII/ HTN Fusing Machine Feeder Required: No Accompanied by: Daughter Allergies Sulfa (Sulfonamide Antibiotics) Allergy (Mild, Verified 05/17/24 10:38) HIVES Medication List - Last Reconciled 05/17/24 by Todd Espinal PA-C ascorbic acid (vitamin C) ER 500 mg PO DAILY aspirin 81 mg PO DAILY atorvastatin 80 mg PO BEDTIME 90 days calcium carbonate (Calcium 600) 600 mg PO DAILY cetirizine 10 mg PO DAILY PRN cholecalciferol (vitamin D3) 10 mcg PO DAILY citalopram 20 mg PO DAILY 90 days clobetasol 0.05% 1 appl topical DAILY 30 days ferrous sulfate 325 mg PO DAILY insulin glargine 17 units (0.17 mL) subcut BEDTIME 30 days insulin lispro (Humalog U-100 Insulin) 8 units (0.08 mL) subcut TID 30 days insulin syringe-needle U-100 (BD Insulin Syringe Ultra-Fine) As directed isosorbide mononitrate ER 60 mg PO DAILY 90 days metoprolol succinate ER 50 mg PO DAILY nitroglycerin 0.4 mg sublingual Q5M PRN 4 days pantoprazole 20 mg PO QAM 90 days pen needle, diabetic (BD Ultra-Fine Short Pen Needle) once Daily primidone 50 mg PO TID 90 days Tobacco use date assessed: 11/10/23 Fall risk assessment: No Falls in past year Last assessed Fall Risk: 05/17/24 Dental Screening Dental Screen Date: 11/10/23 HPI f/u DMII/ HTN HPI Details Patient is an 84-year-old female here today a follow-up visit Patient has a past medical history significant for type 2 diabetes, hypertension, depression, AFIB, CAD( stent placement), COPD, CHF, GERD. .. Type 2 diabetes: Patient continues on insulin therapy and has been able to manage her blood sugars fairly well. Today's A1c is 7.2. Her diet has been much better as she is getting Meals on wheels Most recent fasting blood sugar low at 58. They report her low blood sugars are not frequent. Family attributes her low blood sugars to dietary indiscretion .. AFIB: Not on anticoagulation due to a severe head bleed the past, continues on aspirin daily. Followed by certified coder in [place] like to transfer care to [facility]. Currently under rate control with metoprolol. She also has a history of coronary artery disease and has a stent placed. Continues on high potency statin and aspirin. Will check her fasting lipid panel to ensure appropriate LDL below 70. .. Congestive heart failure : Has now follow-up with [facility]. Has a chronic history of Congestive heart failure though at this time no need for diuretics. Seems euvolemic on physical exam today. .. .. Chronic kidney disease stage III: Most recent GFR 24, creatinine 1.9. Was a bit dehydrated before lab work. Will add ANI inhibitor for better blood pressure control and renal protection.. Now followed by Nephrology. Recommendations have been made to consider farxiga or Jardiance unfortunately have been too expensive. Laboratory Tests 01/17/24 05/15/24 12:38 08:54 RBC 4.16 L Hgb 12.7 Creatinine 1.76 H 1.99 H Fasting Glucose 121 H 58 L* TSH 1.92 4.37 H PFSH Medical History DMII (diabetes mellitus, type 2) Atherosclerotic cardiovascular disease Surgical History History of ankle surgery Hx of hernia repair S/P HORTENCIA (total abdominal hysterectomy) Hx laparoscopic cholecystectomy Family History Mother Diabetes Father COPD (chronic obstructive pulmonary disease) Social History Housing: Apartment Alcohol intake: never Patient Tobacco Use Status: Former Tobacco user e-Cigarette/Vaping Use: Never Used service: No Current occupational status: retired Cognitive needs: No Hearing needs: No Vision needs: Yes Questionnaire PHQ-9 Over the last 2 weeks, how often have you been bothered by any of the following problems? 1. Little interest or pleasure in doing things: not at all 2. Feeling down, depressed, or hopeless: not at all 3. Trouble falling or staying asleep, or sleeping too much: not at all 4. Feeling tired or having little energy: not at all 5. Poor appetite or overeating: not at all 6. Feeling bad about yourself - or that you are a failure or have let yourself or your family down: not at all 7. Trouble concentrating on things, such as reading the newspaper or watching television: not at all 8. Moving or speaking so slowly that other people could have noticed. Or the opposite - being so fidgety or restless that you have been moving around a lot more than usual: not at all 9. Thoughts that you would be better off or of hurting yourself in some way: not at all Total score: 0 Depression Screening Interpretation: Negative Depression Screening Done: Yes 41479 - PHQ-9 Billing: Yes Source: Developed by Drs. Emigdio Webber, Cathy Will, Khris Bernal and colleagues, with an educational belle from [employer]. Thrive Questionnaire Date Thrive assessed: 05/17/24 I am a: Patient What is your living situation today?: I have a steady place to live Within the past 12 months, did the food you bought not last and you didn't have the money to get more?: Never true Within the past 12 months, did you worry whether your food would run out before you got money to buy more?: Never true Do you have trouble paying for medicines?: No Do you have trouble getting transportation to medical appointments?: No Do you have trouble paying your heating and electricity bill?: No Do you have trouble taking care of your child, family member or friend?: No Do you have trouble with day-to-day activities such as bathing, preparing meals, shopping, managing finances, etc.?: No Are you currently unemployed and looking for a job?: No Are you interested in more education?: No Please select the resources that you would like help with: None Currently or been in a relationship where the following occur: No concerns reported THRIVE Score: 0 AUDIT C Alcohol Use Questionnaire (AUDIT-C) 1. How often do you have a drink containing alcohol?: Never 3. How often do you have six or more drinks on one occasion?: Never Total Score: 0 SAI-7 AMB Questionnaire SAI-7 Date SAI - 7 assessed: 05/17/24 Feeling nervous, anxious, or on edge: 0 = Not at all Not being able to stop or control worryin = Not at all Worrying too much about different things: 0 = Not at all Trouble relaxin = Not at all Being so restless that it is hard to sit still: 0 = Not at all Becoming easily annoyed or irritable: 0 = Not at all Feeling afraid as if something awful might happen: 0 = Not at all Total SAI-7 score (0-4 normal; 5-9 mild; 10-14 moderate; 15-21 severe): 0 Source: Developed by Drs. Emigdio Webber, Cathy Will, Khris Bernal and colleagues, with an educational belle from [employer]. SAI-7 Assessment Billing SAI-7 Assessment Tool: SAI-7 Assessment 95732 (The patient's daughter reports that the patient is doing very well on citalopram.) Review of Systems Const Denies headache(s) Eyes Denies loss of vision ENT Denies vertigo, Denies dizziness, Denies headache(s) and Denies sore throat Card Denies chest pain, Denies leg edema and Denies lightheadedness Resp Denies cough, Denies hemoptysis and Denies wheezing GI Denies abdominal pain, Denies melena, Denies constipation, Denies diarrhea and Denies vomiting Denies urinary frequency, Denies dysuria and Denies urinary urgency Musc Denies arthralgias, Denies joint swelling, Denies numbness and Denies tingling Neuro Denies Abnormal speech present, Denies behavioral changes, Denies vertigo, Denies dizziness, Denies headache(s), Denies loss of vision, Denies memory loss, Denies numbness and Denies tingling Psych Denies anxiety, Denies behavioral changes, Denies depression, Denies memory loss and Denies panic attacks Paul/Lymph Denies easy bleeding and Denies easy bruising Aller/Immun Denies wheezing Physical exam (Primary Care) Vital Signs: Last Vital Signs Pulse 90 05/17/24 10:28 BP 150/60 H 05/17/24 10:28 Pulse Ox 94 05/17/24 10:28 Oxygen Delivery Method Room Air 05/17/24 10:28 BMI result Body Mass Index 29.0 Tobacco/Smoking Status: Tobacco use Status Tobacco use date assessed 11/10/23 05/17/24 10:18 Patient Tobacco Use Status Former Tobacco user 05/17/24 10:18 e-Cigarette/Vaping Use Never Used 05/17/24 10:18 PHQ-9: PHQ-9 Score PHQ-9: Total score 0 05/17/24 10:39 Depression Screening Interpretation: Negative Thrive Assessment: Date of Thrive Assessment Date Thrive assessed 05/17/24 05/17/24 10:18 Currently or been in a relationship where the following occur: No concerns reported Const General: healthy appearing, no acute distress, alert and awake Nutritional Appearance: well nourished Orientation/consciousness: oriented to person, oriented to place and oriented to time HENMT Ears: TM's normal bilaterally General nose exam: Normal nasal mucous membranes and turbinates present Eyes Conjunctivae: conjunctivae normal Sclerae: sclerae normal Pupils: Equal, round and reactive pupils present Neck Neck: Yes no lymphadenopathy and Yes no JVD Thyroid: Thyroid normal Carotids: no bruits Resp Effort & Inspection: normal respiratory effort and not tachypneic Auscultation: no crackles, no rales, no rhonchi and no wheezes Cardio Rate: regular rate Rhythm: regular rhythm Heart sounds: no murmurs and normal S1 and S2 GI Palpation (GI): Soft to palpation, nontender, no hepatomegaly and no splenomegaly Auscultation: normal bowel sounds Skin General skin exam: no rashes or lesions noted and dry skin Neuro General: oriented to person, oriented to place and oriented to time Cranial nerves: Yes Equal, round and reactive pupils present Speech: No Abnormal speech present Gait exam (Neuro): Normal gait present Motor exam (neuro): no tremor noted Extrem Right upper extremity: full ROM Left upper extremity: full ROM Right lower extremity: full ROM; no edema Left lower extremity: full ROM; no edema Psych Mental Status: mental status grossly normal Speech and movement: Normal speech and movement present Affect: normal affect Attitude: cooperative Thought process: Normal thought process present Office Procedures Flu Questionnaire Does the patient have a severe egg allergy?: No Does the patient have severe life threatening allergies?: No Does the patient have a fever or illness today?: No Has the patient ever had Guillain-[place] Syndrome?: No Has the patient ever had any past reaction to a flu shot?: No Results AMB Hemoglobin A1c AMB Hemoglobin A1c 7.2 % Last Edit by DAVID Hunt on 05/17/24 10:40 Immunizations Fluarix Triv [id number] (PF) 45 mcg (15 mcg x 3)/0.5 mL IM syringe Performing Provider: Todd Espinal PA-C Performing Location: [facility] Administered by: DAVID Hunt on 05/17/24 11:00 Dose Route Admin Location Dispensed Lot Number Expiration Date [place] Osteopathic Medicine Teacher 0.5 mL IM Right Deltoid 0.5 mL [id number] 11/19/24 [id number] [employer] VIS Given Date VIS Provided VIS Publication Date 05/17/24 Single Vaccine 20 Eligibility Eligibility Date Funding Source Not VFC Eligible 05/17/24 Private pneumoc 20-biju conj-dip cr(PF) 0.5 mL IM syringe Performing Provider: Todd Espinal PA-C Performing Location: [facility] Administered by: DAVID Hunt on 05/17/24 11:00 Dose Route Admin Location Dispensed Lot Number Expiration Date [place] Osteopathic Medicine Teacher 0.5 mL IM Right Deltoid 0.5 mL [id number] 08/21/25 [employer] VIS Given Date VIS Provided VIS Publication Date 05/17/24 Single Vaccine 21 Eligibility Eligibility Date Funding Source Not VFC Eligible 05/17/24 Private Results Reviewed Results Reviewed: Laboratory Last Values Hgb A1c (Clinic) 7.2 % (4.0-6.0) H 05/17/24 10:40 Coding Level of Care Code Est Pt Level 4 (11676) Diagnoses Type 2 diabetes mellitus with hyperglycemia, with long-term current use of insulin E11.65; Z79.4 Diabetes mellitus terminal 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 insulin use: with senior care use Diabetes mellitus complication status: with hyperglycemia Stage 3a chronic kidney disease N18.31 Chronic kidney disease stage 3 subtype: stage 3a (GFR 45-59) Chronic diastolic congestive heart failure, NYHA class 3 I50.32 Congestive heart failure type: diastolic Congestive heart failure chronicity: chronic Primary hypertension I10 Hypertension type: primary hypertension Persistent atrial fibrillation I48.19 Atrial fibrillation type: persistent (not longstanding) Tremor R25.1 Additional Codes SAI-7 Assessment Billing - SAI-7 Assessment Tool: SAI-7 Assessment 07213 ([id number]) PHQ-9 - 38884 - PHQ-9 Billing: Yes ([id number]) Assessment & Plan Assessment & Plan (1) DMII (diabetes mellitus, type 2): Code(s): E11.9 - Type 2 diabetes mellitus without complications Category: Medical Qualifiers: Diabetes mellitus senior care insulin use: with terminal 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 use Diabetes mellitus complication status: with hyperglycemia Qualified Code(s): E11.65 - Type 2 diabetes mellitus with hyperglycemia; Z79.4 - [facility] (current) use of insulin Plan: Patient's type 2 diabetes well controlled. Does have intermittent episodes of hypoglycemia related to her diet. Goal A1c is to be below 7.5 due to her age and comorbidities. (2) CKD (chronic kidney disease) stage 3, GFR 30-59 ml/min: Code(s): N18.30 - Chronic kidney disease, stage 3 unspecified Category: Medical Qualifiers: Chronic kidney disease stage 3 subtype: stage 3a (GFR 45-59) Qualified Code(s): N18.31 - Chronic kidney disease, stage 3a Plan: Patient has CKD remains fairly stable. Most recent GFR at 24 reports she was a bit dehydrated due to having a fast. Will continue to abstain from any nephrotoxins. Will add on lisinopril to help with renal protection. (3) CHF (congestive heart failure), NYHA class III: Code(s): I50.9 - Heart failure, unspecified Category: Medical Qualifiers: Congestive heart failure type: diastolic Congestive heart failure chronicity: chronic Qualified Code(s): I50.32 - Chronic diastolic (congestive) heart failure Plan: Patient's Congestive heart failure has been stable. No overt signs of decompensation. (4) HTN (hypertension): Code(s): I10 - Essential (primary) hypertension Category: Medical Qualifiers: Hypertension type: primary hypertension Qualified Code(s): I10 - Essential (primary) hypertension Plan: Patient's blood pressure slightly elevated today in office. Will add on low-dose lisinopril for better blood pressure control. Goal blood pressures to be below 140/90 (5) Afib: Code(s): I48.91 - Unspecified atrial fibrillation Category: Medical Qualifiers: Atrial fibrillation type: persistent (not longstanding) Qualified Code(s): I48.19 - Other persistent atrial fibrillation Plan: Patient continues on metoprolol for rate control. Continues to follow [facility]. Not on anticoagulation due to history of bleeding. (6) Tremor: Comment: benign essential Code(s): R25.1 - Tremor, unspecified Category: Medical Plan: Patient's family report Alejandra his tremor has gotten a bit worse usually related to physical activity. Will increase her primidone dose to 125 b.i.d. 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 Panel Fast 6 Months I50.32 - Chronic diastolic (congestive) heart failure Pneumococcal 20 Immunization Today I25.10 - Atherosclerotic heart disease of [place] coronary artery without angina pectoris, Z23 - Encounter for immunization Complete Blood Count no Diff 6 Months I50.32 - Chronic diastolic (congestive) heart failure Lipid Panel 6 Months I25.10 - Atherosclerotic heart disease of [place] coronary artery without angina pectoris Influenza [id number] Immunization Today Z23 - Encounter for immunization Medications: New primidone 125 mg PO BID 90 days 180 tabs 1RF R25.1 - Tremor, unspecified lisinopril 5 mg PO DAILY 90 days 90 tabs 1RF E11.21 - Type 2 diabetes mellitus with diabetic nephropathy Changed From insulin syringe-needle U-100 (BD Insulin Syringe Ultra-Fine) As directed 100 ea 0RF E11.65 - Type 2 diabetes mellitus with hyperglycemia, 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
[2024-05-17 10:28] VITALS: BP 150/60; PULSE 90; O2SAT 94; BMI 29.0
== END 2024-05-17 11:03 | disposition home or self-care (01) ==
PROVIDERS: PCP Physician Assistant; Visit Provider Physician Assistant
DX: E11.65 Type 2 diabetes mellitus with hyperglycemia (principal); Z79.4 Long term (current) use of insulin; N18.31 Chronic kidney disease, stage 3a; I50.32 Chronic diastolic (congestive) heart failure; I48.19 Other persistent atrial fibrillation; I10 Essential (primary) hypertension; R25.1 Tremor, unspecified; Z23 Encounter for immunization; I25.10 Atherosclerotic heart disease of native coronary artery without angina pectoris

== ENCOUNTER → 2024-05-17 10:12 | Outpatient (BNVA) | payer MEDICARE, SELFPAY | PROVIDERS: PCP Physician Assistant; Visit Provider Physician Assistant | DX: E11.22 Type 2 diabetes mellitus with diabetic chronic kidney disease (principal); I13.0 Hypertensive heart and chronic kidney disease with heart failure and stage 1 through stage 4 chronic kidney disease, or unspecified chronic kidney disease; I50.9 Heart failure, unspecified; N18.30 Chronic kidney disease, stage 3 unspecified; F41.9 Anxiety disorder, unspecified; F32.A Depression, unspecified; I48.91 Unspecified atrial fibrillation; I25.10 Atherosclerotic heart disease of native coronary artery without angina pectoris; J44.9 Chronic obstructive pulmonary disease, unspecified; K21.9 Gastro-esophageal reflux disease without esophagitis; E11.65 Type 2 diabetes mellitus with hyperglycemia; N18.31 Chronic kidney disease, stage 3a; I48.19 Other persistent atrial fibrillation; R25.1 Tremor, unspecified; Z23 Encounter for immunization; Z79.4 Long term (current) use of insulin | CPT/HCPCS: 83036; 90471; 90472; 90656; 90677; 96127; 99212 ==

== ENCOUNTER 2024-06-19 11:15 | Outpatient (REF) | payer MEDICARE, SELFPAY ==
[2024-06-19 12:15] LABS: Anion Gap 14 (12-20); Blood Urea Nitrogen 44 mg/dL (9-16); Carbon Dioxide 21 mmol/L (22-29); Chloride 108 mmol/L (96-108); Estimated Glomerular Filt Rate 29; Potassium 4.7 mmol/L (3.3-5.1); Sodium 138 mmol/L (135-145)
--- OUTSIDE RECORDS SUMMARY | 2024-06-19 12:32 | XMS_ITS | Clinical Summary ---
Author Organization [facility] Address [address] [facility] [address] [place] [address] Phone Care Team Providers Care Fountain Pen Turner Name Role Phone JenarehanaLori Stephenson DO Primary Care Pro vider Family History Medical History Relation Comments Diabetes Mother Heart disease Mother Hypertension Mother Cancer Sibling breast CA Relation Status Comments Father Unknown Mother Unknown Sibling Social History Tobacco Use Types Packs/Day Years Used Date Smoking Tobacco: Former Comments:Smoking History Inf o:Every day Alcohol Use Standard Drinks/Week Comments No 0 (1 standard drink = 0.6 oz pur e alcohol) Comments Unknown Sex and Gender Information Value Date Recorded Sex Assigned at Not on file Legal Sex Female 4:50 PM EST Gender Identity Not on file Sexual Orientation Not on file Last Filed Vital Signs Vital Sign Reading Time Taken Comments Blood Pressure 120/70 11/02/2018 12:01 PM EDT Pulse 90 11/02/2018 12:01 PM EDT Temperature - - Respiratory Rate - - Oxygen Saturation 98% 11/02/2018 12:01 PM EDT Inhaled Oxygen Concentration - - Weight 70.8 kg (156 lb) 11/02/2018 12:01 PM EDT Height 154.9 cm (5' 1 ) 11/02/2018 12:01 PM EDT Body Mass Index 29.48 11/02/2018 12:01 PM EDT Plan of Treatment Health Maintenance Due Date Last Done Comments Pneumococcal Vaccine: 65+ Ye ars (1 of 2 - PCV) 1946 Influenza Vaccine (#1) 2024 Hepatitis B Vaccine Aged Out No longe r eligible based on patient's age to complete this topic Insurance MEDICARE [facility] MEDICARE [facility] Care Teams Fountain Pen Turner Relationship Specialty Start Date End Date Lori Acuna DO PCP - General Internal Medicine 09/09/20
--- OUTSIDE RECORDS SUMMARY | 2024-06-19 12:33 | XMS_ITS | Clinical Summary ---
Author Organization [facility] [employer] Address [address] [place] [address] Phone Care Team Providers Care Supervisor Incising Name Role Phone Alexandra Bravo MD Primary Care Provider [phone] Allergies Active Allergy Reactions Criticality Noted Date Comments Sulfa (Sulfonamide Antibiotics) 06/23 Medications Medication Sig Dispensed Refills Start Date End Date Status ASCORBIC ACID, VITAMIN C, ORAL Take by mouth. Activ e multivitamin (LISANDRA-PLUS E ORAL) Take by mouth. Ac tive insulin syringe-needle U-100 1 mL 31 gauge x 5/16 syringe 1 Each by Does not apply route 3 times daily. 07/29/2022 Active insulin syringe-needle U-100 (BD Insulin Syringe Ultra-Fine) 0.3 mL 31 gauge x 5/16 syringe USE FOUR TIMES DAILY TO ADMINISTER INSULIN 01/06/2021 Active primidone (MYSOLINE) 50 mg tablet Take 1 Tablet by mouth 3 times daily. 01/05/2022 Active pantoprazole (PROTONIX) 20 mg EC tablet Take 1 Tablet by mouth every morning (before breakfast). 09/17/2022 Active nitroglycerin (NITROSTAT) 0.[address] 1 Tab under the tongue every 5 minutes as needed for Chest pain. 10/03/2018 Active metoprolol succinate (TOPROL-XL) 50 mg 24 hr tablet Take 1 Tablet by mouth daily. 01/05/2022 Active isosorbide mononitrate (IMDUR) 60 mg 24 hr tablet Take 1 Tablet by mouth daily. 01/05/2022 Active insulin glargine,hum.rec.anlo g (Basaglar KwikPen U-100 Insulin) 100 unit/mL (3 mL) injection pen Inject 17 Units into the skin at bedtime. Dx Code E11.22 01/13/2023 Active insulin aspart (NovoLOG) 100 unit/mL injection Inject 8 Units as directed 3 times daily (with meals). 09/29/2022 Active glucagon (Gvoke HypoPen 1-Pack) 0.5 mg/0.1 mL auto-injector Inject 1 Dose into the skin as needed for Other (severe hypoglycemia). 09/19/2020 Active citalopram (CeleXA) 20 mg tablet Take 1 Tablet by mouth daily. 01/05/2022 Active cetirizine (ZyrTEC) 10 mg capsule Take 1 Cap by mouth daily. 02/03/2018 Active atorvastatin (LIPITOR) 80 mg tablet Take 1 Tablet by mouth at bedtime. 10/29/2022 Active aspirin 81 mg EC tablet Take 1 Tab by mouth daily. 02/03/2018 Active lancets lancets Apply 1 Each topically 4 times daily. 02/03/2018 Active ferrous sulfate (IRON ORAL) Take by mouth. Active calcium carbonate (CALCARB 600 ORAL) Take by mouth. Ac tive CHOLECALCIFEROL, VITAMIN D3, ORAL Take by mouth. Acti ve glucose blood test strip Use one strip four times daily to check blood sugars 02/03/2018 Active Active Problems Problem Noted Date Diagnosed Date Pulmonary nodules 05/11/2024 Overview (05/11/2024): 02/02/16: Multiple nodules, largest was 5mm in left lower lobe pleural - unchanged as of August 2018 Subclinical hypothyroidism 09/23/2022 Osteopenia 09/18/2022 History of alcohol abuse 09/17/2022 Metatarsal fracture 01/05/2022 Overview (05/11/2024): 01/11 right 5th metatarsal fracture CKD (chronic kidney disease) stage 3, GFR 30-59 ml/min 11/01/2020 Microalbuminuria 11/01/2020 Bilateral carotid artery stenosis 09/25/2018 Diabetic polyneuropathy asso ciated with type 2 diabetes mellitus 08/23/2018 Centrilobular emphysema 06/16/2017 Paroxysmal A-fib 05/24/2017 Moderate episode of recurrent major depressive d isorder 02/28/2017 Renal mass, right 02/01/2017 Overview (05/11/2024): Enlarging from 2019 - Recommend MRI renal with IV contrast to evaluate for malignancy Heart failure with preserved ejection fraction 0 09/29/2016 Type II diabetes mellitus with renal manifestati ons 07/26/2016 CAD (coronary artery disease) 07/09/2011 Overview (05/11/2024): Cath 07/2009 mod severe RCA and LAD disease treated medically Last echo 04/2011 EF 65-70%, elevated LA pressures, LA mildly dilated, borderline pulm HTN Justine MIBI 04/2011 no perfusion defects Hyperlipidemia 07/09/2011 Hypertension 07/09/2011 Tremor 07/09/2011 Immunizations Name Administration Dates Next Due Influenza trivalent, 0.5mL ( Fluzone High-dose) 65yo and older 03/25/2022,03/12/2021,03/02/2019,03/03,03/15/2017,02/16/2016,01/09/2015 Moderna SARS-CoV-2 COVID-19, mRNA, LNP-S, preservative free 04/01/2021 Pneumococcal conjugate 13 va lent (Prevnar 13, PCV13) 2mo and older 12/15/2015 Pneumococcal polysaccharide 23 valent (Pneumovax 23) 2yo and older 02/14/2015 Td Tetanus diptheria (Tdvax) 7yo and older 03/12/2021 Surgical History Surgery Date Site/Laterality Comments CHOLECYSTECTOMY PROCEDURE: HISTORICAL CHOLECYSTECTOMY HERNIA REPAIR PROCEDURE: HISTORICAL HERNIA REPAIR/VALERIY BREAST SURGERY Right PROCEDURE: [place] UNLISTED PROCEDURE BREAST; COMMENT: cyst HYSTERECTOMY 05/23/1970 PROCEDURE: HISTORICAL HYSTERECTOMY Medical History Medical History Date Comments Historical Medical DX 07/09/2011 DX:Hyperli pidemia LDL goal < 70 CAD (coronary artery disease) 07/09/2011 DX :CAD (coronary artery disease); COMMENT: dr verdugo Diastolic CHF, chronic (CMS/HCC) 07/09/2011 DX:Diastolic CHF, chronic (HCC) Tremor 07/09/2011 DX:Tremor Carotid artery stenosis DX:Carot id artery stenosis Abnormal CT scan, chest DX:Abnor mal CT scan, chest Macrocytosis without anemia DX:M acrocytosis without anemia Microalbuminuria 11/01/2020 DX:Microalbumin uria CKD (chronic kidney disease) stage 3, GFR 30-59 ml/min ([facility]) 11/01/2020 DX:CKD (chronic kidney dise ase) stage 3, GFR 30-59 ml/min ([facility]) Metatarsal fracture 01/05/2022 DX:Metatarsa l fracture; COMMENT: 01/11 right 5th metatarsal fracture Family History Medical History Relation Name Comments Alcohol abuse Brother x 5 Alcohol abuse Father +smoker & tar 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 Heart attack Mother fatal, diabetes Breast cancer Sister x 1 40s, COPD Relation Name Status Comments Brother x 5 Father Mother Sister x 1 Social History Tobacco Use Types Packs/Day Years Used Date Smoking Tobacco: Former Cigarettes 0.5 27 0 05/23/1957 - 05/23/1984 Smokeless Tobacco: Never Alcohol Use Standard Drinks/Week Comments No 0 (1 standard drink = 0.6 oz pur e alcohol) Sex and Gender Information Value Date Recorded Sex Assigned at Not on file Gender Identity Not on file Sexual Orientation Not on file Obstetrics History Last Filed Vital Signs Vital Sign Reading Time Taken Comments Blood Pressure 133/61 09/29/2022 2:23 PM EDT Aut o Cuff Pulse 65 09/29/2022 2:23 PM EDT Temperature - - Respiratory Rate - - Oxygen Saturation - - Inhaled Oxygen Concentration - - Weight 67 kg (147 lb 9.6 oz) 09/29/2022 2:23 PM EDT Height 154.9 cm (5' 1 ) 09/29/2022 2:23 PM EDT Body Mass Index 27.89 09/29/2022 2:23 PM EDT Plan of Treatment Health Maintenance Due Date Last Done Comments Diabetes: Annual Foot Exam 1948 Diabetes: Annual Retina Eye Exam 1950 Zoster Vaccines (1 of 2) 1988 RSV Immunization Patients 60+ Years Old (1 - 1-dose 75+ series) 2013 Depression Screening 05/01/2022 Falls Risk Assessment 05/01/2022 Social Influencers of Health Screening 05/01/2022 Diabetes: Blood Sugar Control Test (HGBA1C) 03/03/2023 09/01/2022 Medicare Annual Wellness Visit 03/25/2023 03/25/2022 Hypertension/CHF/CAD Annual BMP Blood Test 09/23/2023 09/22/2022 COVID-19 Vaccine ( season) 2024 04/01/2021, 08/28/2020, 07/31/2020 Influenza Vaccine (#1) 2024 , 03/25/2022, 03/12/2021, Additional history exists Cholesterol Screening (Lipid Panel) 11/16/2026 11/16/2021 Osteoporosis Screening (Bone Density Screening) 12/08/2026 12/08/2016 DTaP,Tdap,and Td Vaccines (2 - Td or Tdap) 03/12/2031 03/12/2021 Pneumococcal Vaccine: 65+ Years Completed 12/15/2015, 02/14/2015 HIB Vaccines Aged Out No longer eligi ble based on patient's age to complete this topic HPV Vaccines Aged Out No longer eligi ble based on patient's age to complete this topic Hepatitis A Vaccines Aged Out No long er eligible based on patient's age to complete this topic Hepatitis B Vaccines Aged Out No long er eligible based on patient's age to complete this topic IPV Vaccines Aged Out No longer eligi ble based on patient's age to complete this topic MMR Vaccines Aged Out No longer eligi ble based on patient's age to complete this topic Meningococcal ACWY Vaccine Aged Out N o longer eligible based on patient's age to complete this topic RSV Immunization Patients Under 20 months Aged Out No longer eligible based on patient's age to complete this topic Varicella Vaccines Aged Out No longer eligible based on patient's age to complete this topic Procedures Procedure Name Priority Date/Time Associated Diagnosis Comments ANNUAL BMP BLOOD TEST Routine 09/22/2022 HEMOGLOBIN A1C Routine 09/01/2022 LIPID PANEL Routine 11/16/2021 DXA BONE DENSITY STUDY 1+ SITS AXIAL SKEL Routine 12/08/2016 4:04 PM EDT Other specified disorders of bone density and structure, unspecified site from Last 3 Months or Most Recently Relevant to Health Maintenance Results * Annual BMP Blood Test (09/22/2022) Pathologist [facility] Annual BMP Blood Test abstracted Historical Provider [facility] * (ABNORMAL) Hemoglobin A1c (09/01/2022) [facility] Hemoglobin A1C 7.3(A) 6.5 % Blood Venous blood specimen / Unknown Historical Provider LAB BLOOD ORDERAB LES * Lipid panel (11/16/2021) [facility] LDL/HDL Ratio 3 0 - 4 Triglycerides 127 0 - 150 mg/dL Cholesterol 152 0 - 200 mg/dL HDL 50 40 mg/dL LDL Cholesterol 77 0 - 100 mg/dL Blood Venous blood specimen / Unknown Historical Provider LAB BLOOD ORDERAB LES * DXA BONE DENSITY STUDY 1+ SITS AXIAL SKEL (12/08/2016 4:04 PM EDT) Anatomical Region Laterality Modality Bone Densitometr y 11/15/2016 11:3 6 AM EDT Narrative 12/08/2016 5:39 PM EDT DEXA SCAN: Lumbar Spine T-score is -1.2. ?? (SD relative to 20-29 y/o adult) Z-score is 1.4. ??(SD relative to age matched peers) This is considered osteopenia by WHO criteria. Left Hip T-score is -1.9. Z-score is 0.3. This is considered osteopenia by WHO criteria. Comparison exam(s): Compared with 10/24/2014 bone mineral density is unchanged. IMPRESSION: Osteopenia by WHO criteria. This patient has a 31% risk of major osteoporotic fracture and a 9.0% risk of hip fracture over the next 10 years. (World Health Organization Fracture Risk Assessment) The [facility] Department of Internal Medicine recommends using National Osteoporosis Foundation (NOF) guidelines in treatment decisions related to osteoporosis. NOF guidelines suggest considering treatment for postmenopausal women and men aged 50 or older presenting with the following: History of hip or vertebral fracture. T-score = -2.5 (DXA) at the femoral neck, total hip, or spine, after appropriate evaluation to exclude secondary causes. Low bone mass (T-score between -1.0 and -2.5 at the femoral neck or spine) AND a 10-year probability of a hip fracture = 3% OR a 10-year probability of a major osteoporosis-related fracture = 20% based on the [place]-adapted WHO algorithm Please note that all treatment decisions require clinical judgment and consideration of individual patient factors, including patient preferences, co-morbidities, previous drug use, risk factors not captured in the FRAX model (e.g., frailty, falls, vitamin D deficiency, increased bone turnover, interval significant decline in bone density) and possible under- or over-estimation of fracture risk by FRAX. Optional alternative screening schedule based on ilsa Morrison., [facility] June 10, 2011 for patients with osteopenia (based on hip BMD T-score) is as follows: * ??advanced osteopenia (T scores -2.00 to -2.49), BMD testing every year * ??moderate osteopenia (T scores -1.50 to -1.99), BMD testing every 5 years mild osteopenia or normal BMD (T scores -1.50 and higher), BMD testing every 15 years Procedure Note Yariel Gomez MD - 06/24/2023 DEXA SCAN: Lumbar Spine T-score is -1.2. (SD relative to 20-29 y/o adult) Z-score is 1.4. (SD relative to age matched peers) This is considered osteopenia by WHO criteria. Left Hip T-score is -1.9. Z-score is 0.3. This is considered osteopenia by WHO criteria. Comparison exam(s): Compared with 10/24/2014 bone mineral density isunchanged. IMPRESSION: Osteopenia by WHO criteria. This patient has a 31% risk of majorosteoporotic fracture and a 9.0% risk of hip fracture over the next 10 years. (WorldHealth Organization Fracture Risk Assessment) The [facility] Department of Internal Medicine recommendsusing National Osteoporosis Foundation (NOF) guidelines in treatment decisions related toosteoporosis. NOF guidelines suggest considering treatment for postmenopausal women and menaged 50 or older presenting with the following: History of hip or vertebral fracture. T-score = -2.5 (DXA) at the femoral neck, total hip, or spine, afterappropriate evaluation to exclude secondary causes. Low bone mass (T-score between -1.0 and -2.5 at the femoral neck or spine)AND a 10-year probability of a hip fracture = 3% OR a 10-year probability of a majorosteoporosis-related fracture = 20% based on the [place]-adapted WHO algorithm Please note that all treatment decisions require clinical judgment andconsideration of individual patient factors, including patient preferences, co- morbidities,previous drug use, risk factors not captured in the FRAX model (e.g., frailty, falls, vitaminD deficiency, increased bone turnover, interval significant decline in bone density) andpossible under- or over-estimation of fracture risk by FRAX. Optional alternative screening schedule based on lisa Morrison., [facility] for patients with osteopenia (based on hip BMD T-score) is as follows: * advanced osteopenia (T scores -2.00 to -2.49), BMD testing every year * moderate osteopenia (T scores -1.50 to -1.99), BMD testing every 5years mild osteopenia or normal BMD (T scores -1.50 and higher), BMD testingevery 15 years Lori Acuna DO [facility] DXA P ROCEDURES from Last 3 Months or Most Recently Relevant to Health Maintenance Care Teams Supervisor Incising Relationship Specialty Start Date End Date Alexandra Bravo MD [address] [place] [address] PCP - General Internal Medicine 10/16/20
== END 2024-06-19 11:16 | disposition home or self-care (01) ==
LOC: HO.LAB 11:15
PROVIDERS: PCP Physician Assistant; Visit Provider Internal Medicine Nephrology
DX: N18.31 Chronic kidney disease, stage 3a (principal)
CPT/HCPCS: 36415; 80051; 82565; 84520

== ENCOUNTER 2024-06-27 13:57 | Outpatient (AMB) | payer MEDICARE, SELFPAY ==
--- NOTE | 2024-06-27 14:09 | HO.NEPHOV_ITS ---
Vital Signs 06/27/24 14:26 Height 5 ft 1 in Weight 155 lb 6 oz BMI 29.4 BP 140/60 H Blood Pressure Location Rt brachial Position Sitting Pulse 68 Pulse Source Pulse Oximeter Pulse Oximetry (%) 98 Oxygen Delivery Method Room Air Intake Visit Reasons: 4 mon follow up-[facility] Interior Design Director Required: No Accompanied by: Other Relationship Allergies Sulfa (Sulfonamide Antibiotics) Allergy (Mild, Verified 06/27/24 14:23) HIVES HPI Comments Details: 82-year-old female with a type 2 diabetes over 40 years, hypertension, CAD, CHF among multiple other medical issues was seen in follow up for CKD. She is on insulin & has been able to manage her blood sugars fairly well. She had CAD & undergone angioplasty and stenting of her coronaries. She has A Fib but not on anticoagulation due to H/O intracranial bleed. She has history of Congestive heart failure but not on Farxiga ( expensive). She is hypertensive and her BP is well controlled. She is not on ACEI/ARB. She does not take NSAID's regularly. She has no urinary symptoms, new bone or back pain, edema, hematuria. Her daughter was there during this encounter. She denies nausea, vomiting, diarrhea, PND, orthopnea or any other systemic complaints [facility] Medical History DMII (diabetes mellitus, type 2) Atherosclerotic cardiovascular disease Surgical History History of ankle surgery Hx of hernia repair S/P HORTENCIA (total abdominal hysterectomy) Hx laparoscopic cholecystectomy Family History Mother Diabetes Father COPD (chronic obstructive pulmonary disease) Social History Housing: Apartment Alcohol intake: never Patient Tobacco Use Status: Former Tobacco user e-Cigarette/Vaping Use: Never Used service: No Current occupational status: retired Cognitive needs: No Hearing needs: No Vision needs: Yes Review of Systems Const All systems reviewed & are unremarkable except as noted in HPI and below Physical Exam Vital Signs: Last Vital Signs Pulse 68 06/27/24 14:26 BP 140/60 H 06/27/24 14:26 Pulse Ox 98 06/27/24 14:26 Oxygen Delivery Method Room Air 06/27/24 14:26 BMI result Body Mass Index 29.4 Const General: comfortable and no acute distress Orientation/consciousness: patient oriented x3 HEENT Head: Yes normocephalic Mouth: Normal oral and palatal mucosa present Eyes EOM: EOMs intact bilaterally Neck Neck: Yes supple Resp Auscultation: clear to auscultation bilaterally Cardio Jugular venous distension: no JVD Rate: regular rate GI Palpation (GI): Soft to palpation Auscultation: normal bowel sounds General: Yes no CVA tenderness Back/Spine/Pelvis Back: no CVA tenderness Skin General skin exam: no rashes or lesions noted Neuro General: patient oriented x3 and moves all extremities Extrem General: Yes no pedal edema Results Reviewed Nephrology Results: Hgb 12.7 g/dl (12.0-16.0) 05/15/24 WBC 7.6 X10*3/uL (4.8-10.8) 05/15/24 Plt Count 203 X10*3/uL (160-400) 05/15/24 Sodium 138 mmol/L (135-145) 06/19/24 Potassium 4.7 mmol/L (3.3-5.1) 06/19/24 Chloride 108 mmol/L (96-108) 06/19/24 Carbon Dioxide 21 mmol/L (22-29) L 06/19/24 BUN 44 mg/dL (9-16) H 06/19/24 Creatinine 1.67 mg/dL (0.5-1.4) H 06/19/24 Calcium 10.0 mg/dL (8.4-10.2) 05/15/24 Assessment & Plan Assessment & Plan (1) Diabetic nephropathy: Code(s): E11.21 - Type 2 diabetes mellitus with diabetic nephropathy Category: Medical Qualifiers: Diabetes mellitus type: type 2 Qualified Code(s): E11.21 - Type 2 diabetes mellitus with diabetic nephropathy (2) CKD (chronic kidney disease) stage 3, GFR 30-59 ml/min: Code(s): N18.30 - Chronic kidney disease, stage 3 unspecified Category: Medical Qualifiers: Chronic kidney disease stage 3 subtype: stage 3a (GFR 45-59) Qualified Code(s): N18.31 - Chronic kidney disease, stage 3a (3) HTN (hypertension): Code(s): I10 - Essential (primary) hypertension Category: Medical Qualifiers: Hypertension type: primary hypertension Qualified Code(s): I10 - Essential (primary) hypertension Ulysses Roberts has 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 She has diabetes mellitus over 40 years. Her A1c is still over 7. She is proteinuric. She has no hypoglycemia. Her blood pressure is at goal. She has history of congestive heart failure. She is not on any ANI inhibitor or ARB. She is not clear why she has not been on those medications. We ideally should start her on Farxiga/Jardiance but expensive for patient and cant afford. She should keep her blood sugar under better control. She should be on a low-sodium diet. She should avoid nonsteroidal anti-inflammatory medications. Follow-up laboratory studies were ordered. All her and her daughter's questions were answered. Follow-up given Orders: Orders Blood Urea Nitrogen 6 Months E11.21 - Type 2 diabetes mellitus with diabetic nephropathy, N18.31 - Chronic kidney disease, stage 3a Electrolytes 6 Months E11.21 - Type 2 diabetes mellitus with diabetic nephropathy, N18.31 - Chronic kidney disease, stage 3a Creatinine 6 Months E11.21 - Type 2 diabetes mellitus with diabetic nephropathy, N18.31 - Chronic kidney disease, stage 3a Coding Level of Care Code Est Pt Level 4 (59120) Diagnoses Diabetic nephropathy associated with type 2 diabetes mellitus E11.21 Diabetes mellitus type: type 2 Stage 3a chronic kidney disease N18.31 Chronic kidney disease stage 3 subtype: stage 3a (GFR 45-59) Primary hypertension I10 Hypertension type: primary hypertension
[2024-06-27 14:26] VITALS: BP 140/60; PULSE 68; O2SAT 98; BMI 29.4
--- OUTSIDE RECORDS SUMMARY | 2024-06-27 15:16 | XMS_ITS | Clinical Summary ---
Author Organization [facility] [employer] Address [address] [place] [address] Phone Care Team Providers Care Recovery Analyst Name Role Phone Alexandra Bravo MD Primary Care Provider [phone] Allergies Active Allergy Reactions Criticality Noted Date [...] HISTORICAL HERNIA REPAIR/VALERIY BREAST SURGERY Right PROCEDURE: [place] UNLISTED PROCEDURE BREAST; COMMENT: cyst HYSTERECTOMY 05/23/1970 [...] kidney disease) stage 3, GFR 30-59 ml/min ([facility]/HCC) 11/01/2020 DX:CKD (chronic kidney dise ase) stage 3, GFR 30-59 ml/min ([facility]) Metatarsal fracture 01/05/2022 DX:Metatarsa l fracture; COMMENT: 01/11 right 5th metatarsal fracture Family History Medical History Relation Name Comments Alcohol abuse Brother x 5 Alcohol abuse Father +smoker & tar fast food worker = COPD? Heart attack Mother fatal, diabetes [...] * Annual BMP Blood Test (09/22/2022) Pathologist [facility] Annual BMP Blood Test abstracted Historical Provider [facility] * (ABNORMAL) Hemoglobin A1c (09/01/2022) [facility] [address] Hemoglobin A1C 7.3(A) 6.5 % Blood Venous blood specimen / Unknown Historical Provider LAB BLOOD ORDERAB LES * Lipid panel (11/16/2021) [facility] [address] LDL/HDL Ratio 3 0 - 4 Triglycerides [...] (World Health Organization Fracture Risk Assessment) The [facility] Department of Internal Medicine recommends using National [...] alternative screening schedule based on ilsa Morrison., [facility] June 10, 2011 for patients with osteopenia [...] years. (WorldHealth Organization Fracture Risk Assessment) The [facility] Department of Internal Medicine recommendsusing National Osteoporosis [...] alternative screening schedule based on ilsa Morrison., [facility] for patients with osteopenia (based on hip BMD T-score) is as follows: * advanced osteopenia (T scores -2.00 to -2.49), BMD testing every year * moderate osteopenia (T scores -1.50 to -1.99), BMD testing every 5years mild osteopenia or normal BMD (T scores -1.50 and higher), BMD testingevery 15 years Lori Acuna DO [facility] DXA P ROCEDURES from Last 3 Months or Most Recently Relevant to Health Maintenance Care Teams Recovery Analyst Relationship Specialty Start Date End Date Alexandra Bravo MD [address] [place] [address] PCP - General Internal Medicine 10/16/20
--- OUTSIDE RECORDS SUMMARY | 2024-06-27 15:16 | XMS_ITS | Clinical Summary ---
Author Organization [facility] Address [address] [facility] [address] [place] [address] Phone Care Team Providers Care Veterinary Toxicologist Name Role Phone JenarehanaLori Stephenson DO Primary [...] age to complete this topic Insurance MEDICARE [facility] MEDICARE [facility] Care Teams Veterinary Toxicologist Relationship Specialty Start Date End Date Lori Acuna DO PCP - General Internal Medicine 09/09/20
== END 2024-06-27 14:34 | disposition home or self-care (01) ==
PROVIDERS: PCP Physician Assistant; Visit Provider Internal Medicine Nephrology
DX: E11.21 Type 2 diabetes mellitus with diabetic nephropathy (principal); N18.31 Chronic kidney disease, stage 3a; I10 Essential (primary) hypertension
CPT/HCPCS: 99214

== ENCOUNTER → 2024-06-27 13:57 | Outpatient (BNVA) | payer MEDICARE, SELFPAY | PROVIDERS: PCP Physician Assistant; Visit Provider Internal Medicine Nephrology | DX: E11.22 Type 2 diabetes mellitus with diabetic chronic kidney disease (principal); I12.9 Hypertensive chronic kidney disease with stage 1 through stage 4 chronic kidney disease, or unspecified chronic kidney disease; N18.31 Chronic kidney disease, stage 3a; E11.21 Type 2 diabetes mellitus with diabetic nephropathy; Z79.4 Long term (current) use of insulin | CPT/HCPCS: 99212 ==

== ENCOUNTER 2024-07-08 19:42 | Emergency (ER) | payer MEDICARE, SELFPAY ==
--- NOTE | 2024-07-08 | ECG_ITS ---
Test Reason : SOB Blood Pressure : */* mmHG Vent. Rate : 72 BPM Atrial Rate : 72 BPM P-R Int : 150 ms QRS Dur : 102 ms QT Int : 412 ms P-R-T Axes : 117 -68 53 degrees QTcB Int : 451 ms Normal sinus rhythm Left axis deviation Incomplete right bundle branch block Abnormal ECG When compared with ECG of 21-Dec-2021 16:57, Incomplete right bundle branch block is now Present Referred By: Generic ED Physician Electronically Signed By: JOAN MARIN
--- NOTE | ~2024-07-08 | CT_ITS ---
CLINICAL HISTORY: fall CT head without contrast Comparison: CT/SR - BRAIN WO IV CONTRAST [id number] - 04/25/17 02:52 EST Findings: No intra-axial mass, midline shift, hydrocephalus, or acute hemorrhage. Moderate cerebral atrophy. Low attenuation in the periventricular white matter consistent with chronic small-vessel ischemic gliosis. There is no sinus or mastoid fluid. The orbits are within normal limits. No skull fracture. IMPRESSION: 1. No acute intracranial findings. This document has been electronically signed by: Deniz Valdes MD on 07/09/2024 01:12:06
--- NOTE | ~2024-07-08 | XR_ITS ---
CLINICAL HISTORY: fall, pain AP pelvis and two views of the right hip Comparison: None Findings: No fracture deformity of the right hip or pelvis identified. Mild degenerative changes of the right hip. Extensive arterial vascular calcifications. IMPRESSION: No fracture deformity of the right hip or pelvis identified. This document has been electronically signed by: Deniz Valdes MD on 07/09/2024 02:01:32
--- NOTE | ~2024-07-08 | CT_ITS ---
CLINICAL HISTORY: Right hip occult fracture? CT pelvis without contrast Comparison: None Findings: Small volume right pelvic hematoma. This does not cause significant bladder displacement. The bladder is distended but thin walled. Uterus is absent. Vascular calcium. Subtle nondisplaced fracture of the right sacral ala. SI joint is intact. Additional nondisplaced comminuted fracture involving the superior and inferior pubic ramus on the right. Additional nondisplaced subcapital right femoral neck fracture. IMPRESSION: Comminuted nondisplaced fracture involving the superior and inferior pubic ramus on the right as well as a nondisplaced right sacral ala fracture. Nondisplaced subcapital right femoral neck fracture. Small right pelvic hematoma. This document has been electronically signed by: Jessenia Kenny MD on 07/09/2024 05:25:50
--- NOTE | ~2024-07-08 | CT_ITS ---
CLINICAL HISTORY: fall CT cervical spine without contrast Comparison: CT/SR - CAT SCAN CERVICAL SPINE [id number] - 04/25/17 02:52 EST Findings: Vertebral alignment is within normal limits. Multilevel degenerative changes of the cervical spine. No acute fractures or dislocations. Visualized intracranial contents are unremarkable. Soft tissues of the neck are normal. No apical pneumothorax. IMPRESSION: No acute findings. This document has been electronically signed by: Deniz Valdes MD on 07/09/2024 01:08:38
--- NOTE | ~2024-07-08 | XR_ITS ---
CLINICAL HISTORY: fall, pain 4 view, chest and right ribs Comparison: CR/AL - CHEST 1 VIEW - 07/21/18 04:36 EST Findings: Bones intact. No dislocations. No rib fracture identified. The lungs are clear. No effusion or pneumothorax. Heart size is normal. Advanced osteoarthritis of the right shoulder. Superior migration of the right humerus with undersurface remodeling of the acromion suggesting chronic full-thickness rotator cuff tear. IMPRESSION: 1. No acute fractures. This document has been electronically signed by: Deniz Valdes MD on 07/09/2024 02:01:47
[2024-07-08 19:52] VITALS: BP 200/100; BP 218/101; PULSE 73; PULSE 77; RESP 30; TEMP 34.8; O2SAT 97; BMI 29.0
[2024-07-08 20:13] LABS: MANUAL DIFF FLAG NO
[2024-07-08 20:22] LABS: Basophils Percent Auto 0.3 % (0-2); Eosinophils Absolute Auto 0.1 X10*3/uL (0.0-0.4); Eosinophils Percent Auto 0.9 % (0-4); Hematocrit 38.9 % (37.0-47.0); Hemoglobin 13.1 g/dl (12.0-16.0); Imm Gran Abs Auto 0.09 X10*3/uL (0.00-0.03); Imm Gran Pct Auto 0.8 % (0.0-0.4); Lymphocytes Percent Auto 17.4 % (20-40); Mean Corpuscular HGB Conc 33.7 g/dl (31.0-35.0); Mean Corpuscular Volume 94.9 fL (80.0-98.0); Mean Platelet Volume 10.8 fL (9.4-12.3); Monocytes Absolute Auto 0.6 X10*3/uL (0.1-1.2); Monocytes Percent Auto 4.8 % (2-11); Neutrophils Absolute Auto 8.9 x10*3/uL (2.0-8.3); Neutrophils Percent Auto 75.8 % (45-73); Platelet Count 162 X10*3/uL (160-400); Red Cell Distribution Width 13.6 % (11.0-16.0); White Blood Count 11.7 X10*3/uL (4.8-10.8)
[2024-07-08 20:34] LABS: Alanine Aminotransferase 38 U/L (0-31); Alkaline Phosphatase 104 U/L (39-117); Anion Gap 17 (12-20); Aspartate Amino Transferase 42 U/L (5-31); Bilirubin Total 0.2 mg/dL (0.0-1.0); Blood Urea Nitrogen 45 mg/dL (9-16); Calcium 9.3 mg/dL (8.4-10.2); Carbon Dioxide 13 mmol/L (22-29); Chloride 112 mmol/L (96-108); Creatinine Clr Calc Pharmacy 23.1; Estimated Glomerular Filt Rate 30; Glucose Random 163 mg/dL (60-115); Potassium 5.2 mmol/L (3.3-5.1); Sodium 137 mmol/L (135-145); Total Protein 8.5 g/dL (6.5-8.0)
--- OUTSIDE RECORDS SUMMARY | 2024-07-08 20:34 | XMS_ITS | Clinical Summary ---
Author Organization [facility] [employer] [facility] Address [address] [place] [address] Phone Care Team Providers Care Cartography Professor Name Role Phone Alexandra Bravo MD Primary Care Provider [phone] Allergies Active Allergy Reactions Criticality Noted Date Comments Sulfa (Sulfonamide Antibiotics) 06/23 Medications ASCORBIC ACID, VITAMIN C, ORAL Take by mouth. Active multivitamin (LISANDRA-PLUS E ORAL) Take by mouth. Activ e insulin syringe-needle U-100 1 mL 31 gauge x 5/16 syringe 1 Each by Does not apply route 3 times daily. 3 Active insulin syringe-needle U-100 (BD Insulin Syringe Ultra-Fine) 0.3 mL 31 gauge x 5/16 syringe USE FOUR TIMES DAILY TO ADMINISTER INSULIN 1 Active primidone (MYSOLINE) 50 mg tablet Take 1 Tablet by mouth 3 times daily. 2 Active pantoprazole (PROTONIX) 20 mg EC tablet Take 1 Tablet by mouth every morning (before breakfast). 3 Active nitroglycerin (NITROSTAT) 0.[address] 1 Tab under the tongue every 5 minutes as needed for Chest pain. 9 Active metoprolol succinate (TOPROL-XL) 50 mg 24 hr tablet Take 1 Tablet by mouth daily. 2 Active isosorbide mononitrate (IMDUR) 60 mg 24 hr tablet Take 1 Tablet by mouth daily. 2 Active insulin glargine,hum.rec .anlog (Basaglar KwikPen U-100 Insulin) 100 unit/mL (3 mL) injection pen Inject 17 Units into the skin at bedtime. Dx Code E11.22 3 Active insulin aspart (NovoLOG) 100 unit/mL injection Inject 8 Units as directed 3 times daily (with meals). 3 Active glucagon (Gvoke HypoPen 1-Pack) 0.5 mg/0.1 mL auto-injector Inject 1 Dose into the skin as needed for Other (severe hypoglycemia). 1 Active citalopram (CeleXA) 20 mg tablet Take 1 Tablet by mouth daily. 2 Active cetirizine (ZyrTEC) 10 mg capsule Take 1 Cap by mouth daily. 8 Active atorvastatin (LIPITOR) 80 mg tablet Take 1 Tablet by mouth at bedtime. 3 Active aspirin 81 mg EC tablet Take 1 Tab by mouth daily. 8 Active lancets lancets Apply 1 Each topically 4 times daily. 8 Active ferrous sulfate (IRON ORAL) Take by mouth. Act juventino calcium carbonate (CALCARB 600 ORAL) Take by mouth. Activ e CHOLECALCIFEROL, VITAMIN D3, ORAL Take by mouth. Active glucose blood test strip Use one strip four times daily to check blood sugars 8 Active Active Problems Problem Noted Date Diagnosed [...] HISTORICAL HERNIA REPAIR/VALERIY BREAST SURGERY Right PROCEDURE: MS UNLISTED PROCEDURE BREAST; COMMENT: cyst HYSTERECTOMY 05/23/1970 [...] kidney disease) stage 3, GFR 30-59 ml/min ([facility]) 11/01/2020 DX:CKD (chronic kidney dise ase) stage 3, GFR 30-59 ml/min ([facility]) Metatarsal fracture 01/05/2022 DX:Metatarsa l fracture; COMMENT: 01/11 right 5th metatarsal fracture Family History Medical History Relation Name Comments Alcohol abuse Brother x 5 Alcohol abuse Father +smoker & tar riprap worker = COPD? Heart attack Mother fatal, [...] at Not on file Legal Sex Female 5:31 PM EST Gender Identity Not on file [...] Td or Tdap) 03/12/2031 03/12/2021 Pneumococcal Vaccine: 50+ Years Completed 12/15/2015, 02/14/2015 HIB Vaccines Aged [...] patient's age to complete this topic Meningococcal B Vacine Aged Out No lo nger eligible based on patient's age to complete this topic RSV Immunization Patients Under 20 months Aged Out No longer eligible based on patient's age to complete this topic Varicella Vaccines Aged Out No longer eligible based on patient's age to complete this topic Procedures Procedure Name Priority Date/Time Associated Diagnosis Comments HM ANNUAL BMP BLOOD TEST Routine 09/22/2022 HEMOGLOBIN A1C Routine 09/01/2022 LIPID PANEL Routine 11/16/2021 DXA BONE DENSITY STUDY 1+ SITS AXIAL SKEL Routine 12/08/2016 4:04 PM EDT Other specified disorders of bone density and structure, unspecified site from Last 3 Months or Most Recently Relevant to Health Maintenance Results * Annual BMP Blood Test (09/22/2022) [facility] Annual BMP Blood Test abstracted [facility] Provider MD HEALTH MAINTENANCE Final Result * (ABNORMAL) Hemoglobin A1c (09/01/2022) [facility] Hemoglobin A1C 7.3(A) <=6.5 % Blood Venous blood specimen / Unknown [facility] Provider MD LAB BLOOD ORDERABLES Sulma l Result * Lipid panel (11/16/2021) [facility] LDL/HDL Ratio 3 0 - 4 Triglycerides 127 0 - 150 mg/dL Cholesterol 152 0 - 200 mg/dL HDL 50 >=40 mg/dL LDL Cholesterol 77 0 - 100 mg/dL Blood Venous blood specimen / Unknown [facility] Provider MD LAB BLOOD ORDERABLES Sulma l Result * DXA BONE DENSITY STUDY 1+ SITS [...] (World Health Organization Fracture Risk Assessment) [facility] Department of Internal Medicine recommends using National [...] alternative screening schedule based on ilsa Morrison., [facility] June 10, 2011 for patients with [...] years. (WorldHealth Organization Fracture Risk Assessment) [facility] Department of Internal Medicine recommendsusing National Osteoporosis [...] alternative screening schedule based on ilsa Morrison., NEJJanuary 2011 for patients with osteopenia (based on hip BMD T-score) is as follows: * advanced osteopenia (T scores -2.00 to -2.49), BMD testing every year * moderate osteopenia (T scores -1.50 to -1.99), BMD testing every 5years mild osteopenia or normal BMD (T scores -1.50 and higher), BMD testingevery 15 years Lori Acuna DO [facility] DXA PROCEDURE S Final Result from Last 3 Months or Most Recently Relevant to Health Maintenance Insurance MEDICARE [facility] Care Teams Cartography Professor Relationship Specialty Start Date End Date Alexandra Bravo MD [address] [place] [address] PCP - General Internal Medicine 10/16/20
[2024-07-08 20:37] LABS: Troponin-I High Sensitivity 6.3 ng/L (<3.5-17.0)
[2024-07-08 20:40] LABS: B Type Natriuretic Peptide 190 pg/mL (<100)
--- NOTE | 2024-07-08 20:40 | PC.NURSE ---
daughter Marielos Castaneda phone # [phone]
[2024-07-08 20:50] LABS: Influenza A PCR NEGATIVE (Negative); Influenza B PCR NEGATIVE (Negative); Resp Syncy Virus RNA Qual PCR NEGATIVE (Negative); SARS COV2 PCR INHOUSE NEGATIVE (Negative)
[2024-07-08] MEDS: Albuterol/Iprat 2.5/0.5MG 3 ML AMPUL.NEB INHALE (21:03)
[2024-07-08 21:06] VITALS: PULSE 72; RESP 28; O2SAT 99
[2024-07-08 21:39] VITALS: BP 187/61; PULSE 82; RESP 24; TEMP 34.7; O2SAT 96
--- NOTE | 2024-07-08 21:41 | ED_ITS ---
HPI - Fall General Chief Complaint: Fall Stated Complaint: fall Time Seen by Provider: 07/08/24 21:41 Source: patient Mode of arrival: EMS Limitations: no limitations History of Present Illness ED Provider: HPI Narrative: Patient is 84 years old with history of type 2 diabetes, hypertension, depression, AFib not on anticoagulation, CAD status post stent placement, COPD, CHF was apparently standing in the kitchen washing dishes lost balance and fell backwards on linoleum floor hitting her lower back to the ground complaining of pain in the right hip no loss of consciousness no significant head injury no neck pain Related Data Home Medications ?Medication ?Instructions ?Recorded ?Confirmed ascorbic acid (vitamin C) 500 mg 500 mg PO DAILY 12/30/22 05/17/24 capsule,extended release aspirin 81 mg tablet,delayed 81 mg PO DAILY 12/30/22 05/17/24 release calcium carbonate (Calcium 600) 600 mg PO DAILY 12/30/22 05/17/24 cetirizine 10 mg tablet 10 mg PO DAILY PRN 12/30/22 05/17/24 cholecalciferol (vitamin D3) 10 10 mcg PO DAILY 12/30/22 05/17/24 mcg (400 unit) capsule ferrous sulfate 325 mg (65 mg 325 mg PO DAILY 12/30/22 05/17/24 iron) tablet Previous Rx's ?Medication ?Instructions ?Recorded nitroglycerin 0.4 mg sublingual 0.4 mg sublingual Q5M PRN chest 12/30/22 tablet pain 4 days #10 tabs clobetasol 0.05 % scalp solution 1 appl topical DAILY 30 days #50 mL 05/05/23 pantoprazole 20 mg tablet,delayed 20 mg PO QAM 90 days #90 tabs 10/14/23 release citalopram 20 mg tablet 20 mg PO DAILY 90 days #90 tabs 10/18/23 isosorbide mononitrate 60 mg 60 mg PO DAILY 90 days #90 tabs 10/18/23 tablet,extended release 24 hr metoprolol succinate 50 mg 50 mg PO DAILY #90 tabs 10/18/23 tablet,extended release 24 hr atorvastatin 80 mg tablet 80 mg PO BEDTIME 90 days #90 tabs 01/16/24 insulin syringe-needle U-100 1 mL #100 ea 05/17/24 31 gauge x 5/16 (BD Insulin Syringe Ultra-Fine) primidone 125 mg tablet 125 mg PO BID 90 days #180 tabs 05/17/24 insulin glargine 100 unit/mL (3 17 unit (0.17 mL) subcut BEDTIME 06/19/24 mL) subcutaneous pen 30 days #15 mL insulin aspart U-100 100 unit/mL 8 unit (0.08 mL) subcut TID 30 06/20/24 (3 mL) subcutaneous pen (Novo #15 mL FlexPen U-100 Insulin aspart) pen needle, diabetic 31 gauge x #100 ea 06/22/24 5/16 (BD Ultra-Fine Short Pen Needle) Allergies Allergy/AdvReac Type Severity Reaction Status Date / Time Sulfa (Sulfonamide Allergy Mild HIVES Verified 07/08/24 19:55 Antibiotics) Review of Systems 2 Review of Systems: Yes all other systems are reviewed and are negative [facility] Past Medical History Medical History DMII (diabetes mellitus, type 2) Atherosclerotic cardiovascular disease Surgical History History of ankle surgery Hx of hernia repair S/P HORTENCIA (total abdominal hysterectomy) Hx laparoscopic cholecystectomy Family History Family History Mother Diabetes Father COPD (chronic obstructive pulmonary disease) Social History Social History Housing: Apartment Alcohol intake: never Patient Tobacco Use Status: Former Tobacco user e-Cigarette/Vaping Use: Never Used Advance Directives: No Advance Directives Information Provided: No service: No Current occupational status: retired Cognitive needs: No Hearing needs: No Vision needs: Yes Physical Exam 2 Vital Signs: Vital Signs: Last Vital Signs Temp 98 F 07/09/24 05:57 Pulse 99 07/09/24 05:57 Resp 22 H 07/09/24 05:57 BP 188/64 H 07/09/24 05:57 Pulse Ox 99 07/09/24 05:57 O2 Del Method Nasal Cannula 07/09/24 05:57 O2 Flow Rate 2 07/09/24 05:57 Oxygen Flow Rate 3 07/08/24 19:52 BMI result Body Mass Index 29.0 Appearance: Alert. Oriented X3. No acute distress. Eyes: PERRLA, No Nystagmus ENT: Pharynx normal. Oral Mucosa moist Neck: Normal inspection. Neck supple. CVS: Normal heart rate and rhythm. Pulses normal. Respiratory: No respiratory distress. Equal air entry bilateral, no wheezing/rales/rhonchi diffuse right rib tenderness no deformity Abdomen: Soft and nontender. Bowel sounds are present, no mass palpable, no CVA tenderness Skin: Skin warm and dry. Normal skin color. Normal skin turgor. Extremities: No lower extremity edema. No calf tenderness Neuro: Oriented X 3. No motor deficit. No sensory deficit.No cerebellar signs , cranial nerves II-XII intact Medications Administered Discontinued Medications Generic Name Dose Route Start Last Admin Trade Name Freq PRN Reason Stop Dose Admin Albuterol Sulfate 5 mg 07/09/24 04:10 07/09/24 04:21 Albuterol Sulfate (0.083%) 2.5 Mg/3 Ml Vial.Neb INHALE 07/09/24 04:11 5 mg ONCE ONE Administration Albuterol/Ipratropium 3 ml 07/08/24 20:59 07/08/24 21:03 Albuterol/Iprat 2.5/0.5mg 3 Ml Ampul.Neb INHALE 07/08/24 21:00 3 ml ONCE ONE Administration Sodium Chloride 1,000 mls @ 999 mls/hr 07/09/24 04:10 07/09/24 05:42 Ns IV 07/09/24 05:10 Infused .Q1H1M ONE Infusion Morphine Sulfate 4 mg 07/09/24 00:58 07/09/24 01:04 Morphine Sulfate 4 Mg/Ml Cartridge IVPUSH 07/09/24 00:59 4 mg ONCE ONE Administration Protocol Morphine Sulfate 2 mg 07/09/24 04:10 07/09/24 04:31 Morphine Sulfate 2 Mg/Ml Cartridge IVPUSH 07/09/24 04:11 2 mg ONCE ONE Administration Protocol Ondansetron HCl 4 mg 07/09/24 00:58 07/09/24 01:04 Ondansetron Hcl 4 Mg/2 Ml Vial IVPUSH 07/09/24 00:59 4 mg ONCE ONE Administration Medical Decision Making Medical Decision Making MDM Narrative: Patient is 84 years old with history of type 2 diabetes, hypertension, depression, AFib not on anticoagulation, CAD status post stent placement, COPD, CHF was apparently standing in the kitchen washing dishes lost balance and fell workup showed patient has nondisplaced subcapital right femoral neck fracture along with right superior and inferior pubic rami fracture case discussed with orthopedics patient will not be able to go for surgery today because of high- risk and medical clearance and they do not have Orthopedic Service for whole week after today patient was desaturating to 86% at room air has significant cardiac risk factor 7 am On further review of the pelvic fracture patient had nondisplaced right sacral ala fracture with small right pelvic hematoma will discuss the case with Trauma at [facility] for transfer 705 am Patient is signed out to Dr. Moreno pending disposition Differential Diagnosis Differential Diagnoses: The differential diagnosis associated with the presentation includes Lab Data MDM Lab Attestation statement: I reviewed the patient's lab results. 07/08/24 20:09 07/09/24 05:32 Labs: Lab Results 07/08/24 07/08/24 07/09/24 Range/Units 20:01 20:09 05:32 WBC 11.7 H (4.8-10.8) X10*3/uL RBC 4.10 L (4.20-5.50) X10*6/uL Hgb 13.1 (12.0-16.0) g/dl Hct 38.9 (37.0-47.0) % MCV 94.9 (80.0-98.0) fL MCH 32.0 (27.0-33.0) pg MCHC 33.7 (31.0-35.0) g/dl RDW 13.6 (11.0-16.0) % Plt Count 162 (160-400) X10*3/uL MPV 10.8 (9.4-12.3) fL Immature Gran % (Auto) 0.8 H (0.0-0.4) % Neut % (Auto) 75.8 H (45-73) % Lymph % (Auto) 17.4 L (20-40) % [place] % (Auto) 4.8 (2-11) % Eos % (Auto) 0.9 (0-4) % Baso % (Auto) 0.3 (0-2) % Lymph # (Auto) 2.0 (1.2-4.9) X10*3/uL [place] # (Auto) 0.6 (0.1-1.2) X10*3/uL Eos # (Auto) 0.1 (0.0-0.4) X10*3/uL Baso # (Auto) 0.0 (0.0-0.2) X10*3/uL Abs Immat Gran (auto) 0.09 H (0.00-0.03) X10*3/uL Absolute Neuts (auto) 8.9 H (2.0-8.3) x10*3/uL Absolute Nucleated RBC 0.000 (0.0-0.012) X10*3/uL Nucleated RBC % (auto) 0.0 (0.0-0.2) /100WBC VBG pH (7.32-7.43) VBG pCO2 mmHg VBG pO2 mmHg VBG HCO3 (22-26) mmol/L VBG O2 Saturation % VBG Base Excess mmol/L Sodium 137 141 (135-145) mmol/L Potassium 5.2 H 4.8 (3.3-5.1) mmol/L Chloride 112 H 115 H (96-108) mmol/L Carbon Dioxide 13 L 14 L (22-29) mmol/L Anion Gap 17 17 (12-20) BUN 45 H 48 H (9-16) mg/dL Creatinine 1.62 H 1.79 H (0.5-1.4) mg/dL Estim Creat Clear Calc 23.1 20.9 Estimated GFR 30 27 Random Glucose 163 H 261 H (60-115) mg/dL Calcium 9.3 D 8.6 D (8.4-10.2) mg/dL Total Bilirubin 0.2 (0.0-1.0) mg/dL AST 42 H (5-31) U/L ALT 38 H (0-31) U/L Alkaline Phosphatase 104 (39-117) U/L Troponin I High Sens 6.3 (<3.5-17.0) ng/L B-Natriuretic Peptide 190 H (<100) pg/mL Total Protein 8.5 H (6.5-8.0) g/dL Albumin 4.0 (3.5-5.0) g/dL Influenza Type A (PCR) NEGATIVE (Negative) Influenza Type B (PCR) NEGATIVE (Negative) RSV RNA Qual (PCR) NEGATIVE (Negative) SARS-CoV-2 RNA (RT-PCR) NEGATIVE (Negative) 07/09/24 Range/Units 05:33 WBC (4.8-10.8) X10*3/uL RBC (4.20-5.50) X10*6/uL Hgb (12.0-16.0) g/dl Hct (37.0-47.0) % MCV (80.0-98.0) fL MCH (27.0-33.0) pg MCHC (31.0-35.0) g/dl RDW (11.0-16.0) % Plt Count (160-400) X10*3/uL MPV (9.4-12.3) fL Immature Gran % (Auto) (0.0-0.4) % Neut % (Auto) (45-73) % Lymph % (Auto) (20-40) % [place] % (Auto) (2-11) % Eos % (Auto) (0-4) % Baso % (Auto) (0-2) % Lymph # (Auto) (1.2-4.9) X10*3/uL [place] # (Auto) (0.1-1.2) X10*3/uL Eos # (Auto) (0.0-0.4) X10*3/uL Baso # (Auto) (0.0-0.2) X10*3/uL Abs Immat Gran (auto) (0.00-0.03) X10*3/uL Absolute Neuts (auto) (2.0-8.3) x10*3/uL Absolute Nucleated RBC (0.0-0.012) X10*3/uL Nucleated RBC % (auto) (0.0-0.2) /100WBC VBG pH 7.31 L (7.32-7.43) VBG pCO2 28 mmHg VBG pO2 71 mmHg VBG HCO3 14 L (22-26) mmol/L VBG O2 Saturation 94.0 % VBG Base Excess -9.8 mmol/L Sodium (135-145) mmol/L Potassium (3.3-5.1) mmol/L Chloride (96-108) mmol/L Carbon Dioxide (22-29) mmol/L Anion Gap (12-20) BUN (9-16) mg/dL Creatinine (0.5-1.4) mg/dL Estim Creat Clear Calc Estimated GFR Random Glucose (60-115) mg/dL Calcium (8.4-10.2) mg/dL Total Bilirubin (0.0-1.0) mg/dL AST (5-31) U/L ALT (0-31) U/L Alkaline Phosphatase (39-117) U/L Troponin I High Sens (<3.5-17.0) ng/L B-Natriuretic Peptide (<100) pg/mL Total Protein (6.5-8.0) g/dL Albumin (3.5-5.0) g/dL Influenza Type A (PCR) (Negative) Influenza Type B (PCR) (Negative) RSV RNA Qual (PCR) (Negative) SARS-CoV-2 RNA (RT-PCR) (Negative) Independent Interpretation I performed an independent interpretation of an: EKG Interpretation: Normal sinus rhythm left axis deviation ventricular rate 72 beats per minute normal interval normal axis no acute STT wave changes no acute ischemia Radiology Impression Discussion of test interpretation with radiology: I have reviewed the radiologist's reading. Radiologist Impression: [place] [address] XRay Report Signed Patient: Alejandra Bellamy MR#: [id number] : 1940 Acct:[id number] Age/Sex: 84 / F ADM Date: 07/08/24 Loc: .ED Attending Dr: Ordering Physician: Tony Quintero MD Date of Service: 07/09/24 Procedure(s): XR ribs RT min 3V w CXR1V Accession Number(s): [id number] cc: Physician,Unknown ; Tony Quintero MD~ CLINICAL HISTORY: fall, pain 4 view, chest and right ribs Comparison: CR/IN - CHEST 1 VIEW - 07/21/18 04:36 EST Findings: Bones intact. No dislocations. No rib fracture identified. The lungs are clear. No effusion or pneumothorax. Heart size is normal. Advanced osteoarthritis of the right shoulder. Superior migration of the right humerus with undersurface remodeling of the acromion suggesting chronic full-thickness rotator cuff tear. IMPRESSION: 1. No acute fractures. This document has been electronically signed by: Deniz Valdes MD on 07/09/2024 02:01:[address] [address] XRay Report Signed Patient: Alejandra Bellamy MR#: [id number] : 1940 Acct:[id number] Age/Sex: 84 / F ADM Date: 07/08/24 Loc: HO.ED Attending Dr: Ordering Physician: Tony Quintero MD Date of Service: 07/09/24 Procedure(s): XR hip RT w PEL1V Accession Number(s): [id number] cc: Physician,Unknown ; Tony Quintero MD~ CLINICAL HISTORY: fall, pain AP pelvis and two views of the right hip Comparison: None Findings: No fracture deformity of the right hip or pelvis identified. Mild degenerative changes of the right hip. Extensive arterial vascular calcifications. IMPRESSION: No fracture deformity of the right hip or pelvis identified. This document has been electronically signed by: Deniz Valdes MD on 07/09/2024 02:01:[address] [address] [address] Scan Report Signed Patient: Alejandra Bellamy MR#: [id number] : 1940 Acct:[id number] Age/Sex: 84 / F ADM Date: 07/08/24 Loc: .ED Attending Dr: Ordering Physician: Tony Quintero MD Date of Service: 07/09/24 Procedure(s): CT head/brain wo IV con Accession Number(s): [id number] cc: Physician,Unknown ; Tony Quintero MD~ Report Number: [id number]: Total DLP = 630.82 mGy-cm CLINICAL HISTORY: fall CT head without contrast Comparison: CT/SR - BRAIN WO IV CONTRAST [id number] - 04/25/17 02:52 EST Findings: No intra-axial mass, midline shift, hydrocephalus, or acute hemorrhage. Moderate cerebral atrophy. Low attenuation in the periventricular white matter consistent with chronic small-vessel ischemic gliosis. There is no sinus or mastoid fluid. The orbits are within normal limits. No skull fracture. IMPRESSION: 1. No acute intracranial findings. This document has been electronically signed by: Deniz Valdes MD on 07/09/2024 01:12:[address] [place] [address] [address] Scan Report Signed Patient: Alejandra Bellamy MR#: [id number] : 1940 Acct:[id number] Age/Sex: 84 / F ADM Date: 07/08/24 Loc: HO.ED Attending Dr: Ordering Physician: Tony Quintero MD Date of Service: 07/09/24 Procedure(s): CT cervical spine wo IV con Accession Number(s): [id number] cc: Physician,Unknown ; Tony Quintero MD~ Report Number: [id number]: Total DLP = 322.39 mGy-cm CLINICAL HISTORY: fall CT cervical spine without contrast Comparison: CT/SR - CAT SCAN CERVICAL SPINE [id number] - 04/25/17 02:52 EST Findings: Vertebral alignment is within normal limits. Multilevel degenerative changes of the cervical spine. No acute fractures or dislocations. Visualized intracranial contents are unremarkable. Soft tissues of the neck are normal. No apical pneumothorax. IMPRESSION: No acute findings. This document has been electronically signed by: Deniz Valdes MD on 07/09/2024 01:08:[address] [place] [address] [address] Scan Report Signed Patient: Alejandra Bellamy MR#: [id number] : 1940 Acct:[id number] Age/Sex: 84 / F ADM Date: 07/08/24 Loc: HO.ED Attending Dr: Ordering Physician: Tony Quintero MD Date of Service: 07/09/24 Procedure(s): CT pelvis wo IV con Accession Number(s): [id number] cc: Physician,Unknown ; Tony Quintero MD~ Report Number: [id number]: Total DLP = 0.00 mGy-cm CLINICAL HISTORY: Right hip occult fracture? CT pelvis without contrast Comparison: None Findings: Small volume right pelvic hematoma. This does not cause significant bladder displacement. The bladder is distended but thin walled. Uterus is absent. Vascular calcium. Subtle nondisplaced fracture of the right sacral ala. SI joint is intact. Additional nondisplaced comminuted fracture involving the superior and inferior pubic ramus on the right. Additional nondisplaced subcapital right femoral neck fracture. IMPRESSION: Comminuted nondisplaced fracture involving the superior and inferior pubic ramus on the right as well as a nondisplaced right sacral ala fracture. Nondisplaced subcapital right femoral neck fracture. Small right pelvic hematoma. This document has been electronically signed by: Jessenia Kenny MD on 07/09/2024 05:25:50 Discharge Plan Discharge Clinical Impression: Fall, Closed pelvic fracture, Nondisplaced fracture of neck of right femur Patient Disposition: Still a Patient Prescriptions: No Action pantoprazole 20 mg tablet,delayed release (DR/EC) 20 mg PO QAM 90 Days Qty: 90 2RF metoprolol succinate 50 mg tablet extended release 24 hr 50 mg PO DAILY Qty: 90 2RF isosorbide mononitrate 60 mg tablet extended release 24 hr 60 mg PO DAILY 90 Days Qty: 90 2RF citalopram 20 mg tablet 20 mg PO DAILY 90 Days Qty: 90 2RF atorvastatin 80 mg tablet 80 mg PO BEDTIME 90 Days Qty: 90 2RF insulin glargine 100 unit/mL (3 mL) insulin pen 17 unit subcut BEDTIME 30 Days Qty: 15 1RF insulin aspart U-100 [Novolog FlexPen U-100 Insulin] 100 unit/mL (3 mL) insulin pen 8 unit subcut TID 30 Days Qty: 15 3RF (DME) pen needle, diabetic [BD Ultra-Fine Short Pen Needle] 31 gauge x 5/16 needle See Rx Instructions .ROUTE TID Qty: 100 8RF Rx Instructions: once Daily clobetasol 0.05 % solution 1 appl topical DAILY 30 Days Qty: 50 1RF calcium carbonate [Calcium 600] 600 mg calcium (1,500 mg) tablet 600 mg PO DAILY ferrous sulfate 325 mg (65 mg iron) tablet 325 mg PO DAILY ascorbic acid (vitamin C) 500 mg capsule, extended release 500 mg PO DAILY cholecalciferol (vitamin D3) 10 mcg (400 unit) capsule 10 mcg PO DAILY cetirizine 10 mg tablet 10 mg PO DAILY PRN aspirin 81 mg tablet,delayed release (DR/EC) 81 mg PO DAILY nitroglycerin 0.4 mg tablet, sublingual 0.4 mg sublingual Q5M PRN (Reason: chest pain) 4 Days Qty: 10 0RF Rx Instructions: do not exceed 3 doses per episode (DME) insulin syringe-needle U-100 [BD Insulin Syringe Ultra-Fine] 1 mL 31 gauge x 5/16 syringe See Rx Instructions .ROUTE .MEDSUPPLY Qty: 100 6RF Rx Instructions: Uses 3 syringes per day- needs #100 per month primidone 125 mg tablet 125 mg PO BID 90 Days Qty: 180 1RF Print Language: [place]
--- NOTE | 2024-07-08 21:47 | MHC.EDTECH ---
Pt placed on chelo hugger
[2024-07-08 22:31] VITALS: BP 164/78; PULSE 76; RESP 26; TEMP 36.6; O2SAT 96
--- NOTE | 2024-07-08 22:31 | PC.NURSE ---
patient placed on warming blanket for about 45 minutes due to low body temp. rechecked at this time and temp WNL. warming blanket shut off at this time
[2024-07-09] VITALS (10 sets, daily range): BP systolic 146–217; BP diastolic 54–76; PULSE 83–99; RESP 20–28; TEMP 36–37.4; O2SAT 86–99
[2024-07-09] MEDS: Morphine Sulfate 4 MG/ML CARTRIDGE IVPUSH (01:04)
[2024-07-09] MEDS: ondansetron HCL 4 MG/2 ML VIAL IVPUSH (01:04)
--- NOTE | 2024-07-09 04:17 | MHC.EDTECH ---
Attempted to ambulate with Pt per Dr Garcia and only able to get Pt sitting at edge of bed and standing briefly with walker and a 2 assist with another tech. Pt stated she was unable to walk, weak and in pain. Pt back into bed and repositioned. aware.
[2024-07-09] MEDS: Albuterol Sulfate (0.083%) 2.5 MG/3 ML VIAL.NEB 5 MG INHALE (04:21)
[2024-07-09] MEDS: Morphine Sulfate 2 MG/ML CARTRIDGE IVPUSH (04:31)
[2024-07-09] MEDS: 0.9 % Sodium Chloride 1,000 ML 999 ML IV (04:32)
--- NOTE | 2024-07-09 04:34 | PC.NURSE ---
Pt medicated per [facility] Plan of care ongoing.
[2024-07-09 05:40] LABS: VBG Base Excess -9.8 mmol/L; VBG HCO3 14 mmol/L (22-26); VBG pCO2 28 mmHg; VBG pH 7.31 (7.32-7.43); VBG pO2 71 mmHg
[2024-07-09 05:45] LABS: Venous Blood Gas Refer to POC result
[2024-07-09 05:48] LABS: Anion Gap 17 (12-20); Blood Urea Nitrogen 48 mg/dL (9-16); Calcium 8.6 mg/dL (8.4-10.2); Carbon Dioxide 14 mmol/L (22-29); Chloride 115 mmol/L (96-108); Creatinine Clr Calc Pharmacy 20.9; Estimated Glomerular Filt Rate 27; Glucose Random 261 mg/dL (60-115); Potassium 4.8 mmol/L (3.3-5.1); Sodium 141 mmol/L (135-145)
--- NOTE | 2024-07-09 06:17 | PC.NURSE ---
This RN assumed pt care @ 0330. Plan of care ongoing.
[2024-07-09] MEDS: Sodium Bicarbonate 650 MG TABLET PO (07:38)
--- NOTE | 2024-07-09 07:55 | MHC.EDTECH ---
I helped the RN Brianna with folldoris, Patient tolerated very well and she is resting quietly in her bet now.
[2024-07-09] MEDS: Acetaminophen 1,000 MG/100 ML PIGGYBACK 400 MG IV (08:21)
[2024-07-09] MEDS: fentaNYL citrate/PF 100 MCG/2 ML VIAL 50 MCG IVPUSH (08:25)
== END 2024-07-10 08:41 | disposition short-term general hospital (02) ==
PROVIDERS: Emergency Provider Internal Medicine; PCP Physician Assistant
DX: S72.91XA Unspecified fracture of right femur, initial encounter for closed fracture (principal); S32.9XXA Fracture of unspecified parts of lumbosacral spine and pelvis, initial encounter for closed fracture; R07.81 Pleurodynia; R06.02 Shortness of breath; M25.551 Pain in right hip; R51.9 Headache, unspecified; R11.0 Nausea; M54.2 Cervicalgia; R07.89 Other chest pain; W01.0XXA Fall on same level from slipping, tripping and stumbling without subsequent striking against object, initial encounter; Y93.89 Activity, other specified; Y92.090 Kitchen in other non-institutional residence as the place of occurrence of the external cause; Y99.8 Other external cause status; Z03.818 Encounter for observation for suspected exposure to other biological agents ruled out; Z79.899 Other long term (current) drug therapy; Z87.891 Personal history of nicotine dependence
CPT/HCPCS: 0241U; 36415; 51701; 70450; 71101; 72125; 72192; 73502; 80048; 80053; 82803; 83880; 84484; 85025; 93005; 94640; 96361; 96365; 96375; 96376; 99285; J0131; J2270; J2405; J3010

== ENCOUNTER → 2024-07-08 20:06 | Outpatient (BNV) | payer MEDICARE, SELFPAY | PROVIDERS: Emergency Provider Internal Medicine; PCP Physician Assistant; Visit Provider Internal Medicine | DX: I45.10 Unspecified right bundle-branch block (principal) | CPT/HCPCS: 93010 ==

== ENCOUNTER → 2024-07-09 | Outpatient (BNV) | payer MEDICARE, SELFPAY | PROVIDERS: Emergency Provider Internal Medicine; Visit Provider Radiology Diagnostic Radiology | DX: R07.82 Intercostal pain (principal); M25.551 Pain in right hip; M54.50 Low back pain, unspecified; R26.81 Unsteadiness on feet; W19.XXXA Unspecified fall, initial encounter | CPT/HCPCS: 70450; 71101; 72125; 73502 ==